=== PATIENT | male | born 1940 | race Caucasian/White ===

== ENCOUNTER 2018-07-03 17:22 | Emergency (ER) | payer MEDICARE, SELFPAY ==
[2018-07-03 17:23] VITALS: BP 106/90; PULSE 69; RESP 16; TEMP 36.4; O2SAT 96; BMI 36.1
--- NOTE | 2018-07-03 18:04 | CT_ITS ---
STUDY: CT THORACIC SPINE WITHOUT CONTRAST REASON FOR EXAM: Male, 78 years old. Fall. RADIATION DOSAGE (If Supplied By Facility): CTDIvol = ( 53.14 ) mGy, DLP = ( 1889.24 ) mGycm TECHNIQUE: The patient was scanned in a multi detector CT scanner. High resolution imaging was performed. Sagittal and coronal images were reconstructed. Individualized dose optimization techniques were used for this CT. COMPARISON: None. FINDINGS: There is exaggerated kyphosis. Normal alignment. There is diffuse demineralization. There has been kyphoplasty of T7. No other compression fractures are seen. There are moderate diffuse degenerative changes and diffuse ankylosis along the anterior spine. No gross compromise of the spinal canal at any level. No fractures are seen of the visualized ribs. No gross acute abnormality seen of the visualized lungs. CT/Spine Thoracic without Contras IMPRESSION: No acute abnormality. Degenerative changes.. Electronically Signed: Juanito Turcios MD at 19:58 EST , Service support ,
--- NOTE | 2018-07-03 18:04 | CT_ITS ---
STUDY: CT CERVICAL SPINE WITHOUT CONTRAST REASON FOR EXAM: Male, 78 years old. Fall. Previous surgery. RADIATION DOSAGE (If Supplied By Facility): CTDIvol = ( 32.69 ) mGy, DLP = ( 765.54 ) mGycm TECHNIQUE: High resolution transaxial imaging was performed without contrast material. Sagittal and coronal images were reconstructed. Individualized dose optimization techniques were used for this CT. COMPARISON: 02/20/2016 FINDINGS: No definite change and no acute abnormality. Stable extensive postsurgical changes of anterior cervical fusion and bony fusion at C5, C6, and C7. The fixation hardware is intact. Normal craniocervical junction. Degenerative changes between C1 and C2 but intact C1-C2 articulation. The odontoid is intact. Normal alignment. Multilevel degenerative disc disease, stable. Fusion of the visualized upper thoracic spine. Facet joints intact at all levels with prominent degenerative changes. Axial images do not show definite spinal stenosis at any level. CT/Spine Cervical without Contras IMPRESSION: No change and no acute abnormality. Degenerative and postsurgical changes. Electronically Signed: Juanito Turcios MD at 19:56 EST , Service support ,
--- NOTE | 2018-07-03 18:04 | CT_ITS ---
STUDY: CT LUMBAR SPINE WITHOUT CONTRAST REASON FOR EXAM: Male, 78 years old. Fall. Previous surgery. RADIATION DOSAGE (If Supplied By Facility): CTDIvol = ( 54.63 ) mGy, DLP = ( 2242.35 ) mGycm TECHNIQUE: The patient was scanned in a multi detector CT scanner. High resolution transaxial imaging was performed. Sagittal and coronal images were reconstructed. Individualized dose optimization techniques were used for this CT. COMPARISON: 02/20/2016 FINDINGS: No gross change or acute abnormality. No compression fractures. There is severe demineralization. Stable postsurgical changes of L4, L5, and S1 with intrapedicular screws and posterior rods, discectomies, and fusion between L4-L5 and L5-S1. Normal curvature. Normal alignment. Prominent anterior osteophytes especially at L1-L2, stable. Axial images show: L1-L2 has bilateral moderate spinal stenosis. L2-L3 has moderate to severe bilateral neural foraminal narrowing. L3-L4 has mild to moderate central canal stenosis and moderate to severe bilateral neural foraminal narrowing. L4-L5 is very difficult to interpret because of metal artifact. Probable moderate to severe bilateral neural foraminal narrowing. L5-S1 has bilateral moderate to severe neural foraminal narrowing. The visualized paraspinal soft tissues and structures show no gross acute abnormalities. Heavily calcified aorta. Sacroiliac joints are intact bilaterally. CT/Spine Lumbar without Contrast IMPRESSION: No change. No acute abnormality. No compression fractures. Multilevel degenerative and postoperative changes as detailed above. Electronically Signed: Juanito Turcios MD at 19:52 EST , Service support ,
[2018-07-03] MEDS: Morphine 4 MG/ML Syringe IV (18:50)
[2018-07-03] MEDS: Ondansetron 4 MG/2 ML Vial IV (18:51)
[2018-07-03 19:42] VITALS: BP 118/90; PULSE 68; RESP 16; O2SAT 97
[2018-07-03 19:46] VITALS: BP 132/77; PULSE 67; RESP 16; O2SAT 96
--- NOTE | 2018-07-03 20:54 | ED.VISSUMM ---
- ER Visit Summary Date of Service: 07/03/18 Chief Complaint: Fall History of Present Illness: The patient is a 78 M who lost his balance and fell backwards. He is complaining of pain throughout his entire back. He does have a history of prior back surgery and kyphoplasty. He just got an injection in his neck last week. Patient does complain of tingling in his feet. He said previously he has had tingling in his toes chronically. He did not strike his head or lose consciousness. Physical Examination: Vital signs unremarkable. Patient sitting upright in bed no acute distress. Head neck examination was no sign of trauma. He does have mild C-spine tenderness. Heart is regular rate and rhythm. Lung sounds are clear. Abdomen is soft and nontender. Active bowel sounds are noted throughout. Extremity examination was a 1/2 cm skin tear to the left elbow without bony tenderness. Full range of motion is noted. Neuro exam reveals 2+ bilateral patellar reflexes with good strength and sensation distally. He has strong pulses. Test Results: CT scan of the C-spine, T-spine, L-spine revealed no evidence of acute abnormality and no fracture. Emergency Department Course and Treatment: Patient was given a single dose of morphine and Zofran here. On repeat evaluation he feels much improved. He does have pain medication at home from his pain management doctor that he will continue. Treatment Plan: [] Disposition: Discharge Impression: 1. Mechanical fall 2. Back contusion This note was generated with [employer] dictation software. It may contain incorrect words, spelling, and punctuation that were not noted in review of the chart prior to signing ED Disposition - Plan for ED Patient: Disposition: Home or Assisted Living Chief Complaint: Fall Instructions: ED Contusion Back, ED Mechanical Fall Referrals: Reji Ross MD [STAFF PHYSICIAN] - Josi Moreira DO [Primary Care Provider] -
--- NOTE | 2018-07-03 20:54 | ED.DEP ---
ED Disposition - Plan for ED Patient: Disposition: Home or Assisted Living Chief Complaint: Fall Instructions: ED Mechanical Fall, ED Contusion Back Referrals: Josi Moreira DO [Primary Care Provider] - Reji Ross MD [STAFF PHYSICIAN] -
[2018-07-03 21:04] VITALS: BP 144/74; PULSE 71; RESP 16; O2SAT 94
== END 2018-07-03 21:06 | disposition home or self-care (01) ==
PROVIDERS: Emergency Provider Emergency Medicine; Family Provider Internal Medicine; PCP Internal Medicine
DX: S20.229A Contusion of unspecified back wall of thorax, initial encounter (principal); S30.0XXA Contusion of lower back and pelvis, initial encounter; I25.10 Atherosclerotic heart disease of native coronary artery without angina pectoris; I10 Essential (primary) hypertension; E78.00 Pure hypercholesterolemia, unspecified; G47.33 Obstructive sleep apnea (adult) (pediatric); F32.9 Major depressive disorder, single episode, unspecified; Z87.891 Personal history of nicotine dependence; Z79.82 Long term (current) use of aspirin; Z79.891 Long term (current) use of opiate analgesic; Z79.899 Other long term (current) drug therapy; W18.30XA Fall on same level, unspecified, initial encounter; Y93.89 Activity, other specified; Y92.89 Other specified places as the place of occurrence of the external cause; Y99.8 Other external cause status
CPT/HCPCS: 72125; 72128; 72131; 96374; 96375; 99285; A4216; J2405

== ENCOUNTER → 2018-10-17 17:43 | Outpatient (CLI) | payer MEDICARE, SELFPAY ==
[2018-08-01 09:35] VITALS: BMI 35.5
[2018-10-17 18:33] LABS: Amphetamine Urine VISTA NEGATIVE (<1000 ng/mL); Barbiturate Urine VISTA NEGATIVE (< 200 ng/mL); Benzodiazepine Urine VISTA POSITIVE (< 200 ng/mL); Cocaine Urine VISTA NEGATIVE (< 300 ng/mL); Ecstacy Urine VISTA NEGATIVE (< 500 ng/mL); Methadone Urine VISTA NEGATIVE (< 300 ng/mL); PCP Urine VISTA NEGATIVE (< 25 ng/mL); THC Urine VISTA NEGATIVE (< 50 ng/mL); Vista UDS pH Range 5
== END ==
PROVIDERS: Family Provider Internal Medicine; PCP Internal Medicine; Referring Provider Anesthesiology Pain Medicine; Visit Provider Anesthesiology Pain Medicine
DX: F11.20 Opioid dependence, uncomplicated (principal)
CPT/HCPCS: 80307

== ENCOUNTER 2018-12-22 11:10 | Emergency (ER) | payer MEDICARE, SELFPAY ==
[2018-08-01 09:35] VITALS: BMI 35.5
[2018-12-22 11:11] VITALS: BP 186/97; PULSE 59; RESP 16; TEMP 36.6; O2SAT 98; BMI 34.7
[2018-12-22 11:16] VITALS: O2SAT 98
--- NOTE | 2018-12-22 11:17 | CT_ITS ---
STUDY: CT BRAIN WITHOUT CONTRAST REASON FOR EXAM: Male, 78 years old. Trauma. Fall. Headache. RADIATION DOSAGE (If Supplied By Facility): CTDIvol = ( 44.99 ) mGy, DLP = ( 880.47 ) mGycm TECHNIQUE: Transaxial CT imaging of the brain was performed without administration of intravenous contrast material. Individualized dose optimization techniques were used for this CT. COMPARISON: February 20, 2016 FINDINGS: Normal soft tissue structures. Normal calvarium. There is arthritic change of the temporomandibular joints. There is moderate cerebral atrophy with widening of the extra-axial spaces and ventricular dilatation. There are areas of decreased attenuation within the white matter tracts of the supratentorial brain, consistent with microvascular disease changes. Normal basal ganglia and thalami. Normal brainstem. Normal cerebellum. There is no intracranial hemorrhage. There are no findings of an acute ischemic infarction. Normal visualized paranasal sinuses. CT/Brain/Head without Contrast IMPRESSION: Chronic involutional changes of the brain. No hemorrhage. Electronically Signed: Neymar Dong MD at 12:36 EDT , Service support ,
--- NOTE | 2018-12-22 11:18 | CT_ITS ---
STUDY: CT CERVICAL SPINE WITHOUT CONTRAST REASON FOR EXAM: Male, 78 years old. Trauma, fall, headache, neck pain RADIATION DOSAGE (If Supplied By Facility): CTDIvol = ( 35.37 ) mGy, DLP = ( 758.37 ) mGycm TECHNIQUE: Thin slice helical CT acquisition of the cervical spine without contrast. Coronal and sagittal 2-D multiplanar reformatted images were saved to the PACS archive. Individualized dose optimization techniques were used for this CT. COMPARISON: None FINDINGS: Supra clavicular and cervical soft tissues unremarkable. Apical lungs clear. Apical thoracic cage within the [id number]-hfyv intact. Odontoid, lateral masses, ring of C1 intact. Facet joints aligned and intact with moderate to moderately severe multilevel facet arthropathy/hypertrophy most prominent C2-C3 and C3-C4. Posterior elements acutely intact. Cervical vertebral body height and alignment are normal. Straightening of the expected cervical lordosis. ACDF plate and screw fixation with interbody spacers at C5-C7, surgical construct intact. Mild disc degenerative features at C4-C5. Bridging anterior osteophytes of the thoracic spine. No significant spinal canal or foraminal stenosis. CT/Spine Cervical without Contras IMPRESSION: No acute cervical spine fracture or traumatic subluxation. Electronically Signed: David Deluca MD at 12:38 EDT Tel , Service support ,
[2018-12-22 12:32] VITALS: BP 176/75; PULSE 57; RESP 14; O2SAT 94
[2018-12-22 12:38] LABS: International Normalized Ratio 1.1; Prothrombin Time (Protime)PT. 13.8 SECONDS (11.7-14.9)
--- NOTE | 2018-12-22 12:49 | ED.VIS.GEN ---
History of Present Illness Chief Complaint: Fall Detail of Chief Complaint: Headache after blunt head trauma Informant: Patient Onset: Today Context: Sudden Onset Timing: Continuous Quality: Head pain Location: Occiput Current Severity: Mild Maximum Severity: Mild Worsened by: Nothing Relieved by: Nothing Associated Symptoms: Nausea and neck pain Narrative: Patient is an elderly male with multiple medical problems who presents after fall. He states he lost his balance. He fell backwards striking his head on the floor. He complains of mild headache. He is on Coumadin. He also complains of significant neck pain. Denies paresthesia, anesthesia motor works. He denies chest pain. He denies shortness of breath. He denies vomiting or diarrhea. He denies any other symptoms. - Past Medical History (1) Physical debility Status: Acute (2) Atherosclerotic heart disease of [place] coronary artery with other forms of angina pectoris Status: Chronic Comment: [id number] and Prox RCA 01/2014 50-60% Cx disease (3) Essential (primary) hypertension Status: Chronic (4) Hyperlipidemia Status: Chronic (5) History of coronary artery stent placement Status: Resolved Comment: PCI-DANIELLE prox ramus, DANIELLE prox-mid RCA Past Medical History - Allergies and Home Meds Allergies/Adverse Reactions: Allergies codeine Allergy (Verified 08/01/18 09:36) Unknown Primary Care Physician: Josi Moreira DO [Primary Care Provider] - Prior records reviewed: Yes Surgical History: appendectomy, cholecystectomy, - - Back surgery kyphoplasty, cervical and lumbar spine surgery, arm surgery Lives: Alone Smoking Status: Former smoker Alcohol: None Drugs: None Review of Systems General: Denies: Chills, Fever, Malaise, Sweats Eyes: Denies: Visual changes - bilaterally, Blurred Vision - bilaterally, Diplopia ENT: Denies: Bilateral ear pain, Rhinorrhea, Sore throat Cardiovascular: Denies: Chest pain, Palpitations Respiratory: Denies: Dyspnea, Cough, Dyspnea on exertion Gastrointestinal: Reports: Nausea Musculoskeletal: Reports: Neck pain. Denies: Myalgias, Arthralgias, Back pain, Swelling, Extremity Pain, -, - Neurological: Reports: Headache. Denies: Weakness, Parasthesia, Numbness, -, - Endocrine: Denies: Polyuria, Polydipsia Hematologic: Reports: Easy bruising. Denies: Easy bleeding Physical Exam Vital Signs/Narrative: Vital Signs Temp Pulse Resp BP Pulse Ox 12/22/18 12:32 57 L 14 176/75 H 94 12/22/18 11:16 98 12/22/18 11:11 97.8 F 59 L 16 186/97 H 98 Inital Vital Signs reviewed: Yes General: Well nourished, Well developed, No Acute Distress Head: Normocephalic, Trauma, Tenderness - Tenderness over the occiput. There is no palpable depression. There is no clinical findings of basal skull fracture. Eyes: Perrl, EOMI. Negative for: Pale conjunctiva, Scleral icterus ENT: Moist mucous membranes, No rhinorrhea, TM's clear Neck: No lymphadenopathy, No JVD, - - Pain to palpation over C5-6 spinous process midline Cardiovascular: Regular rate, Regular rhythm, No murmurs, Normal S1, Normal S2 Respiratory: No distress, CTA bilaterally, Chest nontender Abdomen: Soft, Nontender, Nondistended, Normal bowel sounds, No masses Back: Negative for: Nontender, CVA tenderness, Spinal tenderness Extremities: Nontender, Edema Skin: Normal color, No rash. Negative for: Cyanosis, Jaundice Neurological: Alert, Oriented x3, Cranial nerves II-XII grossly intact, Normal Strength, Normal Sensation, Normal DTR - There is no clonus or Babinski sign. Psychological: Normal affect, Normal Mood Diagnostic/Tx/Re-eval Impressions Brain CT 12/22/18 11:17 IMPRESSION: Chronic involutional changes of the brain. No hemorrhage. Electronically Signed: Neymar Dong MD at 12:36 EDT , Service support , Cervical Spine CT 12/22/18 11:18 IMPRESSION: No acute cervical spine fracture or traumatic subluxation. Electronically Signed: David Deluca MD at 12:38 EDT Tel , Service support , 12/22/18 11:17 Brain/Head without Contrast [CT] Stat 12/22/18 11:18 Spine Cervical without Contras [CT] Stat - Medical Decision Making Since patient is on Coumadin with history of head trauma and headache CT of the head was obtained as well as PT/INR. Since patient has significant pain with palpation and is reluctant to move his head CT of the cervical spine was obtained. CT of the head and neck were reviewed by me and interpreted the radiologist as no acute process. INR is 1.1. Since her subtherapeutic and images are normal plan is to discharge to home with appropriate home-going instructions. ED Disposition - Plan for ED Patient: Disposition: Home or Assisted Living Diagnosis: Concussion without loss of consciousness, initial encounter, Anticoagulated on Coumadin, Sprain of ligaments of cervical spine, initial encounter Instructions: ED Mechanical Fall, ED Concussion, ED Sprain Strain Neck Prescriptions: Hydrocodone Bitart/Apap 5-325 [[place] 5MG-325MG] 1 tab PO Q6H PRN PRN 3 Days #10 tab PRN Reason: Pain Referrals: Josi Moreira DO [Primary Care Provider] - As Needed
--- NOTE | 2018-12-22 12:53 | ED.DCSUM_ITS ---
History of Present Illness Chief Complaint: Fall Detail of Chief Complaint: Headache after blunt head trauma Informant: Patient Onset: Today Context: Sudden Onset Timing: Continuous Quality: Head pain Location: Occiput Current Severity: Mild Maximum Severity: Mild Worsened by: Nothing Relieved by: Nothing Associated Symptoms: Nausea and neck pain Narrative: Patient is an elderly male with multiple medical problems who presents after fall. He states he lost his balance. He fell backwards striking his head on the floor. He complains of mild headache. He is on Coumadin. He also complains of significant neck pain. Denies paresthesia, anesthesia motor works. He denies chest pain. He denies shortness of breath. He denies vomiting or diarrhea. He denies any other symptoms. - Past Medical History (1) Physical debility Status: Acute (2) Atherosclerotic heart disease of [place] coronary artery with other forms of angina pectoris Status: Chronic Comment: [id number] and Prox RCA 01/2014 50-60% Cx disease (3) Essential (primary) hypertension Status: Chronic (4) Hyperlipidemia Status: Chronic (5) History of coronary artery stent placement Status: Resolved Comment: PCI-DANIELLE prox ramus, DANIELLE prox-mid RCA Past Medical History - Allergies and Home Meds Allergies/Adverse Reactions: Allergies codeine Allergy (Verified 08/01/18 09:36) Unknown Primary Care Physician: Josi Moreira DO [Primary Care Provider] - Prior records reviewed: Yes Surgical History: appendectomy, cholecystectomy, - - Back surgery kyphoplasty, cervical and lumbar spine surgery, arm surgery Lives: Alone Smoking Status: Former smoker Alcohol: None Drugs: None Review of Systems General: Denies: Chills, Fever, Malaise, Sweats Eyes: Denies: Visual changes - bilaterally, Blurred Vision - bilaterally, Diplopia ENT: Denies: Bilateral ear pain, Rhinorrhea, Sore throat Cardiovascular: Denies: Chest pain, Palpitations Respiratory: Denies: Dyspnea, Cough, Dyspnea on exertion Gastrointestinal: Reports: Nausea Musculoskeletal: Reports: Neck pain. Denies: Myalgias, Arthralgias, Back pain, Swelling, Extremity Pain, -, - Neurological: Reports: Headache. Denies: Weakness, Parasthesia, Numbness, -, - Endocrine: Denies: Polyuria, Polydipsia Hematologic: Reports: Easy bruising. Denies: Easy bleeding Physical Exam Vital Signs/Narrative: Vital Signs Temp Pulse Resp BP Pulse Ox 12/22/18 12:32 57 L 14 176/75 H 94 12/22/18 11:16 98 12/22/18 11:11 97.8 F 59 L 16 186/97 H 98 Inital Vital Signs reviewed: Yes General: Well nourished, Well developed, No Acute Distress Head: Normocephalic, Trauma, Tenderness - Tenderness over the occiput. There is no palpable depression. There is no clinical findings of basal skull fracture. Eyes: Perrl, EOMI. Negative for: Pale conjunctiva, Scleral icterus ENT: Moist mucous membranes, No rhinorrhea, TM's clear Neck: No lymphadenopathy, No JVD, - - Pain to palpation over C5-6 spinous process midline Cardiovascular: Regular rate, Regular rhythm, No murmurs, Normal S1, Normal S2 Respiratory: No distress, CTA bilaterally, Chest nontender Abdomen: Soft, Nontender, Nondistended, Normal bowel sounds, No masses Back: Negative for: Nontender, CVA tenderness, Spinal tenderness Extremities: Nontender, Edema Skin: Normal color, No rash. Negative for: Cyanosis, Jaundice Neurological: Alert, Oriented x3, Cranial nerves II-XII grossly intact, Normal Strength, Normal Sensation, Normal DTR - There is no clonus or Babinski sign. Psychological: Normal affect, Normal Mood Diagnostic/Tx/Re-eval Impressions Brain CT 12/22/18 11:17 IMPRESSION: Chronic involutional changes of the brain. No hemorrhage. Electronically Signed: Neymar Dong MD at 12:36 EDT , Service support , Cervical Spine CT 12/22/18 11:18 IMPRESSION: No acute cervical spine fracture or traumatic subluxation. Electronically Signed: David Deluca MD at 12:38 EDT Tel , Service support , 12/22/18 11:17 Brain/Head without Contrast [CT] Stat 12/22/18 11:18 Spine Cervical without Contras [CT] Stat - Medical Decision Making Since patient is on Coumadin with history of head trauma and headache CT of the head was obtained as well as PT/INR. Since patient has significant pain with palpation and is reluctant to move his head CT of the cervical spine was obtained. CT of the head and neck were reviewed by me and interpreted the radiologist as no acute process. INR is 1.1. Since her subtherapeutic and images are normal plan is to discharge to home with appropriate home-going instructions. ED Disposition - Plan for ED Patient: Disposition: Home or Assisted Living Diagnosis: Concussion without loss of consciousness, initial encounter, Anticoagulated on Coumadin, Sprain of ligaments of cervical spine, initial encounter Instructions: ED Mechanical Fall, ED Concussion, ED Sprain Strain Neck Prescriptions: Hydrocodone Bitart/Apap 5-325 [[place] 5MG-325MG] 1 tab PO Q6H PRN PRN 3 Days #10 tab PRN Reason: Pain Referrals: Josi Moreira DO [Primary Care Provider] - As Needed
[2018-12-22] MEDS: Ondansetron 4 MG/2 ML Vial IV (13:26)
[2018-12-22] MEDS: Morphine 4 MG/ML Syringe IV (13:26)
[2018-12-22 15:59] VITALS: BP 176/83; PULSE 73; RESP 14; O2SAT 98
== END 2018-12-22 16:01 | disposition home or self-care (01) ==
PROVIDERS: Emergency Provider Emergency Medicine; Family Provider Internal Medicine; PCP Internal Medicine
DX: S06.0X0A Concussion without loss of consciousness, initial encounter (principal); S13.9XXA Sprain of joints and ligaments of unspecified parts of neck, initial encounter; I10 Essential (primary) hypertension; I25.10 Atherosclerotic heart disease of native coronary artery without angina pectoris; E78.5 Hyperlipidemia, unspecified; Z95.5 Presence of coronary angioplasty implant and graft; Z79.01 Long term (current) use of anticoagulants; Z87.891 Personal history of nicotine dependence; Z79.82 Long term (current) use of aspirin; Z79.899 Other long term (current) drug therapy; W18.30XA Fall on same level, unspecified, initial encounter; Y93.89 Activity, other specified; Y92.89 Other specified places as the place of occurrence of the external cause; Y99.8 Other external cause status
CPT/HCPCS: 70450; 72125; 85610; 96374; 96375; 99285; J7030; A4216; J2405

== ENCOUNTER → 2019-01-10 | Outpatient (CLI) | payer MEDICARE, SELFPAY ==
[2018-12-22 11:11] VITALS: BMI 34.7
--- NOTE | 2019-01-10 18:04 | RAD_ITS ---
STUDY: X-RAY - LUMBAR SPINE REASON FOR EXAM: Male, 78 years old. Fall TECHNIQUE: 4 view(s) of the lumbar spine were obtained. COMPARISON: None FINDINGS: Normal lumbar lordosis. There is no substantial scoliosis. There is a normal alignment of the vertebrae. Degenerative changes of the vertebral bodies with spurring at the endplates. Surgical fusion of L4-S1. Normal disc space heights. The soft tissue structures are unremarkable. Mildly calcified aorta. RAD/Lumbar Spine 2 or 3 Views IMPRESSION: Moderate degenerative changes of the lumbar spine. Correlate with CT or MRI if clinical symptoms persist. Electronically Signed: Adam Martinez DO at 18:52 EDT Tel [phone], Service support ,
== END | disposition home or self-care (01) ==
LOC: RAD 18:00
PROVIDERS: Family Provider Internal Medicine; PCP Internal Medicine; Referring Provider Anesthesiology Pain Medicine; Visit Provider Anesthesiology Pain Medicine
DX: M51.36 Other intervertebral disc degeneration, lumbar region (principal)
CPT/HCPCS: 72100

== ENCOUNTER → 2019-02-03 | Outpatient (CLI) | payer MEDICARE, SELFPAY ==
[2019-01-30 09:51] VITALS: BMI 33.7
--- NOTE | 2019-02-03 07:23 | MRI_ITS ---
STUDY: MRI LUMBAR SPINE WITHOUT CONTRAST REASON FOR EXAM: Male, 78 years old. Back pain with fall 4 weeks ago TECHNIQUE: Standardized fat and water weighted pulse sequences were obtained in the sagittal and axial planes. COMPARISON: 02/20/2016 FINDINGS: T12-L1: Normal endplates. Normal disc height, hydration and morphology. Normal bilateral facet joints. Normal central canal and bilateral lateral recesses. Normal bilateral intervertebral neural foramina. Normal lumbar lordosis. There is no substantial scoliosis. Normal conus medullaris that terminates at the L1 level. Bilateral posterior pedicle fusions at L4 and L5. Right posterior S1 pedicle fusion. Surgical fusions of the L4-5 and L5-S1 disc spaces. L1-2: Bulging annulus and bilateral facet hypertrophy with mild bilateral foraminal stenoses. L2-3: Bulging annulus and bilateral facet hypertrophy with mild bilateral foraminal stenoses. L3-4: Bulging annulus and bilateral facet hypertrophy with moderate bilateral foraminal stenoses. L4-5: Right laminectomy. Residual osteophytes with moderate bilateral foraminal stenoses. L5-S1: Right laminectomy. Residual osteophytes and bilateral facet hypertrophy with moderate bilateral foraminal stenoses. Normal visualized sacral ala. Normal visualized paraspinous soft tissue structures. Bone harvesting from the right ilium. MRI/Spine Lumbar (Routine) IMPRESSION: Multilevel degenerative disease and postoperative change as described. Moderate bilateral foraminal stenoses at L3-4, L4-5, and L5-S1. No significant change from prior study. Electronically Signed: Armando Leija MD at 10:23 EDT Tel , Service support ,
== END | disposition home or self-care (01) ==
LOC: MRI 07:07
PROVIDERS: Family Provider Internal Medicine; PCP Internal Medicine; Referring Provider Anesthesiology Pain Medicine; Visit Provider Anesthesiology Pain Medicine
DX: M54.9 Dorsalgia, unspecified (principal); M79.606 Pain in leg, unspecified
CPT/HCPCS: 72148

== ENCOUNTER → 2019-02-17 | Outpatient (CLI) | payer MEDICARE, SELFPAY ==
[2019-01-30 09:51] VITALS: BMI 33.7
--- NOTE | 2019-02-17 08:30 | CT_ITS ---
STUDY: CT ABDOMEN AND PELVIS WITHOUT CONTRAST REASON FOR EXAM: Male, 78 years old. RADIATION DOSAGE (If Supplied By Facility): CTDIvol = ( 30.32 ) mGy, DLP = ( 1677.81 ) mGycm TECHNIQUE: Transaxial images were obtained from the dome of the diaphragm to the symphysis pubis without oral contrast, and without intravenous contrast. Sagittal and coronal images were reconstructed. Individualized dose optimization techniques were used for this CT. COMPARISON: None. FINDINGS: The visualized lung bases are unremarkable. The visualized portions of the heart are within normal limits except for calcified coronary arteries. Normal liver. Absent gallbladder, no dilatation of the intra or extrahepatic biliary system. Normal spleen. Normal pancreas. Normal bilateral adrenal glands. Normal right kidney. Normal left kidney. Normal visualized stomach. Normal small intestine. Normal colon except for few diverticula. The appendix is absent. Atherosclerotic abdominal aorta. Normal inferior vena cava. Normal retroperitoneum. Normal urinary bladder. There is a penile prosthesis reservoir on the left side. Normal abdominal wall is unremarkable except for small umbilical hernia. Spinal fixation seen in the lower lumbar spine with hardware identified. Moderate hypertrophic osteophyte seen in the upper lumbar region. CT/Abdomen/Pelvis without Cont IMPRESSION: Negative unenhanced CT of the abdomen and pelvis. Electronically Signed: Benny Kim, at 10:07 EDT Tel , Service support ,
== END | disposition home or self-care (01) ==
LOC: CT 08:28
PROVIDERS: Family Provider Internal Medicine; PCP Internal Medicine; Referring Provider Internal Medicine; Visit Provider Internal Medicine
DX: R10.9 Unspecified abdominal pain (principal)
CPT/HCPCS: 74176

== ENCOUNTER → 2019-03-02 | Outpatient (CLI) | payer MEDICARE, SELFPAY ==
[2019-01-30 09:51] VITALS: BMI 33.7
--- NOTE | 2019-03-02 14:15 | US_ITS ---
STUDY: RENAL ULTRASOUND - COMPLETE REASON FOR EXAM: Male, 78 years old. Flank pain. TECHNIQUE: Ultrasound evaluation of the kidneys was performed with real-time and static sifuentes-scale imaging. COMPARISON: None. FINDINGS: RIGHT KIDNEY: The right kidney measures 12.5 x 5.8 x 5.8 cm. There is renal cortical thinning, 0.9 cm. Mildly echogenic cortex. There is no mass, cyst, calculus or hydronephrosis. LEFT KIDNEY: The left kidney measures 11.2 x 4.9 x 5.8 cm. Mild cortical thinning, but portions of the cortex measure up to 1.4 cm. Mildly echogenic cortex.. There is no mass, cyst, calculus or hydronephrosis. BLADDER: Distended volume 22 mL, underdistended. Grossly normal features. US/Kidney and Bladder IMPRESSION: Mildly echogenic renal cortices bilaterally with renal cortical thinning bilaterally greater on the right. There is no evidence of renal mass, cyst, calculus or hydronephrosis. Electronically Signed: David Deluca MD at 14:54 EDT Tel , Service support ,
== END | disposition home or self-care (01) ==
PROVIDERS: Family Provider Internal Medicine; PCP Internal Medicine; Referring Provider Internal Medicine; Visit Provider Internal Medicine
DX: R10.9 Unspecified abdominal pain (principal)
CPT/HCPCS: 76770

== ENCOUNTER → 2019-03-05 | Outpatient (CLI) | payer MEDICARE, SELFPAY ==
[2019-01-30 09:51] VITALS: BMI 33.7
--- NOTE | 2019-03-05 11:37 | RAD_ITS ---
STUDY: X-RAY - UNILATERAL RIBS ( LEFT ) REASON FOR EXAM: Male, 78 years old. Trauma TECHNIQUE: 4 view(s) of the ribs. COMPARISON: None. FINDINGS: There is a healed fracture of the left posterior 10th rib. There also appears to be healed fracture of the left sixth and seventh rib The visualized lung is clear and expanded. RAD/Ribs Unil 2V No CXR IMPRESSION: Healed fractures left sixth seventh and 10th ribs No evidence for acute fracture Electronically Signed: Kevyn Gu MD at 17:42 EDT , Service support ,
== END | disposition home or self-care (01) ==
LOC: HPRAD 11:33
PROVIDERS: Family Provider Internal Medicine; PCP Internal Medicine; Referring Provider Internal Medicine; Visit Provider Internal Medicine
DX: R07.81 Pleurodynia (principal)
CPT/HCPCS: 71100

== ENCOUNTER → 2019-03-13 | Outpatient (CLI) | payer MEDICARE, SELFPAY ==
[2019-01-30 09:51] VITALS: BMI 33.7
--- NOTE | 2019-03-13 18:44 | MRI_ITS ---
STUDY: MRI THORACIC SPINE WITHOUT CONTRAST REASON FOR EXAM: Male, 78 years old. Sharp left-sided back pain for 4 months. TECHNIQUE: Standardized fat and water weighted pulse sequences were obtained in the sagittal and axial planes. COMPARISON: None. FINDINGS: Normal kyphosis of the thoracic spine. There is no substantial scoliosis. T1-2, T2-3, T3-4, T4-5, T5-6, T6-7, T7-8, T8-9, T9-10, T10-11, T11-12: There is heterogeneous increased signal along the inferior endplate of T9 and superior endplate of T10 with noted mild increased signal within the disc space on STIR imaging. There is dark heterogeneous signal within the T7 vertebra consistent with methyl methacrylate treatment. Multilevel disc desiccation is noted with no evidence of disc bulge or spinal canal narrowing. Normal visualized thoracic cord. Normal conus medullaris that terminates at the . The soft tissue structures are unremarkable. MRI/Spine Thoracic (Routine) IMPRESSION: Findings consistent with acute microfracture along the superior and inferior endplate of T9 and T10. There is mild increased signal within the disc space on STIR imaging with component of early discitis not completely excluded. Recommend conservative treatment and follow-up imaging to document stability versus resolution. Electronically Signed: Jordy Trimble DO at 0:05 EDT , Service support ,
== END | disposition home or self-care (01) ==
LOC: MRI 17:39
PROVIDERS: Family Provider Internal Medicine; PCP Internal Medicine; Referring Provider Internal Medicine; Visit Provider Internal Medicine
DX: M54.6 Pain in thoracic spine (principal)
CPT/HCPCS: 72146

== ENCOUNTER 2019-05-31 12:56 | Day surgery (SDC) | payer MEDICARE, SELFPAY ==
[2019-01-30 09:51] VITALS: BMI 33.7
[2019-05-31 13:36] VITALS: BP 112/67; PULSE 64; RESP 16; TEMP 36.9; O2SAT 92; BMI 34.3
[2019-05-31] MEDS: Lactated Ringers 1,000 ML 100 ML IV (13:47)
[2019-05-31] MEDS: Bupivacaine Mpf 0.5% 30 ML VIAL (16:00)
--- NOTE | 2019-05-31 16:59 | RAD_ITS ---
STUDY: X-RAY - THORACIC SPINE REASON FOR EXAM: Male, 78 years old. Kyphoplasty TECHNIQUE: Multiple view(s) of the thoracic spine were obtained. COMPARISON: None. FINDINGS: Multiple procedural fluoroscopic views for localization during kyphoplasty procedure. Evaluation not for diagnostic purposes. RAD/Thoracic Spine 2 Views IMPRESSION: Multiple fluoroscopic views for localization during kyphoplasty. Electronically Signed: Kevyn Leyva, at 17:29 EDT Tel , Service support ,
[2019-05-31 17:08] VITALS: BP 112/67; BP 166/89; PULSE 77; RESP 18; TEMP 36.7; O2SAT 91
[2019-05-31 17:15] VITALS: BP 112/67; BP 140/80; PULSE 72; RESP 18; O2SAT 95
[2019-05-31 17:30] VITALS: BP 112/67; BP 132/83; PULSE 68; RESP 18; O2SAT 96
[2019-05-31 17:35] VITALS: BP 112/67; BP 143/86; PULSE 70; RESP 18; TEMP 36.3; O2SAT 95
[2019-05-31 18:00] VITALS: BP 112/67
== END 2019-05-31 18:36 | disposition home or self-care (01) ==
LOC: SDC 12:57 → AC 12:58
PROVIDERS: Family Provider Internal Medicine; PCP Internal Medicine; Referring Provider Anesthesiology Pain Medicine; Visit Provider Anesthesiology Pain Medicine
PROC: (CPT 22513; principal; 2019-05-31 14:10)
DX: M80.08XA Age-related osteoporosis with current pathological fracture, vertebra(e), initial encounter for fracture (principal); M51.14 Intervertebral disc disorders with radiculopathy, thoracic region; I10 Essential (primary) hypertension; G47.30 Sleep apnea, unspecified; Z86.73 Personal history of transient ischemic attack (TIA), and cerebral infarction without residual deficits; K21.9 Gastro-esophageal reflux disease without esophagitis; E78.00 Pure hypercholesterolemia, unspecified; F41.9 Anxiety disorder, unspecified; F32.9 Major depressive disorder, single episode, unspecified; Z95.5 Presence of coronary angioplasty implant and graft; Z87.891 Personal history of nicotine dependence; Z79.82 Long term (current) use of aspirin; Z79.891 Long term (current) use of opiate analgesic; Z79.899 Other long term (current) drug therapy; Z79.02 Long term (current) use of antithrombotics/antiplatelets
CPT/HCPCS: 22513; 22515; 72070; 76000; J7120

== ENCOUNTER 2019-06-08 11:22 | Day surgery (SDC) | payer MEDICARE, SELFPAY ==
[2019-06-08 11:58] VITALS: BP 114/62; PULSE 56; RESP 16; TEMP 37; O2SAT 98; BMI 34.2
[2019-06-08] MEDS: Lactated Ringers 1,000 ML 100 ML IV (12:07)
[2019-06-08] MEDS: Cefazolin 2 GM in 0.9% Normal Saline 100 ML IV (13:39)
--- NOTE | 2019-06-08 13:50 | RAD_ITS ---
CLINICAL HISTORY: Male, 78 years old. Back pain. PROCEDURE: KYPHOPLASTY - T9 kyphoplasty. TECHNIQUE: (All elements of maximal sterile barrier technique followed, including US elements as applicable) Intraoperative fluoroscopic services are provided for T9 kyphoplasty. RAD/Spine 1 View Any Level IMPRESSION: Intraoperative fluoroscopic services provided for kyphoplasty of the T9 vertebrae. Electronically Signed: Rai Scott, at 8:32 EDT , Service support ,
[2019-06-08] MEDS: Bupivacaine Mpf 0.5% 30 ML VIAL (14:20)
[2019-06-08 14:43] VITALS: BP 114/62; BP 143/74; PULSE 55; RESP 16; TEMP 36.3; O2SAT 92
[2019-06-08 15:00] VITALS: BP 114/62; BP 142/109; PULSE 58; RESP 16; O2SAT 92
[2019-06-08 15:15] VITALS: BP 114/62; BP 132/67; PULSE 62; RESP 16; O2SAT 94
[2019-06-08 15:20] VITALS: BP 114/62; BP 133/68; PULSE 62; RESP 16; TEMP 36.6; O2SAT 92
[2019-06-08 15:56] VITALS: BP 114/62
== END 2019-06-08 16:14 | disposition home or self-care (01) ==
LOC: SDC 11:22 → AC 11:23
PROVIDERS: Family Provider Internal Medicine; PCP Internal Medicine; Referring Provider Anesthesiology Pain Medicine; Visit Provider Anesthesiology Pain Medicine
PROC: (CPT 22513; principal; 2019-06-08 12:45)
DX: M80.08XA Age-related osteoporosis with current pathological fracture, vertebra(e), initial encounter for fracture (principal); M51.14 Intervertebral disc disorders with radiculopathy, thoracic region; K21.9 Gastro-esophageal reflux disease without esophagitis; E78.00 Pure hypercholesterolemia, unspecified; F32.9 Major depressive disorder, single episode, unspecified; I10 Essential (primary) hypertension; Z95.5 Presence of coronary angioplasty implant and graft; Z87.891 Personal history of nicotine dependence; Z79.82 Long term (current) use of aspirin; Z79.899 Other long term (current) drug therapy
CPT/HCPCS: 22513; 72020; 76000; J7120

== ENCOUNTER → 2019-06-14 | Outpatient (CLI) | payer MEDICARE, SELFPAY ==
[2019-06-08 11:58] VITALS: BMI 34.2
[2019-06-14 13:58] LABS: PSA,Total- Diagnostic 0.41 ng/mL (0.0-4.0)
== END | disposition home or self-care (01) ==
LOC: MTLAB 11:40
PROVIDERS: Family Provider Internal Medicine; PCP Internal Medicine; Referring Provider Urology; Visit Provider Urology
DX: R97.20 Elevated prostate specific antigen [PSA] (principal)
CPT/HCPCS: 36415; 84153

== ENCOUNTER 2019-10-17 09:45 | Emergency (ER) | payer MEDICARE, SELFPAY ==
[2019-09-06 12:40] VITALS: BMI 32.6
[2019-10-17 09:46] VITALS: BP 166/56; PULSE 68; RESP 15; TEMP 36.4; O2SAT 96; BMI 32.2
--- NOTE | 2019-10-17 10:01 | CT_ITS ---
STUDY: CT BRAIN WITHOUT CONTRAST REASON FOR EXAM: Male, 79 years old. FALL RADIATION DOSAGE (If Supplied By Facility): CTDIvol = ( 44.99 ) mGy, DLP = ( 849.54 ) mGycm TECHNIQUE: Transaxial CT imaging of the brain was performed without administration of intravenous contrast material. Individualized dose optimization techniques were used for this CT. COMPARISON: Comparison is made with prior study dated December 22, 2018. FINDINGS: Normal soft tissue structures. Normal calvarium. There is moderate cerebral atrophy with widening of the extra-axial spaces and ventricular dilatation. There are areas of decreased attenuation within the white matter tracts of the supratentorial brain, consistent with microvascular disease changes. There are small punctate calcifications of the basal ganglia which are seen in the aging brain as a normal variant. Normal brainstem. Normal cerebellum. There is no intracranial hemorrhage. There are no findings of an acute ischemic infarction. Atherosclerotic calcification of the cavernous portions of the internal carotid arteries bilaterally. Minimal mucosal thickening of the ethmoid sinuses. CT/Brain/Head without Contrast IMPRESSION: Chronic involutional changes of the brain. Electronically Signed: Rai Scott, at 11:22 EST , Service support ,
--- NOTE | 2019-10-17 10:01 | CT_ITS ---
STUDY: CT CERVICAL SPINE WITHOUT CONTRAST REASON FOR EXAM: Male, 79 years old. FALL RADIATION DOSAGE (If Supplied By Facility): CTDIvol = ( 29.65 ) mGy, DLP = ( 683.04 ) mGycm TECHNIQUE: High resolution transaxial imaging was performed without contrast material. Sagittal and coronal images were reconstructed. Individualized dose optimization techniques were used for this CT. COMPARISON: Comparison is made with prior examination dated December 22, 2018. FINDINGS: Normal craniovertebral junction. There are degenerative changes of the anterior atlantoaxial articulation. Normal odontoid process. Normal cervical lordosis. The patient is status post anterior screw and plate fixation at the C5-C6 and C6-C7 levels. C2-3: Normal endplates. Normal disc height and morphology. Normal central canal and intervertebral neuroforamina. C3-4: Facet joint osteoarthritis and hypertrophy with moderate degree of bilateral neural foraminal stenosis. C4-5: Facet joint osteoarthritis and hypertrophy with bilateral moderate degree of neural foraminal stenosis. C5-6: Status post anterior fusion. C6-7: Status post anterior fusion. C7-T1: Normal endplates. Normal disc height and morphology. Normal central canal and intervertebral neuroforamina. Normal visualized soft tissue structures. CT/Spine Cervical without Contras IMPRESSION: Multilevel degenerative changes, as described above. Status post anterior fusion at the C5-C6 and C6-C7 levels. Electronically Signed: Rai Scott, at 11:25 EST , Service support ,
--- NOTE | 2019-10-17 10:02 | RAD_ITS ---
STUDY: X-RAY - LUMBAR SPINE REASON FOR EXAM: Male, 79 years old. PATIENT FELL TODAY. PAIN IN ENTIRE SPINE AND LEFT HIP/PELVIS AREA. PATIENT STATES HAS HAD SEVERAL BACK SURGERYS. FUSIONS AND KYPHOPLASTYS WELL. TECHNIQUE: 3 view(s) of the lumbar spine were obtained. COMPARISON: 01/10/2019 FINDINGS: Normal lumbar lordosis. There is no substantial scoliosis. Status post discectomy and transpedicular fixation from L4 through S1 with anatomic alignment. There is multilevel endplate spondylosis of the lumbar vertebrae. There is multi-level degenerative disc disease with multi-level disc space narrowing. The soft tissue structures are unremarkable. RAD/Lumbar Spine 2 or 3 Views IMPRESSION: No acute fracture or subluxation Electronically Signed: David Roberts MD at 11:41 EST Tel , Service support ,
[2019-10-17] MEDS: Morphine 4 MG/ML Syringe IM (10:56)
[2019-10-17] MEDS: Ondansetron 4 MG/2 ML Vial IV (10:56)
[2019-10-17 11:10] LABS: International Normalized Ratio 1.2; Prothrombin Time (Protime)PT. 15.3 SECONDS (11.7-14.9)
--- NOTE | 2019-10-17 11:20 | RAD_ITS ---
STUDY: X-RAY - PELVIS AND LEFT HIP REASON FOR EXAM: Male, 79 years old. PATIENT FELL TODAY. PAIN IN ENTIRE SPINE AND LEFT HIP/PELVIS AREA. PATIENT STATES HAS HAD SEVERAL BACK SURGERYS. FUSIONS AND KYPHOPLASTYS WELL. TECHNIQUE: 3 views of the pelvis and hip. COMPARISON: None. FINDINGS: There is a non-specific bowel gas pattern. Normal visualized soft tissue structures. Penile implant. Normal bilateral iliac wings, sacroiliac joints and visualized sacrum. Normal bilateral superior and inferior pubic rami. Normal pubic symphysis. Normal bilateral ischial tuberosities. Normal visualized femoral head. Normal acetabulum. Normal hip joint. RAD/HIP, UNI W/ Pelvis 2-3 Views IMPRESSION: Normal x-ray examination of the pelvis and hip. Electronically Signed: David Roberts MD at 12:02 EST Tel , Service support ,
--- NOTE | 2019-10-17 11:31 | CT_ITS ---
STUDY: CT LUMBAR SPINE WITHOUT CONTRAST REASON FOR EXAM: Male, 79 years old. FALL, PAIN RADIATION DOSAGE (If Supplied By Facility): CTDIvol = ( 31.56 ) mGy, DLP = ( 1161.88 ) mGycm TECHNIQUE: The patient was scanned in a multi detector CT scanner. High resolution transaxial imaging was performed. Images were obtained from T12 to S1. Sagittal and coronal images were reconstructed. Individualized dose optimization techniques were used for this CT. COMPARISON: None FINDINGS: Normal lumbar lordosis. There is no substantial scoliosis. Normal vertebrae of the lumbar spine. L1-2: Moderate bilateral facet hypertrophy. No spinal stenosis or neural foraminal stenosis. L2-3: Moderate bilateral facet hypertrophy. Mild bilobed disc osteophyte complex produces mild spinal stenosis and mild bilateral neural foraminal stenosis. L3-4: Moderate bilateral facet hypertrophy. Mild broad disc osteophyte complex produces mild spinal stenosis and mild bilateral neural foraminal stenosis. L4-5: Status post discectomy, right laminectomy, transpedicular fixation with anatomic alignment and no spinal stenosis or neural foraminal stenosis. L5-S1: Status post discectomy, posterior decompression, and transpedicular fixation with anatomic alignment with no spinal stenosis or neural foraminal stenosis. Normal visualized paraspinous soft tissue structures. CT/Spine Lumbar without Contrast IMPRESSION: No acute fracture or subluxation Electronically Signed: David Roberts MD at 12:08 EST Tel , Service support ,
[2019-10-17 12:09] VITALS: BP 143/66; PULSE 75; RESP 16; O2SAT 97
--- NOTE | 2019-10-17 12:34 | ED.DCSUM_ITS ---
- ER Visit Summary Date of Service: 10/17/19 Chief Complaint: Fall History of Present Illness: The patient is a [address] Moreira and Dr. Mendez. He reports that 8:00 this morning he is lost his balance and fell landing on his buttocks. Reports he did hit his head. No loss of consciousness. However, he is on Coumadin. Reports he has neck pain is 9-10 in severity, low back pain is 10 on 10 severity, right hip pain is 9 at 10 in severity, and left hip pain that is 10 out of 10 in severity. Physical Examination: Vitals: Stable. Afebrile. Neck: Mild diffuse tenderness outpatient over the entire cervical spine. No point tenderness.. Full ROM without difficulty. Back: Moderate diffuse tenderness palpation of the entire lumbar spine and paraspinous musculature in the lumbar region bilaterally. Negative straight leg raise bilaterally. 5-5 dorsiflexion, plantarflexion, extensor hallucis longus bilaterally. Normal sensation to light touch throughout.. General: A&O x 3. NAD. Cardiovascular exam: Regular rate and rhythm, no murmur, rub or gallop. Respiratory exam: Chest nontender. No crepitus. Clear to auscultation bilaterally. No wheezes or stridor. Abdominal exam: Soft, nontender, nondistended, normal bowel sounds. No pain in RUQ or LUQ specifically. No peritoneal signs. Extremity: Moderate tenderness palpation over the left greater trochanter. No pain with internal or external rotation of his hip. No pain with range of motion. Test Results: INR is 1.2. Clinical Impression(s) from Imaging Studies Brain CT 10/17/19 10:01 IMPRESSION: Chronic involutional changes of the brain. Electronically Signed: Rai Scott, at 11:22 EST , Service support , Cervical Spine CT 10/17/19 10:01 IMPRESSION: Multilevel degenerative changes, as described above. Status post anterior fusion at the C5-C6 and C6-C7 levels. Electronically Signed: Rai Scott, at 11:25 EST , Service support , Lumbar Spine X-Ray 10/17/19 10:02 IMPRESSION: No acute fracture or subluxation Electronically Signed: David Roberts MD at 11:41 EST Tel , Service support , Hip/Pelvis X-Ray 10/17/19 11:20 IMPRESSION: Normal x-ray examination of the pelvis and hip. Electronically Signed: David Roberts MD at 12:02 EST Tel , Service support , Lumbar Spine CT 10/17/19 11:31 IMPRESSION: No acute fracture or subluxation Electronically Signed: David Roberts MD at 12:08 EST Tel , Service support , Emergency Department Course and Treatment: Patient was given a dose of morphine IV with minimal relief. Is then given a dose of Dilaudid IV and is resting more comfortably. Treatment Plan: The patient was discussed with Dr. Mendez. He would like me to increase his Murdock from 10 mg 3 times daily to 10 mg 4 times daily. He will see him in the office tomorrow for repeat exam. The patient is happy with this plan. Return to the emergency department for any worsening symptoms. Disposition: To home in improved and stable condition. Impression: 1. Fall. 2. Cervical strain. 3. Acute on chronic low back pain. This note was generated with [employer] software. It may contain incorrect words, spelling, and punctuation that were not noted in review of the chart prior to signing ED Disposition - Plan for ED Patient: Instructions: BACK PAIN (Acute or Chronic) Referrals: Reji Ross MD [STAFF PHYSICIAN] - 1 Day for another exam Additional Instructions: Increase your Murdock to 4 times a day.
[2019-10-17] MEDS: HYDROmorphone 1 MG/ML Syringe IV (12:43)
[2019-10-17 13:44] VITALS: BP 139/72; PULSE 79; RESP 18; O2SAT 93
== END 2019-10-17 14:07 | disposition home or self-care (01) ==
PROVIDERS: Emergency Provider Emergency Medicine; PCP Internal Medicine
DX: S16.1XXA Strain of muscle, fascia and tendon at neck level, initial encounter (principal); M54.5 Low back pain; G89.29 Other chronic pain; I10 Essential (primary) hypertension; Z86.73 Personal history of transient ischemic attack (TIA), and cerebral infarction without residual deficits; Z79.01 Long term (current) use of anticoagulants; W18.30XA Fall on same level, unspecified, initial encounter; Y93.89 Activity, other specified; Y92.89 Other specified places as the place of occurrence of the external cause; Y99.8 Other external cause status
CPT/HCPCS: 70450; 72100; 72125; 72131; 73502; 85610; 96372; 96374; 96375; 99285; A4216; J2405

== ENCOUNTER → 2020-01-24 | Outpatient (CLI) | payer MEDICARE, SELFPAY ==
[2020-01-24 17:28] LABS: Amphetamine Urine VISTA NEGATIVE (<1000 ng/mL); Barbiturate Urine VISTA NEGATIVE (< 200 ng/mL); Benzodiazepine Urine VISTA POSITIVE (< 200 ng/mL); Cocaine Urine VISTA NEGATIVE (< 300 ng/mL); Ecstacy Urine VISTA POSITIVE (< 500 ng/mL); Methadone Urine VISTA NEGATIVE (< 300 ng/mL); PCP Urine VISTA NEGATIVE (< 25 ng/mL); THC Urine VISTA NEGATIVE (< 50 ng/mL); Vista UDS pH Range 5
== END | disposition home or self-care (01) ==
LOC: LAB 15:34
PROVIDERS: PCP Internal Medicine; Referring Provider Anesthesiology Pain Medicine; Visit Provider Anesthesiology Pain Medicine
DX: F11.20 Opioid dependence, uncomplicated (principal)
CPT/HCPCS: 80307

== ENCOUNTER → 2020-02-28 | Outpatient (CLI) | payer MEDICARE, SELFPAY ==
--- NOTE | 2020-02-28 09:36 | ECHOD_ITS ---
Reason For Study: EVAL ALDO/CSA Procedure This was a 2D Doppler, Color Flow transthoracic echocardiogram. The study was technically difficult. Due to deep respirations. Exam performed in department. Left Ventricle Normal LV size. Left ventricular systolic function is normal. The estimated ejection fraction is 55 %. Normal diastology for age. No regional wall motion abnormalities noted. Right Ventricle Normal RV size. Normal systolic function. Atria Normal left atrium. Normal right atrium. Mitral Valve Normal mitral valve. Mild (1+) eccentric mitral valve insufficiency. Tricuspid Valve Normal tricuspid valve. Mild (1+) tricuspid valve insufficiency. Pulmonary artery systolic pressure is 34 mmHg. Aortic Valve Trisinus/trileaflet aortic valve. Mild focal aortic valve calcification. Mild (1+) eccentric aortic valve insufficiency. Pericardium/Pleural No pericardial effusion. MMode/2D Measurements & Calculations LVIDd: 4.7 cm IVSd: 0.93 cm Ao root diam: 3.5 cm LVIDs: 3.2 cm LVPWd: 1.1 cm RVDd: 3.4 cm FS: 32.8 % LAV(MOD-bp): 47.1 ml LA dimension(2D): 4.6 cm LA A4 area: 17.9 cm2 LAV(MOD-bp) Indexed: 20.9 ml/m2 LAV(MOD-sp2): 43.7 ml LAV(MOD-sp4): 47.3 ml RA A4 area: 17.0 cm2 Time Measurements MV dec time: 0.30 sec Doppler Measurements & Calculations MV E max ernie: 87.7 cm/sec Lat Peak E' Ernie: 10.6 cm/sec Med Peak E' Ernie: 6.3 cm/sec MV A max ernie: 97.2 cm/sec E/E' lat: 8.3 E/E' med: 14.0 MV E/A: 0.90 Ao V2 max: 222.1 cm/sec LV V1 max: 103.7 cm/sec PA V2 max: 112.3 cm/sec Ao max P.8 mmHg LV V1 max P.3 mmHg Ao V2 mean: 162.4 cm/sec LV V1 mean P.4 mmHg Ao mean P.5 mmHg LV V1 mean: 73.0 cm/sec Ao V2 VTI: 49.4 cm LV V1 VTI: 23.7 cm TR max ernie: 270.3 cm/sec TR max P.2 mmHg Interpretation Summary Normal LV size. Left ventricular systolic function is normal. The estimated ejection fraction is 55 %. Mild (1+) tricuspid valve insufficiency. Mild (1+) eccentric aortic valve insufficiency. Mild (1+) eccentric mitral valve insufficiency. Ordering Physician: Maxime Benitez Referring Physician: Josi Moreira Performed By: Oneil, Amanda, RDCS, RVT
== END | disposition home or self-care (01) ==
LOC: CVS 09:28
PROVIDERS: PCP Internal Medicine; Referring Provider Internal Medicine Pulmonary Disease; Visit Provider Internal Medicine Pulmonary Disease
DX: I25.10 Atherosclerotic heart disease of native coronary artery without angina pectoris (principal)
CPT/HCPCS: 93306

== ENCOUNTER → 2020-04-14 | Outpatient (CLI) | payer MEDICARE, SELFPAY ==
--- NOTE | 2020-04-14 13:44 | CT_ITS ---
STUDY: CT CHEST WITH CONTRAST REASON FOR EXAM: Male, 79 years old. Right vocal cord paralysis. RADIATION DOSAGE (If Supplied By Facility): CTDIvol = ( 16.26 ) mGy, DLP = ( 750.54 ) mGycm TECHNIQUE: Transaxial imaging was performed following intravenous administration of IV 100mL Isovue-300. Multiplanar coronal and sagittal images were reformatted. Individualized dose optimization techniques were used for this CT. COMPARISON: 2016 FINDINGS: Lung windows show the lungs to be normally expanded. There is no organized infiltrate or groundglass opacifications, dependent atelectasis noted in the lung bases. Soft tissue windows show a normal-appearing thyroid gland. No suspicious axillary, mediastinal, or perihilar mass or adenopathy. No pleural or pericardial effusions. Calcified coronary vessels noted Normal enhanced pulmonary arteries. Normal aorta arch and descending thoracic aorta. There are multi-level degenerative changes of the thoracic spine. There is no demonstrated abnormality of the visualized upper abdomen. CT/Chest WITH Contrast IMPRESSION: Chronic interstitial changes with dependent atelectasis. No organized infiltrate, groundglass opacifications or noncalcified mass or nodule Calcified coronary vessels No suspicious adenopathy Electronically Signed: Tab Villegas MD at 16:19 EDT , Service support ,
[2020-04-14 14:20] LABS: CREATININE FINGERSTICK 0.9 mg/dL (0.70-1.30); EGFR FINGERSTICK > 60.0000 mL/min (>60)
== END | disposition home or self-care (01) ==
LOC: CT 13:42
PROVIDERS: PCP Internal Medicine; Referring Provider Otolaryngology Otolaryngology/Facial Plastic Surgery; Visit Provider Otolaryngology Otolaryngology/Facial Plastic Surgery
DX: J38.01 Paralysis of vocal cords and larynx, unilateral (principal); R49.0 Dysphonia
CPT/HCPCS: 71260; Q9967

== ENCOUNTER → 2020-07-21 | Outpatient (CLI) | payer MEDICARE, SELFPAY | END | disposition home or self-care (01) | LOC: LABSPEC 12:49 | PROVIDERS: PCP Internal Medicine; Visit Provider Nurse Practitioner Adult Health | DX: N30.00 Acute cystitis without hematuria (principal) | CPT/HCPCS: 87086; 87088; 87186 ==

== ENCOUNTER → 2020-08-07 13:54 | Outpatient (CLI) | payer MEDICARE, SELFPAY ==
--- NOTE | 2020-08-07 14:00 | RAD_ITS ---
STUDY: X-RAY - CERVICAL SPINE REASON FOR EXAM: Male, 80 years old. NECK PAIN AND LEFT SHOULDER PAIN. FELL 2 MONTHS AGO. TECHNIQUE: 2 view(s) of the cervical spine were obtained. COMPARISON: CT cervical spine 12/22/2018 FINDINGS: Normal anterior atlantoaxial articulation. Normal odontoid process. Patient head is tilted forward. Fusion hardware of the lower cervical spine (beginning at C5) is incompletely imaged due to shoulder attenuation. Anterior spondylosis at C4-C5 is overall similar since prior CT. No subluxation. The soft tissue structures are unremarkable. RAD/Cerv Spine 2 or 3 Views IMPRESSION: Similar degenerative and operative hardware, limiting visualization of the lower cervical spine. Electronically Signed: Stanislaw Archer MD ([place]) at 9:38 EST , Service support ,
== END ==
PROVIDERS: PCP Internal Medicine; Visit Provider Anesthesiology Pain Medicine
DX: M54.2 Cervicalgia (principal)
CPT/HCPCS: 72040

== ENCOUNTER → 2020-08-21 11:22 | Outpatient (CLI) | payer MEDICARE, SELFPAY ==
[2020-08-21 12:22] LABS: PSA,Total- Diagnostic 0.65 ng/mL (0.0-4.0)
== END ==
PROVIDERS: PCP Internal Medicine; Referring Provider Nurse Practitioner Adult Health; Visit Provider Nurse Practitioner Adult Health
DX: R97.20 Elevated prostate specific antigen [PSA] (principal)
CPT/HCPCS: 36415; 84153

== ENCOUNTER 2020-09-18 21:02 | Inpatient (IN) | payer MEDICARE, SELFPAY ==
[2020-09-18 21:03] VITALS: BP 102/54; PULSE 78; RESP 20; TEMP 37; O2SAT 91; BMI 29.8
[2020-09-18 21:09] VITALS: BP 102/54; PULSE 75; RESP 20; TEMP 37; O2SAT 92
--- NOTE | 2020-09-18 21:22 | EKG12_ITS ---
Test Reason : WEAKNESS Blood Pressure : / mmHG Vent. Rate : 071 BPM Atrial Rate : 071 BPM P-R Int : 192 ms QRS Dur : 092 ms QT Int : 398 ms P-R-T Axes : 027 -28 068 degrees QTc Int : 432 ms Normal sinus rhythm Moderate voltage criteria for LVH, may be normal variant Borderline ECG Confirmed by TESHA THOMAS, JAYRO ([id number]), editor newspaper PEGGY BARRY ([id number]) on 09/23/2020 10:46:55 AM Referred By: ASHA NOE Confirmed By:JAYRO PARKINSON MD
--- NOTE | 2020-09-18 21:23 | CT_ITS ---
STUDY: CT BRAIN WITHOUT CONTRAST REASON FOR EXAM: Male, 80 years old. INCREASING WEAKNESS/SEVERAL FALLS OVER LAST WEEK, ON COUMADIN RADIATION DOSAGE (If Supplied By Facility): CTDIvol = ( 29.71 ) mGy, DLP = ( 560.09 ) mGycm TECHNIQUE: Transaxial CT imaging of the brain was performed without administration of intravenous contrast material. Individualized dose optimization techniques were used for this CT. COMPARISON: 10/17/2019 FINDINGS: Normal soft tissue structures. Normal calvarium. Prominent ventricles and extra-axial spaces with atrophy. Normal white matter tracts of the cerebral hemispheres. Normal basal ganglia and thalami. Normal brainstem. Normal cerebellum. There is no intracranial hemorrhage. There are no findings of an acute ischemic infarction. Normal visualized paranasal sinuses. CT/Brain/Head without Contrast IMPRESSION: Age-related changes of the brain. Electronically Signed: Adam Martinez DO at 22:38 EST Tel [phone], Service support ,
--- NOTE | 2020-09-18 21:24 | CT_ITS ---
STUDY: CT CERVICAL SPINE WITHOUT CONTRAST REASON FOR EXAM: Male, 80 years old. INCREASING WEAKNESS/SEVERAL FALLS OVER LAST WEEK RADIATION DOSAGE (If Supplied By Facility): CTDIvol = ( 27.11 ) mGy, DLP = ( 512.53 ) mGycm TECHNIQUE: High resolution transaxial imaging was performed without contrast material. Sagittal and coronal images were reconstructed. Individualized dose optimization techniques were used for this CT. COMPARISON: None FINDINGS: Normal craniovertebral junction. Normal anterior atlantoaxial articulation. Normal odontoid process. Normal cervical lordosis. C2-3: Normal endplates. Normal disc height and morphology. Normal central canal and intervertebral neuroforamina. C3-4: Normal endplates. Normal disc height and morphology. Normal central canal. Degenerative facet hypertrophy narrowing the intervertebral neuroforamina, left more than right. C4-5: Normal endplates. Normal disc height and morphology. Normal central canal. Degenerative facet hypertrophy narrowing the intervertebral neuroforamina. C5-6: Status post surgical fusion. Normal central canal and intervertebral neuroforamina. C6-7: Status post surgical fusion. Normal central canal and intervertebral neuroforamina. C7-T1: Normal endplates. Normal disc height and morphology. Normal central canal and intervertebral neuroforamina. Normal visualized soft tissue structures. CT/Spine Cervical without Contras IMPRESSION: Degenerative and postsurgical changes as noted of the cervical spine. Electronically Signed: Adam Martinez DO at 23:40 EST Tel [phone], Service support ,
[2020-09-18 21:41] LABS: Absolute Lymphocyte Count 0.74 X10^3/uL (0.83-4.51); Absolute Neutrophil Count 10.8 X10^3/uL (2.0-7.7); Basophil# 0.02 X10^3/uL; Basophil% 0.2 % (0-1); Eosinophil# 0.02 X10^3/uL; Eosinophils% 0.2 % (0-5); Hematocrit 35.8 % (40-54); Hemoglobin 12.1 g/dL (13.0-16.5); Lymphocyte # 0.74 X10^3/ul (4.0); Lymphocyte % 5.9 % (19-41); Mean Corp Hgb Conc 33.8 g/dL (32-36); Mean Corpuscular Hgb 34.2 pg (27.0-32.0); Mean Corpuscular Volume 101.1 fL (80-94); Mean Platelet Vol. 10.7 fl (6.2-12.0); Monocyte# 0.97 X10^3/uL; Monocyte% 7.7 % (0-10); NRBC Flagged by Analyzer 0 % (0-5); Neutrophil # 10.79 X10^3/uL (2.7-7.7); Neutrophil % 85.2 % (47-70); Platelet Count 150 K/mm3 (150-450); RBC Distribution Width SD 48.4 fl (35.1-43.9); Red Blood Count 3.54 M/mm3 (4.6-6.2); White Blood Count 12.6 K/mm3 (4.4-11.0)
--- NOTE | 2020-09-18 22:20 | ED.DCSUM_ITS ---
- ER Visit Summary Date of Service: 09/18/20 Chief Complaint: Weakness History of Present Illness: The patient is a [address] Moreira and Dr. Mane. He reports he has generalized weakness has been gradually getting worse over the past 2 months. States that today at 515 he fell while trying to get o ut of bed. He denies any blow to the head or loss of consciousness. He is on Plavix but no other anticoagulants. He reports she has neck and diffuse back pain 7-10 severity. He denies any shoulder, wrist, or hip pain. Review of systems patient does complain of dysuria. He denies any fever, chills, sore throat, cough, chest pain, shortness of breath or any other complaints. Physical Examination: Vitals: Stable. Afebrile. General: Well-nourished and well-developed. Head: Normocephalic atraumatic. Neck: Supple, no lymphadenopathy. No JVD. Mild diffuse social patient with entire C-spine and paraspinous muscular. He has no point tenderness. Cardiovascular: Regular rate and rhythm. No murmurs. Respiratory: No respiratory distress. Clear to auscultation bilaterally. Abdominal: Soft, nontender, nondistended, normal bowel sounds. No guarding, rebound, or peritoneal signs. Back: Mild diffuse tenderness palpation over his entire thoracic and lumbar spine. Again no point tenderness. Extremities: Nontender, no edema. Skin: Normal color, no rash. Neurologic: Alert and oriented ?3. Cranial nerves II through XII are intact. Normal strength and sensation. Psych: Normal affect. Test Results: EKG is sinus at [address] changes. Is unchanged from November 2017. CBC shows a white count of 12.6 with 85 segmented neutrophils and 6 lymphocytes. H&H is 12.1 and 35.8. UA shows leukocytes, nitrites, blood, and 5-10 white blood cells. Troponin is negative. Chem-7 shows a sodium 134 and potassium of 5.2 (moderate hemolysis). Clinical Impression(s) from Imaging Studies Brain CT 09/18/20 21:23 IMPRESSION: Age-related changes of the brain. Electronically Signed: Adam Martinez DO at 22:38 EST Tel [phone], Service support , Cervical Spine CT 09/18/20 21:24 IMPRESSION: Degenerative and postsurgical changes as noted of the cervical spine. Electronically Signed: Adam Martinez DO at 23:40 EST Tel [phone], Service support , On my read the chest x-ray shows no acute disease. LS spine x-ray shows chronic changes. Thoracic spine x-rays show hardware to be intact and kyphoplasty as well as chronic changes. No acute disease. Emergency Department Course and Treatment: Patient had an IV placed. Is given a 500 cc bolus of normal saline. He refused pain and nausea medications. He is resting comfortably. Patient was given a dose of Rocephin IV. Treatment Plan: Patient will be discussed with Dr. Blount and admitted for further evaluation and treatment. Disposition: Admitted in stable condition. Impression: 1. Generalized weakness. 2. UTI. 3. Fall. This note was generated with [employer]ation software. It may contain incorrect words, spelling, and punctuation that were not noted in review of the chart prior to signing ED Disposition - Plan for ED Patient: Referrals: Josi Moreira DO [Primary Care Provider] -
[2020-09-18 22:25] LABS: ALB/GLOB Ratio 0.8 RATIO (0.9-2.4); AST(SGOT) 39 U/L (15-37); Alanine Aminotransfer ALT/SGPT 22 U/L (16-61); Albumin, Serum 3.4 g/dL (3.2-5.0); Alkaline Phosphatase 91 U/L (45-117); Anion Gap 4 (5-15); BUN 16 mg/dL (7-18); BUN/Creat Ratio 14.4 RATIO (10-20); Calcium,Total 8.6 mg/dL (8.5-10.1); Chloride 106 mmol/L (98-107); Creatinine, Serum 1.11 mg/dL (0.70-1.30); EST Glomerular Filtration Rate 68 mL/min (>60); Est Glom Filt Rate - Afr Amer 82 mL/min (>60); Estimated Creatinine Clearance 58.42 ml/min; Globulin 4.3 g/dL (2.2-4.2); Glucose 104 mg/dL (74-106); Potassium 5.2 mmol/L (3.5-5.1); Protein, Total 7.7 g/dL (6.4-8.2); Sodium Level 134 mmol/L (136-145)
--- NOTE | 2020-09-18 22:25 | RAD_ITS ---
STUDY: X-RAY - LUMBAR SPINE REASON FOR EXAM: Male, 80 years old. Multiple falls, back pain. TECHNIQUE: 3 view(s) of the lumbar spine were obtained. COMPARISON: 10/17/2019 FINDINGS: Normal lumbar lordosis. There is no substantial scoliosis. There is a normal alignment of the vertebrae. Status post pedicular screw at L4-5 S1 right, L4-5 left, disc spacer placement at L4-5, 5 S1. Multiple bridging anterior osteophytes. Disc space narrowing L5-S1. Grade 1 anterolisthesis L5 on S1 not excluded due to limited visualization. There is facet arthropathy. Neural foraminal narrowing lower lumbar spine is not excluded. There is demineralization of osseous structures. There is atherosclerotic calcification of the abdominal aorta without a demonstrated aneurysm. RAD/Lumbar Spine 2 or 3 Views IMPRESSION: No compression injury or traumatic malalignment. There is similar appearance compared to previous exam. Postsurgical changes, degenerative changes, osteopenia and atherosclerosis as above. Electronically Signed: Jazmin Walls MD at 0:47 EST , Service support ,
--- NOTE | 2020-09-18 22:25 | RAD_ITS ---
STUDY: X-RAY CHEST REASON FOR EXAM: Male, 80 years old. Weakness, recent multiple falls. TECHNIQUE: Single AP portable view of the chest. COMPARISON: 02/21/2017 FINDINGS: There are superimposed monitor leads. There is no demonstrated pneumothorax. There are areas of hyperinflation. Stable blunting right costophrenic angle. Normal size heart. Normal mediastinum and angie. Normal visualized pulmonary arteries. There is atherosclerotic calcification of the aortic arch with tortuosity. There is demineralization of the osseous structures. There are at least 3 areas of prior vertebroplasty. There is degenerative osteoarthritis of the bilateral shoulders. There is no demonstrated abnormality of the visualized soft tissue structures of the upper abdomen. RAD/Chest 1 View (Portable) IMPRESSION: Component of COPD suspected. There is no demonstrated pneumothorax. No pulmonary edema, congestive heart failure or confluent pneumonia. Other nonacute findings as outlined above. Electronically Signed: Jazmin Walls MD at 0:49 EST , Service support ,
--- NOTE | 2020-09-18 22:25 | RAD_ITS ---
STUDY: X-RAY - THORACIC SPINE REASON FOR EXAM: Male, 80 years old. Multiple falls, back pain. TECHNIQUE: 4 view(s) of the thoracic spine were obtained. COMPARISON: CT chest 06/2020 FINDINGS: There is an increase in the normal thoracic kyphosis. Prior vertebroplasty T10, T9 and T7. Minimal calcification anterior longitudinal ligament. There is no substantial scoliosis. There is demineralization of the thoracic spine with endplate spondylosis. There is multilevel disc space narrowing of the thoracic spine. The soft tissue structures are unremarkable. Prior lower cervical fusion. RAD/Thoracic Spine 3 Views IMPRESSION: Osteoporosis, degenerative changes, postsurgical changes appear stable. New compression injury or traumatic malalignment detected. Electronically Signed: Jazmin Walls MD at 0:52 EST , Service support ,
[2020-09-18 23:44] LABS: Mucous, Urine 0 SEEN /hpf (<or=2+); Squamous Epithelial Cells - UA 0 SEEN /hpf (0-5)
[2020-09-18 23:46] VITALS: PULSE 69; RESP 18; O2SAT 95
[2020-09-18 23:48] LABS: Color, Urine Yellow (Yellow); Glucose, Dipstick Normal (Normal); Ketone-Dipstick Negative (Negative); Leukocyte Esterase-Dipstick 500 /ul (Negative); Nitrite-Dipstick Positive (Negative); Occult Blood-Urine 25 /ul (Negative); Protein-Dipstick 15 mg/dl (Negative); Urine Bilirubin Dipstick Negative (Negative); Urine Clarity Clear (Clear); Urine Urobilinogen Normal (Normal)
[2020-09-18 23:53] LABS: Bacteria 1+ /hpf (None Seen); Red Blood Cells-Urine 0-5 SEEN /hpf (0-5); White Blood Cells 5-10 SEEN /hpf (0-5)
[2020-09-19] VITALS (11 sets, daily range): BP systolic 120–148; BP diastolic 59–83; PULSE 62–72; RESP 13–18; TEMP 36.3–37.1; O2SAT 92–97; BMI 29.0; BMI 29.5
[2020-09-19] MEDS: Ceftriaxone 1 GM/50 ML BAG IV ×2 (01:16→21:30)
--- NOTE | 2020-09-19 02:24 | PCM.HP.STD ---
Problem List (1) Atherosclerotic heart disease of [place] coronary artery with other forms of angina pectoris Status: Chronic Comment: UCJ-APT-Wdkjr w/ 3.0 x 12 mm Xience Xpedition Stent and YZZ-Xjyo-Sni RCA w/ 2.75 x 38 mm Xience Xpedition Stent 01/2014 (2) History of coronary artery stent placement Status: Chronic Comment: BJS-FJZ-Jfoxc w/ 3.0 x 12 mm Xience Xpedition Stent and XEM-Hhzn-Keu RCA w/ 2.75 x 38 mm Xience Xpedition Stent 01/2014 (3) Essential (primary) hypertension Status: Chronic (4) Hyperlipidemia Status: Chronic Qualifiers: (5) Physical debility Status: Acute (6) Cystitis Status: Acute History of Present Illness Date of Admission: 09/18/20 Chief Complaint: weakness The patient is a 80 year old M with a significant history of physical debility; CAD status post stent; chronic pain; depression; hyperlipidemia; sleep apnea on home CPAP; and hypertension who presents to the emergency department with a fall. Reportedly patient fell while trying to get up from his bed. His fall occurred on the same day of presentation. He fell because he was too weak. He reported that he has had weakness for several months. Associated with symptoms is chills and dysuria. Also he has poor appetite. Past Medical History Past Medical History (Chronic Problems): Chronic Problems (Last Reviewed 09/19/20 @ 02:[address] Elmo Blount MD) Atherosclerotic heart disease of [place] coronary artery with other forms of angina pectoris (Chronic) ROI-DJG-Gxsju w/ 3.0 x 12 mm Xience Xpedition Stent and FMK-Tksx-Igb RCA w/ 2.75 x 38 mm Xience Xpedition Stent 01/2014 History of coronary artery stent placement (Chronic 02/12/14) JJD-IJF-Flcya w/ 3.0 x 12 mm Xience Xpedition Stent and RTE-Ngql-Wnw RCA w/ 2.75 x 38 mm Xience Xpedition Stent 01/2014 Essential (primary) hypertension (Chronic) Hyperlipidemia (Chronic) Medical History: Medical History (Last Reviewed 09/19/20 @ 06:[address] Elmo Blount MD) Atherosclerotic heart disease of [place] coronary artery with other forms of angina pectoris (Chronic) I25.118 IYV-XOW-Gllsm w/ 3.0 x 12 mm Xience Xpedition Stent and RBO-Kwpl-Iuw RCA w/ 2.75 x 38 mm Xience Xpedition Stent 01/2014 Essential (primary) hypertension (Chronic) I10 Hyperlipidemia (Chronic) E78.5 Physical debility (Acute) R53.81 Ataxia R27.0 Chronic pain G89.29 DDD (degenerative disc disease), cervical M50.30 DDD (degenerative disc disease), lumbar M51.36 Depression F32.9 Obstructive sleep apnea G47.33 Orthostatic hypotension (Resolved) I95.1 Pain (Inactive) R52 Allergies codeine Allergy (Verified 09/18/20 21:03) Unknown Home Medications: Ambulatory Orders Medication Instructions Recorded Pravastatin [Pravachol] 40 mg PO QHS 02/05/14 Aspirin E.C. [Ecotrin] 81 mg PO DAILY@0800 02/06/14 Multivitamins,Therapeutic 1 tab PO DAILYCM #20 tab 02/07/14 [Multivitamin] Clopidogrel Bisulfate [Plavix] 75 mg PO DAILY #30 tab 02/27/14 Omeprazole [Prilosec] 40 mg PO DAILY 05/13/14 docusate sodium 100 mg capsule 100 mg PO BID cap 01/30/19 gabapentin 300 mg capsule 300 mg PO DAILY 01/30/19 hydrocodone 7.5 mg-acetaminophen 1 tab PO BID PRN tab 01/30/19 300 mg tablet sertraline 100 mg tablet 2 tab PO QHS tab 01/30/19 trazodone 100 mg tablet 100 mg PO QHS tab 09/06/19 isosorbide mononitrate 30 mg 30 mg PO QAM #30 tab 03/04/20 tablet,extended release 24 hr nitroglycerin 0.4 mg sublingual 0.4 mg SUBLINGUAL Q5M PRN #25 tab 03/04/20 tablet Surgical History: Surgical History (Last Reviewed 09/19/20 @ 06:[address] Elmo Blount MD) History of coronary artery stent placement (Chronic) Onset Date: 02/12/14 Z95.5 YDT-SGL-Fxzmh w/ 3.0 x 12 mm Xience Xpedition Stent and TYH-Tyhy-Tbw RCA w/ 2.75 x 38 mm Xience Xpedition Stent 01/2014 History of appendectomy Z90.49 History of back surgery Z98.890 History of kyphoplasty Z98.890 History of left heart catheterization Onset Date: 05/13/14 Z98.890 Hx of cholecystectomy Z90.49 S/P tendon repair Z98.890 RUE tendon repair Surgical History: appendectomy, cholecystectomy, - - Back surgery kyphoplasty, cervical and lumbar spine surgery, arm surgery Psychiatric History: Anxiety, Depression Smoking Status: Former smoker Review of Systems Constitutional: Reports: Anorexia, Chills, Weakness. Denies: Fever, Weight Change HEENT: Denies: Head Aches, Sinus Congestion, Sinus Drainage Cardiovascular: Denies: Chest Pain, Palpitations Respiratory: Denies: Cough, Shortness of breath at rest, Sputum production Gastrointestinal: Denies: Abdominal Pain, Nausea, Vomiting Genitourinary: Reports: Dysuria Musculoskeletal: Denies: Joint Pain, Joint Tenderness Skin: Denies: Rash, Wounds Neurological: Denies: Numbness, Tingling, Focal weakness Psychiatric: Denies: Anxiety, Depression, Homicidal Ideations, Suicidal Ideations Hematologic/ Lymphatic: Denies: Easy Bruising, Easy Bleeding VTE Information - Inpt Only VTE Present on Admission: No VTE Mechan Device Prophylaxis: None VTE Pharm Prophylaxis ordered?: Yes Patient Problems: Active and Suspected Problems (Last Reviewed 09/19/20 @ 02:[address] Elmo Blount MD) Cystitis (Acute) Physical debility (Acute) - Physical Exam Vitals/I&O's: Vital Signs Temp Pulse Resp BP Pulse Ox 97.3 F L 69 16 128/72 H 95 09/19/20 02:21 09/19/20 02:21 09/19/20 02:21 09/19/20 02:21 09/19/20 02:21 Oxygen Delivery Method Room Air Weight: 97.1 kg Body Mass Index (BMI) 29.8 Intake and Output for Last 24 Hours 09/17/20 09/18/20 09/19/20 23:59 23:59 23:59 Intake Total 550 / 550 Balance 550 / 550 General: Alert, Oriented x3, Cooperative HEENT: Atraumatic, PERRLA, EOMI, Normocephalic Neck: Supple, No JVD, Negative Carotid Bruits Lungs: Clear to auscultation, Normal air movement Cardiovascular: Regular rate, Regular Rhythm, Normal S1, Normal S2, No murmurs Abdomen: Bowel Sounds Present, Soft, Non Tender Extremities: No edema, Capillary Refill Less than 3 Seconds Skin: No rashes, No breakdown Musculoskeletal: Tenderness - Multiple spinous processes. Neurological: Cranial nerves II-XII grossly intact Psych/Mental Status: Normal Affect, Appropriate Microbiology Past 72 Hours 09/18/20 21:46 Mucosa - Nose SARS-CoV-2 Antigen (Rapid) - Final Laboratory Results 09/18/20 21:10: WBC 12.6 H, RBC 3.54 L, Hgb 12.1 L, Hct 35.8 L, MCV 101.1 H, MCH 34.2 H, MCHC 33.8, RDW Std Deviation 48.4 H, RDW Coeff of [place] 13.0, Plt Count 150, MPV 10.7, Immature Gran % (Auto) 0.800, Neut % (Auto) 85.2 H, Lymph % (Auto) 5.9 L, [place] % (Auto) 7.7, Eos % (Auto) 0.2, Baso % (Auto) 0.2, Absolute Neuts (auto) 10.8 H, Absolute Lymphs (auto) 0.74 L, Nucleated RBC % 0 09/18/20 21:10: Sodium 134 L, Potassium 5.2 H, Chloride 106, Carbon Dioxide 24.0, Anion Gap 4 L, BUN 16, Creatinine 1.11, Estim Creat Clear Calc 58.42, Est GFR (MDRD) Af Amer 82, Est GFR (MDRD) Non-Af 68, BUN/Creatinine Ratio 14.4, Glucose 104, Calcium 8.6, Total Bilirubin 1.10 H, AST 39 H, ALT 22, Alkaline Phosphatase 91, Troponin I < 0.015, Total Protein 7.7, Albumin 3.4, Globulin 4.3 H, Albumin/Globulin Ratio 0.8 L 09/18/20 23:35: Urine Color Yellow, Urine Clarity Clear, Urine pH 5.0, Ur Specific [place] 1.020, Urine Protein 15 H, Urine Glucose (UA) Normal, Urine Ketones Negative, Urine Occult Blood 25 H, Urine Nitrite Positive H, Urine Bilirubin Negative, Urine Urobilinogen Normal, Ur Leukocyte Esterase 500 H, Urine RBC 0-5 SEEN, Urine WBC 5-10 SEEN, Ur Squamous Epith Cells 0 SEEN, Urine Bacteria 1+, Urine Mucus 0 SEEN Assessment/Plan All Active Problems (Last Reviewed 09/19/20 @ 02:[address] Elmo Blount MD) Cystitis (Acute) Physical debility (Acute) Chest pain (Resolved) Left-sided chest wall pain (Resolved) Orthostatic hypotension (Resolved) The patient is a 80 year old M with a significant history of physical debility; CAD status post stent; chronic pain; depression; hyperlipidemia; obstructive sleep apnea on home CPAP; and hypertension who presents to the emergency department with weakness; fall; and dysuria and found to have abnormal urinalysis. Acute complicated cystitis Review of emergency department labs showed positive nitrite; urine occult blood; elevated urine leukocyte esterase; 1+ urine bacteria and with no urine squamous epithelial cells. Review of old records show that urine culture on 07/21/2020 was positive for presumptive E. coli. The bacteria was pansensitive to many antibiotics except ampicillin and Unasyn. Started on ceftriaxone at the emergency department. Ceftriaxone continued. Urine culture was obtained at the emergency department; follow. Acute on chronic debility with fall PT and OT to work with patient. Case management consult for disposition. Check vitamin D level Thoracic spine x-ray cervical lumbar spine x-ray cervical cervical spine CT; brain CT did not show any acute pathology. Continue home pain medication. Of note patient has a history of labile blood pressure. With his age weakness and fall cannot rule out Parkinson disease at this time. CAD status post stents Stable with no chest pain. Aspirin and Plavix continued Imdur continued Pravastatin continued Elevated liver biochemistry Patient with elevated bilirubin and elevated AST. Different diagnosis include Gilbert syndrome; hemolysis; drugs effects or other. Trend CMP. Obstructive sleep apnea On home CPAP. CPAP ordered. Chronic pain On [place]. Gabapentin continued. DVT prophylaxis Subcutaneous Lovenox ordered. Inpatient E&M: 00411 Init Hosp L3
[2020-09-19] MEDS: HYDROcodone Bitartrate/Apap 5/325 Tablet PO (03:13)
--- NOTE | 2020-09-19 03:13 | CPS ---
PT refusing PAP at this time. RN aware.
--- NOTE | 2020-09-19 03:29 | PCS.PANDOC ---
PANDEMIC DOCUMENTATION INITIATED: Date: 09/19/20 Time: 2924
[2020-09-19 06:41] LABS: Absolute Lymphocyte Count 1.19 X10^3/uL (0.83-4.51); Basophil# 0.03 X10^3/uL; Basophil% 0.3 % (0-1); Hemoglobin 11.2 g/dL (13.0-16.5); Lymphocyte # 1.19 X10^3/ul (4.0); Lymphocyte % 11.7 % (19-41); Mean Corp Hgb Conc 32.9 g/dL (32-36); Mean Corpuscular Hgb 33.3 pg (27.0-32.0); Mean Corpuscular Volume 101.2 fL (80-94); Mean Platelet Vol. 10.7 fl (6.2-12.0); Monocyte# 0.76 X10^3/uL; Monocyte% 7.5 % (0-10); NRBC Flagged by Analyzer 0 % (0-5); Neutrophil # 8.01 X10^3/uL (2.7-7.7); Neutrophil % 78.8 % (47-70); Platelet Count 115 K/mm3 (150-450); RBC Distribution Width CV 13.2 % (11.6-14.6); RBC Distribution Width SD 48.7 fl (35.1-43.9); Red Blood Count 3.36 M/mm3 (4.6-6.2); White Blood Count 10.2 K/mm3 (4.4-11.0)
[2020-09-19 07:09] LABS: ALB/GLOB Ratio 0.9 RATIO (0.9-2.4); AST(SGOT) 14 U/L (15-37); Alanine Aminotransfer ALT/SGPT 18 U/L (16-61); Albumin, Serum 3.1 g/dL (3.2-5.0); Alkaline Phosphatase 86 U/L (45-117); Anion Gap 5 (5-15); BUN 14 mg/dL (7-18); BUN/Creat Ratio 15.2 RATIO (10-20); Calcium,Total 8.4 mg/dL (8.5-10.1); Chloride 109 mmol/L (98-107); Creatinine, Serum 0.92 mg/dL (0.70-1.30); EST Glomerular Filtration Rate 84 mL/min (>60); Est Glom Filt Rate - Afr Amer 102 mL/min (>60); Estimated Creatinine Clearance 70.48 ml/min; Globulin 3.6 g/dL (2.2-4.2); Glucose 97 mg/dL (74-106); Potassium 3.7 mmol/L (3.5-5.1); Protein, Total 6.7 g/dL (6.4-8.2); Sodium Level 140 mmol/L (136-145)
[2020-09-19 08:11] LABS: Vitamin D,25 Hydroxy 40.6 ng/mL
[2020-09-19] MEDS: Isosorbide Mononitrate 30 MG Tablet PO (09:33)
[2020-09-19] MEDS: Aspirin E.C. 81 MG Tablet PO (09:33)
[2020-09-19] MEDS: Docusate Sodium 100 MG Capsule PO ×2 (09:33→21:34)
[2020-09-19] MEDS: Pantoprazole Sodium 40 MG Tablet PO (09:33)
[2020-09-19] MEDS: Enoxaparin 40 MG/0.4 ML Syringe SC (09:33)
[2020-09-19] MEDS: Gabapentin 300 MG Capsule PO (09:34)
[2020-09-19] MEDS: Multivitamins,Therapeutic Tablet 1 TABLET PO (09:34)
[2020-09-19] MEDS: Clopidogrel Bisulfate 75 MG Tablet PO (09:34)
--- NOTE | 2020-09-19 15:37 | CASEMGMT ---
SW spoke w/CM, pt and pt's in agreement that pt would benefit from going somewhere for rehab after this hospitalization. Pt and informed CM that they would prefer TCU. SW spoke w/pt and , provided a list of [facility] facilities [facility] with the star ratings. Pt and confirm they would like TCU at discharge. SW called TCU, they will have a bed for pt on the weekend. Pt's insurance is waiving precerts so pt will not need to stay here waiting for precert. SW let pt and know that TCU will have a bed for pt on the weekend. Both in agreement with plan. SW also let physician know. Green sheet is on the chart in anticipation of weekend discharge. MARIA D Keita
[2020-09-19] MEDS: 0.9% Saline Lock 10 ML Syringe IV (21:29)
[2020-09-19] MEDS: traZODone 100 MG Tablet PO (21:34)
[2020-09-19] MEDS: Pravastatin 40 MG Tablet PO (21:59)
[2020-09-19] MEDS: Sertraline 100 MG Tablet 200 MG PO (21:59)
[2020-09-20 02:12] VITALS: BP 135/84; PULSE 68; RESP 16; TEMP 36.3; O2SAT 95
--- NOTE | 2020-09-20 08:08 | PCM.TXEXTCAR ---
- Diet 09/19/20 02:39 Diet: Regular - General Food consistency:: Regular Liquid Consistency:: Regular/Thin - Routine Orders/Code Status Code Status: Full Code - Suggestions for Active Care Change Position every (hours): 3 Hours to sit in a chair: 2 Times a day to sit in chair: 3 - Therapies Weight Bearing: Weight bearing as tolerated Physical Therapy: Eval and Treat Occupational Therapy: Eval and Treat - Allergies/Procedures Done in Hospital Allergies/Adverse Reactions: Allergies codeine Allergy (Verified 09/18/20 21:03) Unknown - Type of Care/Length of Stay Estimated LOS: Convalescent Care Less Than 30 days Type of Care Needed: Skilled Rehab Potential: Fair Prognosis: Fair - Additional Orders/Day of Discharge H&P will serve as current which was dated: 09/20/20 Day of Discharge: 09/20/20 - Dietary and Speech Recommendations Dietitian Recommendations/Changes: Will continue current diet as ordered - pt does not want a therapeutic diet while in the hospital - Follow Up Care Primary Care Physician: Josi Moreira DO [Primary Care Provider] - Please follow up with your Primary Care Physician in: 1-2 weeks.
[2020-09-20] MEDS: Gabapentin 300 MG Capsule PO (08:21)
[2020-09-20] MEDS: Aspirin E.C. 81 MG Tablet PO (08:21)
[2020-09-20] MEDS: Multivitamins,Therapeutic Tablet 1 TABLET PO (08:21)
[2020-09-20 08:22] VITALS: BP 127/85; PULSE 72; RESP 18; TEMP 36.7; O2SAT 98
[2020-09-20] MEDS: HYDROcodone Bitartrate/Apap 5/325 Tablet PO (08:33)
--- NOTE | 2020-09-20 09:28 | DS.PCM_ITS ---
Discharge Date and Diagnosis - Problem List Patient Problems: Active and Suspected Problems (Last Reviewed 09/19/20 @ 06:[address] Elmo Blount MD) Cystitis (Acute) Physical debility (Acute) Date of Admission: 09/18/20 Date of Discharge: 09/20/20 - Primary Discharge Diagnosis Acute Problems: Active Problems (Last Reviewed 09/19/20 @ 06:[address] Elmo Blount MD) #1 acute cystitis, urine culture is pending at the time of discharge. #2 physical debility/functional decline, requiring placement to SNF. - Secondary Discharge Diagnosis Chronic Problems: Chronic Problems (Last Reviewed 09/19/20 @ 06:[address] Elmo Blount MD) Atherosclerotic heart disease of [place] coronary artery with other forms of angina pectoris (Chronic) YOX-CNG-Lhfce w/ 3.0 x 12 mm Xience Xpedition Stent and VPZ-Bvyl-Uul RCA w/ 2.75 x 38 mm Xience Xpedition Stent 01/2014 History of coronary artery stent placement (Chronic 02/12/14) NRO-GPN-Vwkft w/ 3.0 x 12 mm Xience Xpedition Stent and QTK-Fezj-Dhj RCA w/ 2.75 x 38 mm Xience Xpedition Stent 01/2014 Essential (primary) hypertension (Chronic) Hyperlipidemia (Chronic) Hospital Course and Treatment Imaging Results: Clinical Impression(s) from Imaging Studies Brain CT 09/18/20 21:23 IMPRESSION: Age-related changes of the brain. Electronically Signed: Adam Martinez DO at 22:38 EST Tel [phone], Service support , Cervical Spine CT 09/18/20 21:24 IMPRESSION: Degenerative and postsurgical changes as noted of the cervical spine. Electronically Signed: Adam Martinez DO at 23:40 EST Tel [phone], Service support , Chest X-Ray 09/18/20 22:25 IMPRESSION: Component of COPD suspected. There is no demonstrated pneumothorax. No pulmonary edema, congestive heart failure or confluent pneumonia. Other nonacute findings as outlined above. Electronically Signed: Jazmin Walls MD at 0:49 EST , Service support , Lumbar Spine X-Ray 09/18/20 22:25 IMPRESSION: No compression injury or traumatic malalignment. There is similar appearance compared to previous exam. Postsurgical changes, degenerative changes, osteopenia and atherosclerosis as above. Electronically Signed: Jazmin Walls MD at 0:47 EST , Service support , Thoracic Spine X-Ray 09/18/20 22:25 IMPRESSION: Osteoporosis, degenerative changes, postsurgical changes appear stable. New compression injury or traumatic malalignment detected. Electronically Signed: Jazmin Walls MD at 0:52 EST , Service support , ADDENDUM: 09/19/20 0323 IMPRESSION: Osteoporosis, degenerative changes, postsurgical changes appear stable. NO compression injury or traumatic malalignment detected. Electronically Signed: Jazmin Walls MD at 3:16 EST , Service support , Operations: None Procedures: None Summary of Care Provided: Patient seen and examined on the day of discharge and appeared to be stable to discharge to SNF. He denied any complaints. His vital signs are stable, afebrile. The patient is a 80 year old M presented to the emergency room because of weakness and fall. He was found to have acute cystitis. He had extensive imaging to rule out traumatic fractures. CT scan brain showed no acute findings. CT scan cervical spine showed no acute fractures or dislocations. X- ray of the thoracic and lumbar spine showed no acute fractures or dislocations as well. Routine blood work was remarkable for mild hyperkalemia and mild leukocytosis. Urinalysis revealed cloudy urine, positive for nitrite and leukocyte esterase, there was 5-10 WBCs and 1+ bacteria. Chest x-ray showed no acute findings. COVID-19 antigen came back negative. Patient was treated with IV Rocephin for acute cystitis as well as gentle IV fluids for hydration. He remained afebrile throughout admission, WBC is back to normal. Vital signs remained stable. Urine culture sent and it was pending at the time of discharge. Patient was evaluated by PT OT and he was appropriate for placement to group home facility. Patient discharged to TCU in a stable condition, discharged on ciprofloxacin 500 mg p.o. twice daily for 5 days of treatment, continued on his previous home medications without any changes, recommended follow-up with PCP in 1-2 week. Patient Problems: Active and Suspected Problems (Last Reviewed 09/19/20 @ 06:[address] Elmo Blount MD) Cystitis (Acute) Physical debility (Acute) - Physical Exam Vitals/I&O's: Vital Signs Temp Pulse Resp BP Pulse Ox 98.0 F 72 18 127/85 H 98 09/20/20 08:22 09/20/20 08:22 09/20/20 08:22 09/20/20 08:22 09/20/20 08:22 Oxygen Delivery Method Room Air Weight: 212 lb Body Mass Index (BMI) 29.5 Intake and Output for Last 24 Hours 09/18/20 09/19/20 09/20/20 23:59 23:59 23:59 Intake Total 1400.25 / 1400.25 64 / 64 Output Total 1125 / 1125 400 / 400 Balance 275.25 / 275.25 -336 / -336 General: Alert, Oriented x3, Cooperative, No apparent distress HEENT: Atraumatic, PERRLA, EOMI, Normocephalic Oral: Moist Mucosa, No Gingival or Mucosal Lesions/ Ulcerations Neck: Supple, No JVD, Negative Carotid Bruits, Trachea Midline, Thyroid Normal Size and Texture Lungs: Clear to auscultation, Normal air movement, No rhonchi, No wheeze, No rales Cardiovascular: Regular rate, Regular Rhythm, Normal S1, Normal S2, PMI Normal Abdomen: Bowel Sounds Present, Soft, Non Tender, Non-Distended, No Hepato- splenomegaly Extremities: No clubbing, No cyanosis, Edema Skin: No rashes, No breakdown Lymphatic: No Cervical, Supraclavicular, or Inguinal Adenopathy Neurological: Cranial nerves II-XII grossly intact, Neuro grossly intact Psych/Mental Status: Normal Affect, Appropriate Microbiology Past 72 Hours 09/18/20 21:46 Mucosa - Nose SARS-CoV-2 Antigen (Rapid) - Final Current Medications Acetaminophen (Acetaminophen 325 Mg Tablet) 650 mg PO Q6H PRN PRN PRN Reason: Pain Score 1-10/Temp > 100.7 F Hydrocodone Bitart/Acetaminophen (Hydrocodone Bitartrate/Apap 5/325 Tablet) 1.5 tablet PO BID PRN PRN PRN Reason: PAIN 1-10/10 Last Admin: 09/20/20 08:33 Dose: 1.5 tablet Documented by: Aspirin (Aspirin E.C. 81 Mg Tablet) 81 mg PO DAILY@0800 [facility] Last Admin: 09/20/20 08:21 Dose: 81 mg Documented by: Clopidogrel Bisulfate (Clopidogrel Bisulfate 75 Mg Tablet) 75 mg PO DAILY [facility] Last Admin: 09/19/20 09:34 Dose: 75 mg Documented by: Docusate Sodium (Docusate Sodium 100 Mg Capsule) 100 mg PO BID [facility] Last Admin: 09/19/20 21:34 Dose: 100 mg Documented by: Enoxaparin Sodium (Enoxaparin 40 Mg/0.4 Ml Syringe) 40 mg SC DAILY [facility] Last Admin: 09/19/20 09:33 Dose: 40 mg Documented by: Gabapentin (Gabapentin 300 Mg Capsule) [facility] Last Admin: 09/20/20 08:21 Dose: 300 mg Documented by: Ceftriaxone Sodium (Rocephin) 1 gm in 50 mls @ 100 mls/hr IV Q24@2200 [facility] Last Infusion: 09/19/20 22:00 Dose: Infused Documented by: Sodium Chloride () 250 mls @ 15 mls/hr IV .[id number] PRN PRN Reason: Saline Flush Last Infusion: 09/20/20 02:16 Dose: 0 mls/hr Documented by: Sodium Chloride () 250 mls @ 15 mls/hr IV .[id number] PRN PRN Reason: Additional IVPB Infusion Isosorbide Mononitrate (Isosorbide Mononitrate 30 Mg Tablet) 30 mg PO QAM [facility] Last Admin: 09/19/20 09:33 Dose: 30 mg Documented by: Multivitamins (Multivitamins,Therapeutic Tablet) 1 tablet [facility] Last Admin: 09/20/20 08:21 Dose: 1 tablet Documented by: Nutritional Formula (Lactose Free) (Ensure Enlive 120 Ml Liquid) 120 ml PO 4X/DAY [facility] Last Admin: 09/19/20 21:33 Dose: 120 ml Documented by: Ondansetron HCl (Ondansetron 4 Mg/2 Ml Vial) 4 mg IV Q8H PRN PRN PRN Reason: NAUSEA/VOMITING Pantoprazole Sodium (Pantoprazole Sodium 40 Mg Tablet) 40 mg PO DAILY [facility] Last Admin: 09/19/20 09:33 Dose: 40 mg Documented by: Pravastatin Sodium (Pravastatin 40 Mg Tablet) 40 mg PO QHS [facility] Last Admin: 09/19/20 21:59 Dose: 40 mg Documented by: Senna/Docusate Sodium (Senna/Docusate Sodium 1 Tablet) 2 tablet PO BID PRN PRN PRN Reason: Constipation Sertraline HCl ([facility]ine 100 Mg Tablet) [facility] Admin: 09/19/20 21:59 Dose: 200 mg Documented by: Sodium Chloride (0.9% Saline Lock 10 Ml Syringe) 10 - 40 ml IV UD PRN PRN Reason: SALINE FLUSH Last Admin: 09/19/20 21:29 Dose: 10 ml Documented by: Trazodone HCl (Trazodone 100 Mg Tablet) [facility] Last Admin: 09/19/20 21:34 Dose: 100 mg Documented by: Home Medications: Medications to take at Discharge Pravastatin [Pravachol] 40 mg PO QHS 02/05/14 Aspirin E.C. [Ecotrin] 81 mg PO DAILY@0800 02/06/14 Multivitamins,Therapeutic [Multivitamin] 1 tab PO DAILYCM #20 tab 02/07/14 Clopidogrel Bisulfate [Plavix] 75 mg PO DAILY #30 tab 02/27/14 Omeprazole [Prilosec] 40 mg PO DAILY 05/13/14 docusate sodium 100 mg capsule 100 mg PO BID cap 01/30/19 gabapentin 300 mg capsule 300 mg PO DAILY 01/30/19 hydrocodone 7.5 mg-acetaminophen 300 mg tablet 1 tab PO BID PRN tab 01/30/19 sertraline 100 mg tablet 2 tab PO QHS tab 01/30/19 trazodone 100 mg tablet 100 mg PO QHS tab 09/06/19 isosorbide mononitrate 30 mg tablet,extended release 24 hr 30 mg PO QAM #30 tab 03/04/20 nitroglycerin 0.4 mg sublingual tablet 0.4 mg SUBLINGUAL Q5M PRN #25 tab 03/04/20 Ciprofloxacin [Cipro] 500 mg PO BID #10 tab 09/20/20 Following Prescriptions Were Given to Patient: Ciprofloxacin [Cipro] 500 mg PO BID #10 tab Prescription Printed Primary Care Physician: Josi Moreira DO [Primary Care Provider] - Please follow up with your Primary Care Physician in: 1-2 weeks. Disposition: Correction facility Minutes spent on discharge:: 27 Patient Condition:: Stable Medical Necessity - Tobacco Use Smoking Status: Former smoker Meaningful Use Info Meaningful Use Diagnoses (Choose all that apply): None applicable Inpatient E&M: 97619 Disch Hosp
[2020-09-20] MEDS: Docusate Sodium 100 MG Capsule PO (09:39)
[2020-09-20] MEDS: Pantoprazole Sodium 40 MG Tablet PO (09:39)
[2020-09-20] MEDS: Clopidogrel Bisulfate 75 MG Tablet PO (09:39)
[2020-09-20] MEDS: Isosorbide Mononitrate 30 MG Tablet PO (09:39)
[2020-09-20] MEDS: Enoxaparin 40 MG/0.4 ML Syringe SC (09:39)
[2020-09-20 09:45] VITALS: PULSE 68
[2020-09-20 13:12] VITALS: BP 103/60; PULSE 69; RESP 16; TEMP 36.4; O2SAT 96
== END 2020-09-20 14:37 | disposition skilled nursing facility (03) | DRG 690 ==
LOC: ED 23:09 → MS3 09-19 01:56
PROVIDERS: Admitting Provider Hospitalist; Emergency Provider Emergency Medicine; PCP Internal Medicine; Visit Provider Hospitalist
DX: N30.00 Acute cystitis without hematuria (principal); R53.81 Other malaise; I25.118 Atherosclerotic heart disease of native coronary artery with other forms of angina pectoris; I10 Essential (primary) hypertension; E78.5 Hyperlipidemia, unspecified; Z95.5 Presence of coronary angioplasty implant and graft; Z79.02 Long term (current) use of antithrombotics/antiplatelets; Z79.899 Other long term (current) drug therapy; Z87.891 Personal history of nicotine dependence; Z87.440 Personal history of urinary (tract) infections; W06.XXXA Fall from bed, initial encounter; Y93.89 Activity, other specified; Y92.003 Bedroom of unspecified non-institutional (private) residence as the place of occurrence of the external cause; Y99.8 Other external cause status; R74.01 Elevation of levels of liver transaminase levels; G47.33 Obstructive sleep apnea (adult) (pediatric); G89.29 Other chronic pain; Z79.891 Long term (current) use of opiate analgesic; E87.5 Hyperkalemia
CPT/HCPCS: 36415; 70450; 71045; 72072; 72100; 72125; 80053; 81001; 82306; 84484; 85025; 87086; 87088; 87186; 87426; 93005; 97110; 97162; 97166; 97530; 97535; 97802; 99285; J7040; J7050; A4216

== ENCOUNTER 2020-09-20 15:00 | Inpatient (IN) | payer MEDICARE, SELFPAY ==
[2020-09-19 02:38] VITALS: BMI 29.5
[2020-09-20 15:21] VITALS: BP 131/55; PULSE 69; RESP 18; TEMP 36.3; O2SAT 96
[2020-09-20 15:59] VITALS: BMI 29.4
[2020-09-20 16:01] VITALS: BP 131/55; PULSE 69; RESP 18; TEMP 36.3; O2SAT 96
[2020-09-20 16:02] VITALS: BMI 29.4
[2020-09-20] MEDS: Ciprofloxacin 500 MG Tablet PO (17:26)
[2020-09-20] MEDS: Docusate Sodium 100 MG Capsule PO (17:26)
--- NOTE | 2020-09-20 19:25 | HP.PCM_ITS ---
Problem List (1) Debility Status: Acute (2) Urinary tract infection Status: Acute (3) Low back pain Status: Acute (4) Elevated liver enzymes Status: Acute (5) Coronary artery disease Status: Chronic (6) Hypertension Status: Chronic (7) Depression Status: Chronic (8) Sleep apnea Status: Chronic (9) GERD (gastroesophageal reflux disease) Status: Chronic (10) Neuropathic pain Status: Chronic (11) Chronic pain Status: Chronic (12) Insomnia Status: Chronic (13) Hyperlipidemia Status: Chronic Qualifiers: History of Present Illness Date of Admission: 09/20/20 Chief Complaint: Here for rehabilitation, strengthening, prior to discharge home with . 09/18/2020 The patient is a 80 year old Male with below past medical history presented to [facility] Emergency Department with weakness, fall. 09/18/2020 CT brain involutional changes of brain. 09/18/2020 CT cervical spine C5-6 status post fusion, C6-7 status post fusion. 09/18/2020 Chest X-ray chronic obstructive pulmonary disease, otherwise negative. 09/18/2020 X-ray lumbar spine, negative acute findings. 09/18/2020 X-ray thoracic spine, osteoporosis, negative acute findings. Weakness worse over 2 months, fell out of bed. Neck pain, diffuse back pain. Negative head injury. EKG okay, WBC 12.6, Troponin normal, K 5.2. UA consistent with urinary tract infection, urine culture sent. Rocephin, IV fluids given. 09/19/2020 Admit to Hospital. Rocephin IV for urinary tract infection, previous urine culture E. Coli. PT/OT for halfway facility. Trend CMP for elevated liver enzymes. Continue Cipro 500MG twice daily x 5 days to finish course for urinary tract infection. 09/20/2020 Admit to TCU with debility, here for rehabilitation, strengthening, prior to discharge home with . Past Medical History Past Medical History (Chronic Problems): Chronic Problems (Last Reviewed 09/19/20 @ 06:[address] Elmo Blount MD) Coronary artery disease (Chronic) Hypertension (Chronic) Depression (Chronic) Sleep apnea (Chronic) GERD (gastroesophageal reflux disease) (Chronic) Neuropathic pain (Chronic) Chronic pain (Chronic) Insomnia (Chronic) Atherosclerotic heart disease of [place] coronary artery with other forms of angina pectoris (Chronic) JAS-MNC-Utwsj w/ 3.0 x 12 mm Xience Xpedition Stent and ZDF-Qpcq-Exx RCA w/ 2.75 x 38 mm Xience Xpedition Stent 01/2014 History of coronary artery stent placement (Chronic 02/12/14) FXT-UTQ-Erffm w/ 3.0 x 12 mm Xience Xpedition Stent and IME-Xvda-Ppu RCA w/ 2.75 x 38 mm Xience Xpedition Stent 01/2014 Essential (primary) hypertension (Chronic) Hyperlipidemia (Chronic) Medical History: Medical History (Last Reviewed 09/19/20 @ 06:[address] Elmo Blount MD) Atherosclerotic heart disease of [place] coronary artery with other forms of angina pectoris (Chronic) I25.118 PUL-QFU-Igpsn w/ 3.0 x 12 mm Xience Xpedition Stent and QCZ-Sayg-Pmk RCA w/ 2.75 x 38 mm Xience Xpedition Stent 01/2014 Essential (primary) hypertension (Chronic) I10 Hyperlipidemia (Chronic) E78.5 Physical debility (Acute) R53.81 Ataxia R27.0 Chronic pain G89.29 DDD (degenerative disc disease), cervical M50.30 DDD (degenerative disc disease), lumbar M51.36 Depression F32.9 Obstructive sleep apnea G47.33 Orthostatic hypotension (Resolved) I95.1 Pain (Inactive) R52 Allergies codeine Allergy (Verified 09/18/20 21:03) Unknown Home Medications: Ambulatory Orders Medication Instructions Recorded Pravastatin [Pravachol] 40 mg PO QHS 02/05/14 Aspirin E.C. [Ecotrin] 81 mg PO DAILY@0800 02/06/14 Omeprazole [Prilosec] 40 mg PO DAILY 05/13/14 docusate sodium 100 mg capsule 100 mg PO BID cap 01/30/19 gabapentin 300 mg capsule 300 mg PO DAILY 01/30/19 hydrocodone 7.5 mg-acetaminophen 1 tab PO BID PRN tab 01/30/19 300 mg tablet sertraline 100 mg tablet 2 tab PO QHS tab 01/30/19 trazodone 100 mg tablet 100 mg PO QHS tab 09/06/19 nitroglycerin 0.4 mg sublingual 0.4 mg SUBLINGUAL Q5M PRN #25 tab 03/04/20 tablet Ciprofloxacin [Cipro] 500 mg PO BID 09/20/20 Clopidogrel Bisulfate [Plavix] 75 mg PO DAILY 09/20/20 Isosorbide Mononitrate [Isosorbide 30 mg PO QAM 09/20/20 Mononitrate ER] Multivitamins,Therapeutic 1 tab PO DAILYCM 09/20/20 [Multivitamin] Surgical History: Surgical History (Last Reviewed 09/19/20 @ 06:[address] Elmo Blount MD) History of coronary artery stent placement (Chronic) Onset Date: 02/12/14 Z95.5 EQP-SWP-Iuscn w/ 3.0 x 12 mm Xience Xpedition Stent and DWU-Vgnm-Qzf RCA w/ 2.75 x 38 mm Xience Xpedition Stent 01/2014 History of appendectomy Z90.49 History of back surgery Z98.890 History of kyphoplasty Z98.890 History of left heart catheterization Onset Date: 05/13/14 Z98.890 Hx of cholecystectomy Z90.49 S/P tendon repair Z98.890 RUE tendon repair Surgical History: angioplasty - Cardiac stent., appendectomy, cholecystectomy, - - Back surgery kyphoplasty, cervical and lumbar spine surgery, arm surgery, tendon repair. Psychiatric History: Anxiety, Depression Lives: Spouse/ Significant Other Smoking Status: Former smoker Tobacco Use: Non-smoker Alcohol: None Drugs: None - *Family History Maternal Family History: Family History (Last Reviewed 03/04/20 @ 13:08 by Carolee ESPINOZA, PA) Father CVA (cerebral vascular accident) Brother Hypertension Mother Cancer History Items: No pertinent history Paternal Family History: Family History (Last Reviewed 03/04/20 @ 13:08 by Carolee ESPINOZA, PA) Father CVA (cerebral vascular accident) Brother Hypertension Mother Cancer History Items: No pertinent history Sibling Family History: Family History (Last Reviewed 03/04/20 @ 13:08 by Carolee ESPINOZA, PA) Father CVA (cerebral vascular accident) Brother Hypertension Mother Cancer History Items: No pertinent history Review of Systems Constitutional: Denies: Chills, Fever, Weight Change HEENT: Denies: Head Aches, Sinus Congestion, Sinus Drainage Cardiovascular: Denies: Chest Pain, Palpitations Respiratory: Denies: Cough, Shortness of breath at rest, Sputum production Gastrointestinal: Denies: Abdominal Pain, Nausea, Vomiting Genitourinary: Denies: Dysuria Musculoskeletal: Denies: Joint Pain, Joint Tenderness Skin: Denies: Rash, Wounds Neurological: Denies: Numbness, Tingling, Focal weakness Psychiatric: Denies: Anxiety, Depression, Homicidal Ideations, Suicidal Ideations Hematologic/ Lymphatic: Denies: Easy Bruising, Easy Bleeding VTE Information - Inpt Only VTE Present on Admission: No VTE Mechan Device Prophylaxis: Knee High KANIKA Hose VTE Pharm Prophylaxis ordered?: No Reason prophylaxis not ordered:: Treatment Not Indicated Patient Problems: Active and Suspected Problems (Last Reviewed 09/19/20 @ 06:[address] Elmo Blount MD) Debility (Acute) Urinary tract infection (Acute) Low back pain (Acute) Elevated liver enzymes (Acute) - Physical Exam Vitals/I&O's: Vital Signs Temp Pulse Resp BP Pulse Ox 97.3 F L 69 18 131/55 H 96 09/20/20 16:01 09/20/20 16:01 09/20/20 16:01 09/20/20 16:01 09/20/20 16:01 Oxygen Delivery Method Room Air Weight: 95.708 kg Body Mass Index (BMI) 29.4 General: Alert, Oriented x3, Cooperative HEENT: Atraumatic, PERRLA, EOMI, Normocephalic Neck: Supple, No JVD, Negative Carotid Bruits Lungs: Clear to auscultation, Normal air movement Cardiovascular: Regular rate, No murmurs Abdomen: Bowel Sounds Present, Soft, Non Tender Extremities: No edema, Capillary Refill Less than 3 Seconds Skin: No rashes, No breakdown Musculoskeletal: No Tenderness to Palpation of Joints or Extremities Neurological: Cranial nerves II-XII grossly intact Psych/Mental Status: Normal Affect, Appropriate Current Medications Hydrocodone Bitart/Acetaminophen (Hydrocodone Bitartrate/Apap 5/325 Tablet) 1.5 tablet PO BID PRN PRN PRN Reason: Pain Score 1-10 Aspirin (Aspirin E.C. 81 Mg Tablet) 81 mg PO DAILY@0800 [facility] Ciprofloxacin HCl (Ciprofloxacin 500 Mg Tablet) 500 mg PO BID [facility] Stop: 09/25/20 06:01 Last Admin: 09/20/20 17:26 Dose: 500 mg Documented by: Clopidogrel Bisulfate (Clopidogrel Bisulfate 75 Mg Tablet) 75 mg PO DAILY [facility] Docusate Sodium (Docusate Sodium 100 Mg Capsule) 100 mg PO BID [facility] Last Admin: 09/20/20 17:26 Dose: 100 mg Documented by: Gabapentin (Gabapentin 300 Mg Capsule) 300 mg PO DAILY [facility] Influenza Virus Vaccine Quadrival (Influenza Vaccine (6mos+)/Pf 0.5 Ml Syringe) 0.5 ml IM .ONCE ONE Stop: 09/21/20 10:01 Isosorbide Mononitrate (Isosorbide Mononitrate 30 Mg Tablet) 30 mg PO DAILY [facility] Multivitamins (Multivitamins,Therapeutic Tablet) 1 tablet PO DAILYCM [facility] Nitroglycerin (Nitroglycerin (Inpatient Use) 0.4 Mg Tab.Subl) 0.4 mg SUBLINGUAL Q5M PRN PRN Reason: Angina Pantoprazole Sodium (Pantoprazole Sodium 40 Mg Tablet) 40 mg PO DAILY [facility] Pravastatin Sodium (Pravastatin 40 Mg Tablet) 40 mg PO QHS [facility] Sertraline HCl (Sertraline 100 Mg Tablet) 200 mg PO QHS [facility] Trazodone HCl (Trazodone 100 Mg Tablet) 100 mg PO QHS [facility] Tuberculin PPD (Tuberculin,Purif.Prot.Deriv. 50 Tu/Ml Vial) 5 tu ID X1 ONE Stop: 09/21/20 10:01 Tuberculin PPD (Tuberculin,Purif.Prot.Deriv. 50 Tu/Ml Vial) 5 tu ID X1 ONE Stop: 09/28/20 10:01 Assessment/Plan All Active Problems (Last Reviewed 09/19/20 @ 06:[address] Elmo Blount MD) Cystitis (Acute) Debility (Acute) Urinary tract infection (Acute) Low back pain (Acute) Elevated liver enzymes (Acute) Physical debility (Acute) Chest pain (Resolved) Left-sided chest wall pain (Resolved) Orthostatic hypotension (Resolved) 80 year old male with below past medical history hospitalized for urinary tract infection, fall, complicated by elevated liver enzymes, admitted to TCU with debility, here for rehabilitation, strengthening, prior to discharge home with . * Debility - PT/OT. * Pain - [place] 5/325MG 1.5 tablet BID PRN pain (1-10). * Bowel - Miralax 17GM daily, Senna/colace 2 tablets BID, MOM 30ML daily PRN, Dulcolax 10MG [place] daily PRN. * Adult immunization - Administer Prevnar 13, Pneumovax 23, Fluzone, COVID19 vaccine as appropriate. * DVT prophylaxis - Hold, already on dual antiplatelet therapy. * Coronary Artery Disease - Isosorbide [place] 30Mg daily, Plavix 75MG daily, Aspirin 81MG daily, NTG 0.4MG SL Q5M PRN. * Urinary tract infection - Cipro 500MG BID thru 09/25/2020. * Neuropathic pain - Gabapentin 300MG daily. * Nutrition - MVI daily. * GERD - Pantoprazole 40MG daily. * Hyperlipidemia - Pravastatin 40MG QHS. 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 * Insomnia - Trazodone 100MG QHS, stable chronic termite treater helper use, GDR not recommended.
[2020-09-20] MEDS: Sertraline 100 MG Tablet 200 MG PO (20:32)
[2020-09-20] MEDS: traZODone 100 MG Tablet PO (20:33)
[2020-09-20] MEDS: Pravastatin 40 MG Tablet PO (20:34)
[2020-09-20] MEDS: HYDROcodone Bitartrate/Apap 5/325 Tablet PO (22:42)
[2020-09-21 06:05] VITALS: BP 127/77; PULSE 72; RESP 16; TEMP 37.1; O2SAT 98
[2020-09-21] MEDS: Polyethylene Glycol 3350 17 GM PACKET PO (06:07)
[2020-09-21] MEDS: Clopidogrel Bisulfate 75 MG Tablet PO (06:08)
[2020-09-21] MEDS: Senna/Docusate Sodium 1 Tablet 2 TABLET PO ×2 (06:08→17:44)
[2020-09-21] MEDS: Gabapentin 300 MG Capsule PO (06:08)
[2020-09-21] MEDS: Ciprofloxacin 500 MG Tablet PO ×2 (06:08→17:44)
[2020-09-21] MEDS: Isosorbide Mononitrate 30 MG Tablet PO (06:09)
[2020-09-21] MEDS: Pantoprazole Sodium 40 MG Tablet PO (06:09)
[2020-09-21 06:16] LABS: Absolute Neutrophil Count 3.5 X10^3/uL (2.0-7.7); Basophil# 0.01 X10^3/uL; Basophil% 0.2 % (0-1); Eosinophil# 0.17 X10^3/uL; Eosinophils% 3.5 % (0-5); Hematocrit 35.8 % (40-54); Hemoglobin 11.9 g/dL (13.0-16.5); Lymphocyte % 14.4 % (19-41); Mean Corp Hgb Conc 33.2 g/dL (32-36); Mean Corpuscular Hgb 33.7 pg (27.0-32.0); Mean Corpuscular Volume 101.4 fL (80-94); Mean Platelet Vol. 10.7 fl (6.2-12.0); Monocyte# 0.47 X10^3/uL; Monocyte% 9.7 % (0-10); NRBC Flagged by Analyzer 0 % (0-5); Neutrophil # 3.48 X10^3/uL (2.7-7.7); Neutrophil % 71.8 % (47-70); Platelet Count 130 K/mm3 (150-450); RBC Distribution Width CV 13.1 % (11.6-14.6); RBC Distribution Width SD 48.4 fl (35.1-43.9); Red Blood Count 3.53 M/mm3 (4.6-6.2); White Blood Count 4.9 K/mm3 (4.4-11.0)
[2020-09-21 06:41] LABS: Anion Gap 6 (5-15); BUN 15 mg/dL (7-18); BUN/Creat Ratio 16.8 RATIO (10-20); Calcium,Total 8.5 mg/dL (8.5-10.1); Chloride 104 mmol/L (98-107); Creatinine, Serum 0.89 mg/dL (0.70-1.30); EST Glomerular Filtration Rate 87 mL/min (>60); Est Glom Filt Rate - Afr Amer 106 mL/min (>60); Estimated Creatinine Clearance 72.86 ml/min; Glucose 85 mg/dL (74-106); Sodium Level 136 mmol/L (136-145)
[2020-09-21] MEDS: Ondansetron ODT 4 MG Tablet PO (08:45)
--- NOTE | 2020-09-21 10:15 | NURSING ---
pt nauseated this AM, dry heaves. dr rosas updated, new order zofran PRN. given and effective. will administer 0800 meds at lunch per pt request.
[2020-09-21] MEDS: Multivitamins,Therapeutic Tablet 1 TABLET PO (12:19)
[2020-09-21] MEDS: Aspirin E.C. 81 MG Tablet PO (12:19)
[2020-09-21] MEDS: Tuberculin,Purif.prot.deriv. 50 TU/ML Vial 5 ML ID (12:21)
[2020-09-21 14:25] VITALS: BP 130/67; PULSE 68; RESP 18; TEMP 37.1; O2SAT 97
[2020-09-21] MEDS: Pravastatin 40 MG Tablet PO (21:12)
[2020-09-21] MEDS: traZODone 100 MG Tablet PO (21:12)
[2020-09-21] MEDS: Sertraline 100 MG Tablet 200 MG PO (21:13)
[2020-09-22 05:43] VITALS: BP 104/60; PULSE 63; RESP 16; TEMP 36.6; O2SAT 97
[2020-09-22] MEDS: Polyethylene Glycol 3350 17 GM PACKET PO (05:45)
[2020-09-22] MEDS: Pantoprazole Sodium 40 MG Tablet PO (05:46)
[2020-09-22] MEDS: Senna/Docusate Sodium 1 Tablet 2 TABLET PO ×2 (05:46→17:29)
[2020-09-22] MEDS: Gabapentin 300 MG Capsule PO (05:46)
[2020-09-22] MEDS: Clopidogrel Bisulfate 75 MG Tablet PO (05:46)
[2020-09-22] MEDS: Ciprofloxacin 500 MG Tablet PO ×2 (05:47→17:29)
[2020-09-22] MEDS: Isosorbide Mononitrate 30 MG Tablet PO (05:47)
[2020-09-22] MEDS: Aspirin E.C. 81 MG Tablet PO (08:08)
[2020-09-22] MEDS: Multivitamins,Therapeutic Tablet 1 TABLET PO (08:08)
[2020-09-22 10:00] VITALS: RESP 16
--- NOTE | 2020-09-22 11:42 | PCM.PN.RX ---
<Diane Vogel M - Last Filed: 09/22/20 11:42> Progress Note - Pharmacy Subjective: [] Objective: Allergies codeine Allergy (Verified 09/18/20 21:03) Unknown Current Medications Generic Name Dose Route Start Last Admin Trade Name Speedy PRN Reason Stop Dose Admin Hydrocodone Bitart/Acetaminophen 1.5 tablet 09/20/20 15:48 09/20/20 22:42 Hydrocodone Bitartrate/Apap 5/325 Tablet PO 1.5 tablet BID PRN PRN Administration Pain Score 1-10 Aspirin 81 mg 09/21/20 08:00 09/22/20 08:08 Aspirin E.C. 81 Mg Tablet PO 81 mg DAILY@0800 GILMA Administration Bisacodyl 10 mg 09/20/20 19:39 Bisacodyl 10 Mg Suppository RECTAL DAILY PRN Constipation Ciprofloxacin HCl 500 mg 09/20/20 18:00 09/22/20 05:47 Ciprofloxacin 500 Mg Tablet PO 09/25/20 06:01 500 mg BID GILMA Administration Clopidogrel Bisulfate 75 mg 09/21/20 06:00 09/22/20 05:46 Clopidogrel Bisulfate 75 Mg Tablet PO 75 mg DAILY GILMA Administration Gabapentin 300 mg 09/21/20 06:00 09/22/20 05:46 Gabapentin 300 Mg Capsule PO 300 mg DAILY GILMA Administration Isosorbide Mononitrate 30 mg 09/21/20 06:00 09/22/20 05:47 Isosorbide Mononitrate 30 Mg Tablet PO 30 mg DAILY GILMA Administration Magnesium Hydroxide 30 ml 09/20/20 19:38 Magnesium Hydroxide 30 Ml Udc PO DAILY PRN Constipation Multivitamins 1 tablet 09/21/20 08:00 09/22/20 08:08 Multivitamins,Therapeutic Tablet PO 1 tablet DAILYCM GILMA Administration Nitroglycerin 0.4 mg 09/20/20 15:47 Nitroglycerin (Inpatient Use) 0.4 Mg Tab.Subl SUBLINGUAL Q5M PRN Angina Ondansetron HCl 4 mg 09/21/20 08:39 09/21/20 08:45 Ondansetron Odt 4 Mg Tablet PO 4 mg Q8H PRN PRN Administration NAUSEA/VOMITING Pantoprazole Sodium 40 mg 09/21/20 06:00 09/22/20 05:46 Pantoprazole Sodium 40 Mg Tablet PO 40 mg DAILY GILMA Administration Polyethylene Glycol 17 gm 09/21/20 06:00 09/22/20 05:45 Polyethylene Glycol 3350 17 Gm Packet PO 17 gm DAILY GILMA Administration Pravastatin Sodium 40 mg 09/20/20 22:00 09/21/20 21:12 Pravastatin 40 Mg Tablet PO 40 mg QHS GILMA Administration Senna/Docusate Sodium 2 tablet 09/21/20 06:00 09/22/20 05:46 Senna/Docusate Sodium 1 Tablet PO 2 tablet BID GILMA Administration Sertraline HCl 200 mg 09/20/20 22:00 09/21/20 21:13 Sertraline 100 Mg Tablet PO 200 mg QHS GILMA Administration Trazodone HCl 100 mg 09/20/20 22:00 09/21/20 21:12 Trazodone 100 Mg Tablet PO 100 mg QHS GILMA Administration Tuberculin PPD 5 tu 09/28/20 10:00 Tuberculin,Purif.Prot.Deriv. 50 Tu/Ml Vial ID 09/28/20 10:01 X1 ONE Problem List (Last Reviewed 09/19/20 @ 06:[address] Elmo Blount MD) Debility (Acute) Urinary tract infection (Acute) Low back pain (Acute) Elevated liver enzymes (Acute) Coronary artery disease (Chronic) Hypertension (Chronic) Depression (Chronic) Sleep apnea (Chronic) GERD (gastroesophageal reflux disease) (Chronic) Neuropathic pain (Chronic) Chronic pain (Chronic) Insomnia (Chronic) Hyperlipidemia (Chronic) Vital Signs Temp Pulse Resp BP Pulse Ox 98 F 63 16 104/60 97 09/22/20 05:43 09/22/20 05:43 09/22/20 05:43 09/22/20 05:43 09/22/20 05:43 Oxygen Delivery Method Room Air Weight: 95.708 kg Body Mass Index (BMI) 29.4 Sodium 136 mmol/L (136-145) 09/21/20 06:00 Potassium 4.0 mmol/L (3.5-5.1) 09/21/20 06:00 Chloride 104 mmol/L (98-107) 09/21/20 06:00 Carbon Dioxide 26.0 mmol/L (21.0-32.0) 09/21/20 06:00 Anion Gap 6 (5-15) 09/21/20 06:00 BUN 15 mg/dL (7-18) 09/21/20 06:00 Creatinine 0.89 mg/dL (0.70-1.30) 09/21/20 06:00 Est GFR (MDRD) Af Amer 106 mL/min (>60) 09/21/20 06:00 Est GFR (MDRD) Non-Af 87 mL/min (>60) 09/21/20 06:00 BUN/Creatinine Ratio 16.8 RATIO (10-20) 09/21/20 06:00 Glucose 85 mg/dL (74-106) 09/21/20 06:00 Assessment/Plan: 1. Pain: [place] 5/325 1.5 tab PO BID PRN Pain 1-06/07. Please continue to monitor for increased/decreased S/S pain, PRN medication usage. 2. UTI: Cipro 500mg PO BID thru 09/25/20. Please continue to monitor for resolution of UTI symptoms. 3. CAD: Aspirin 81mg PO Daily, Plavix 75mg PO Daily, Imdur 30mg PO Daily, Pravastatin 40mg PO QHS, Nitrostat 0.4mg SL Q5m PRN. Please continue to monitor BP, S/S bleeding/bruising, lipid panel annually or sooner if clinically indicated. 4. Neuropathic Pain: Gabapentin 300mg PO Daily. Please continue to monitor renal function, medication effectiveness. 5. GERD: Protonix 40mg PO Daily. Please continue to monitor for GERD flare-up. Can also consider nonpharmacologic treatment to also help lessen the frequency of exacerbations. 6. Nausea: Zofran 4mg PO Q8h PRN. Please continue to monitor for medication effectiveness, PRN medication use. 7. General Wellness: Multivitamin 1 tab PO Daily. Please continue to monitor. Psychotropic Medications: Depression: Zoloft 200mg PO QHS. See note in H/P regarding GDR. Insomnia: Trazodone 100mg PO QHS. See note in H/P regarding GDR. Unnecessary Medications: Bowel Regimen: Miralax 17g PO Daily, Senna/Docusate 2 tab PO BID, Dulcolax 10mg [place] Daily PRN, MOM 30mL PO Daily PRN. Please continue to monitor for increased/decreased constipation and/or diarrhea, PRN medication use. Date of Note:: 09/22/20 - Provider Comments Provider responsibility: Provider responsible to enter orders to implement recommendations <Darnell Neumann Chi - Last Filed: 09/22/20 13:07> Progress Note - Pharmacy Subjective: [] Objective: Allergies codeine Allergy (Verified 09/18/20 21:03) Unknown Current Medications Generic Name Dose Route Start Last Admin Trade Name Freq PRN Reason Stop Dose Admin Hydrocodone Bitart/Acetaminophen 1.5 tablet 09/20/20 15:48 09/20/20 22:42 Hydrocodone Bitartrate/Apap 5/325 Tablet PO 1.5 tablet BID PRN PRN Administration Pain Score 1-10 Aspirin 81 mg 09/21/20 08:00 09/22/20 08:08 Aspirin E.C. 81 Mg Tablet PO 81 mg DAILY@0800 GILMA Administration Bisacodyl 10 mg 09/20/20 19:39 Bisacodyl 10 Mg Suppository RECTAL DAILY PRN Constipation Ciprofloxacin HCl 500 mg 09/20/20 18:00 09/22/20 05:47 Ciprofloxacin 500 Mg Tablet PO 09/25/20 06:01 500 mg BID GILMA Administration Clopidogrel Bisulfate 75 mg 09/21/20 06:00 09/22/20 05:46 Clopidogrel Bisulfate 75 Mg Tablet PO 75 mg DAILY GILMA Administration Gabapentin 300 mg 09/21/20 06:00 09/22/20 05:46 Gabapentin 300 Mg Capsule PO 300 mg DAILY GILMA Administration Isosorbide Mononitrate 30 mg 09/21/20 06:00 09/22/20 05:47 Isosorbide Mononitrate 30 Mg Tablet PO 30 mg DAILY GILMA Administration Magnesium Hydroxide 30 ml 09/20/20 19:38 Magnesium Hydroxide 30 Ml Udc PO DAILY PRN Constipation Multivitamins 1 tablet 09/21/20 08:00 09/22/20 08:08 Multivitamins,Therapeutic Tablet PO 1 tablet DAILYCM GILMA Administration Nitroglycerin 0.4 mg 09/20/20 15:47 Nitroglycerin (Inpatient Use) 0.4 Mg Tab.Subl SUBLINGUAL Q5M PRN Angina Ondansetron HCl 4 mg 09/21/20 08:39 09/21/20 08:45 Ondansetron Odt 4 Mg Tablet PO 4 mg Q8H PRN PRN Administration NAUSEA/VOMITING Pantoprazole Sodium 40 mg 09/21/20 06:00 09/22/20 05:46 Pantoprazole Sodium 40 Mg Tablet PO 40 mg DAILY GILMA Administration Polyethylene Glycol 17 gm 01/24/21 06:00 09/22/20 05:45 Polyethylene Glycol 3350 17 Gm Packet PO 17 gm DAILY GILMA Administration Pravastatin Sodium 40 mg 09/20/20 22:00 09/21/20 21:12 Pravastatin 40 Mg Tablet PO 40 mg QHS GILMA Administration Senna/Docusate Sodium 2 tablet 09/21/20 06:00 09/22/20 05:46 Senna/Docusate Sodium 1 Tablet PO 2 tablet BID GILMA Administration Sertraline HCl 200 mg 09/20/20 22:00 09/21/20 21:13 Sertraline 100 Mg Tablet PO 200 mg QHS GILMA Administration Trazodone HCl 100 mg 09/20/20 22:00 09/21/20 21:12 Trazodone 100 Mg Tablet PO 100 mg QHS GILMA Administration Tuberculin PPD 5 tu 09/28/20 10:00 Tuberculin,Purif.Prot.Deriv. 50 Tu/Ml Vial ID 09/28/20 10:01 X1 ONE Problem List (Last Reviewed 09/19/20 @ 06:[address] Elmo Blount MD) Debility (Acute) Urinary tract infection (Acute) Low back pain (Acute) Elevated liver enzymes (Acute) Coronary artery disease (Chronic) Hypertension (Chronic) Depression (Chronic) Sleep apnea (Chronic) GERD (gastroesophageal reflux disease) (Chronic) Neuropathic pain (Chronic) Chronic pain (Chronic) Insomnia (Chronic) Hyperlipidemia (Chronic) Vital Signs Temp Pulse Resp BP Pulse Ox 98 F 63 16 104/60 97 09/22/20 05:43 09/22/20 05:43 09/22/20 05:43 09/22/20 05:43 09/22/20 05:43 Oxygen Delivery Method Room Air Weight: 95.708 kg Body Mass Index (BMI) 29.4 Sodium 136 mmol/L (136-145) 09/21/20 06:00 Potassium 4.0 mmol/L (3.5-5.1) 09/21/20 06:00 Chloride 104 mmol/L (98-107) 09/21/20 06:00 Carbon Dioxide 26.0 mmol/L (21.0-32.0) 09/21/20 06:00 Anion Gap 6 (5-15) 09/21/20 06:00 BUN 15 mg/dL (7-18) 09/21/20 06:00 Creatinine 0.89 mg/dL (0.70-1.30) 09/21/20 06:00 Est GFR (MDRD) Af Amer 106 mL/min (>60) 09/21/20 06:00 Est GFR (MDRD) Non-Af 87 mL/min (>60) 09/21/20 06:00 BUN/Creatinine Ratio 16.8 RATIO (10-20) 09/21/20 06:00 Glucose 85 mg/dL (74-106) 09/21/20 06:00 Assessment/Plan: Psychotropic Medications: Unnecessary Medications: Bowel Regimen: - Provider Comments Provider responsibility: Provider responsible to enter orders to implement recommendations Provider Comments to Recommendations by Pharmacy: Agree
--- NOTE | 2020-09-22 13:24 | CASEMGMT ---
Social Work Discussed code status with pt. Pt confirmed full code. MOLST form reviewed, communication to , placed in chart. Lorena Ennis, ELECTRICAL MAINTENANCE SUPERVISOR POTATO CHIP FRIER
[2020-09-22 14:28] VITALS: BP 110/73; PULSE 70; RESP 18; TEMP 36.4; O2SAT 94
[2020-09-22] MEDS: traZODone 100 MG Tablet PO (21:25)
[2020-09-22] MEDS: Pravastatin 40 MG Tablet PO (21:25)
[2020-09-22] MEDS: Sertraline 100 MG Tablet 200 MG PO (21:25)
[2020-09-23 04:00] VITALS: BP 144/90; PULSE 59; RESP 16; TEMP 36.1; O2SAT 96
[2020-09-23] MEDS: Polyethylene Glycol 3350 17 GM PACKET PO (05:35)
[2020-09-23] MEDS: Isosorbide Mononitrate 30 MG Tablet PO (05:35)
[2020-09-23] MEDS: Ciprofloxacin 500 MG Tablet PO ×2 (05:35→16:23)
[2020-09-23] MEDS: Pantoprazole Sodium 40 MG Tablet PO (05:35)
[2020-09-23] MEDS: Clopidogrel Bisulfate 75 MG Tablet PO (05:35)
[2020-09-23] MEDS: Senna/Docusate Sodium 1 Tablet 2 TABLET PO (05:35)
[2020-09-23] MEDS: Gabapentin 300 MG Capsule PO (05:35)
[2020-09-23] MEDS: Multivitamins,Therapeutic Tablet 1 TABLET PO (08:41)
[2020-09-23] MEDS: Aspirin E.C. 81 MG Tablet PO (08:41)
--- NOTE | 2020-09-23 13:42 | NURSING ---
Rates back pain at #8/10 but states i live with pain that high. Refuses offer of pain medication at this time. Assisted to bathroom. 1 assist and resident states he is making a lot of progress.
[2020-09-23 13:44] VITALS: BP 112/65; PULSE 71; RESP 16; TEMP 36.8; O2SAT 93
[2020-09-23] MEDS: traZODone 100 MG Tablet PO (20:48)
[2020-09-23] MEDS: HYDROcodone Bitartrate/Apap 5/325 Tablet PO (20:48)
[2020-09-23] MEDS: Sertraline 100 MG Tablet 200 MG PO (20:48)
[2020-09-23] MEDS: Pravastatin 40 MG Tablet PO (20:48)
--- NOTE | 2020-09-23 23:57 | NURSING ---
Patient ambulates to the bathroom to void, min assist x1 using wheeled walker. Back to bed with set up assist per this nurse. Bandaid applied to bridge of nose per patient request prior to applying full face mask for CPAP/BiPAP applied. Bed in lowest position. Top two siderails up. Call light within reach.
[2020-09-24 04:00] VITALS: BP 159/86; PULSE 61; RESP 16; TEMP 36; O2SAT 93
[2020-09-24] MEDS: Pantoprazole Sodium 40 MG Tablet PO (05:21)
[2020-09-24] MEDS: Senna/Docusate Sodium 1 Tablet 2 TABLET PO (05:21)
[2020-09-24] MEDS: Ciprofloxacin 500 MG Tablet PO ×2 (05:21→16:29)
[2020-09-24] MEDS: Gabapentin 300 MG Capsule PO (05:21)
[2020-09-24] MEDS: Polyethylene Glycol 3350 17 GM PACKET PO (05:21)
[2020-09-24] MEDS: Isosorbide Mononitrate 30 MG Tablet PO (05:21)
[2020-09-24] MEDS: Clopidogrel Bisulfate 75 MG Tablet PO (05:21)
[2020-09-24] MEDS: Multivitamins,Therapeutic Tablet 1 TABLET PO (08:44)
[2020-09-24] MEDS: Aspirin E.C. 81 MG Tablet PO (08:44)
[2020-09-24 13:30] VITALS: BP 134/73; PULSE 64; RESP 16; TEMP 36.2; O2SAT 96
--- NOTE | 2020-09-24 15:42 | CASEMGMT ---
Social Work IDT met with patient and via conference call for care plan meeting. Discussed patient's progress in therapy and nursing. See notes for details. Pt is out of isolation 10/04. Explained [facility] 09[facility]23 and continued stay is not guaranteed. Discussed safety concerns at home with report of multiple falls a week prior. Family/pt want to ensure pt has improved balance and strength prior to DC home. SW to continue to follow to assist with DC planning. Lorena Ennis, FINGERPRINTER CREDIT RISK ANALYST
--- NOTE | 2020-09-24 16:37 | CHAPLAIN ---
Type of Pastoral Visit _x__ Initial Visit ___ Follow-up Visit ___ On-call Visit ___ General Patient Visit ___ Spiritual Assessment ___ Family Conference ___ Bereavement ___ Rapid Response ___ Code Blue ___ Other (describe below) Pastoral Care Referral From ___ Patient ___ Family ___ Nurse ___ Physician ___ [employer] ___ Anesthesiologist Assistant _x__ Other (describe below) Sacrament/Intervention _x__ Active listening ___ Anointing ___ Presybeterian ___ Bereavement ___ Communion _x__ Rupal exploration ___ _x__ Life review _x__ Prayer ___ Reconciliation ___ Sacrament of Sick _x__ Supportive presence ___ Wedding ___ Other (describe below) Pastoral Comments visit recommended by Activites Director and welcomed by patient; pt expresses his discouragement and frustration about loss of ability to work with his hands, get around safely on his legs, and to be generally productive in life; pt has some spiritual questions in relation to his discouragement; pt states he desires to be around people and would benefit from more social contact; prayer welcomed
[2020-09-24] MEDS: Sertraline 100 MG Tablet 200 MG PO (21:15)
[2020-09-24] MEDS: HYDROcodone Bitartrate/Apap 5/325 Tablet PO (21:15)
[2020-09-24] MEDS: traZODone 100 MG Tablet PO (21:15)
[2020-09-24] MEDS: Pravastatin 40 MG Tablet PO (21:15)
[2020-09-25 04:00] VITALS: BP 140/75; PULSE 59; RESP 16; TEMP 36.6; O2SAT 92
[2020-09-25] MEDS: Isosorbide Mononitrate 30 MG Tablet PO (06:07)
[2020-09-25] MEDS: Clopidogrel Bisulfate 75 MG Tablet PO (06:07)
[2020-09-25] MEDS: Pantoprazole Sodium 40 MG Tablet PO (06:07)
[2020-09-25] MEDS: Gabapentin 300 MG Capsule PO (06:07)
[2020-09-25] MEDS: Ciprofloxacin 500 MG Tablet PO (06:08)
[2020-09-25] MEDS: Multivitamins,Therapeutic Tablet 1 TABLET PO (08:12)
[2020-09-25] MEDS: Aspirin E.C. 81 MG Tablet PO (08:12)
[2020-09-25 10:00] VITALS: PULSE 86; RESP 16; O2SAT 96
[2020-09-25 12:55] VITALS: BP 95/40; PULSE 68; RESP 16; TEMP 36.3; O2SAT 93
--- NOTE | 2020-09-25 14:39 | CASEMGMT ---
Social Work Met with patient to inform him of insurance approval with NRD 09/30 and EDC 10/04. Explained and provided insurance care plan to pt. Pt agreeable. Will continue to follow to assist with DC planning. [place]IA OsunaW
[2020-09-25] MEDS: Senna/Docusate Sodium 1 Tablet 2 TABLET PO (17:16)
[2020-09-25] MEDS: Sertraline 100 MG Tablet 200 MG PO (20:18)
[2020-09-25] MEDS: traZODone 100 MG Tablet PO (20:18)
[2020-09-25] MEDS: Pravastatin 40 MG Tablet PO (20:19)
[2020-09-26 06:09] VITALS: BP 138/74; PULSE 62; RESP 16; TEMP 36.1; O2SAT 95
[2020-09-26] MEDS: Clopidogrel Bisulfate 75 MG Tablet PO (06:11)
[2020-09-26] MEDS: Isosorbide Mononitrate 30 MG Tablet PO (06:11)
[2020-09-26] MEDS: Gabapentin 300 MG Capsule PO (06:11)
[2020-09-26] MEDS: Pantoprazole Sodium 40 MG Tablet PO (06:11)
[2020-09-26] MEDS: Aspirin E.C. 81 MG Tablet PO (07:57)
[2020-09-26] MEDS: Multivitamins,Therapeutic Tablet 1 TABLET PO (07:57)
[2020-09-26 10:00] VITALS: RESP 16
[2020-09-26 13:16] VITALS: BP 108/59; PULSE 64; RESP 15; TEMP 36.1; O2SAT 97
--- NOTE | 2020-09-26 13:41 | MDS.RN ---
Completed pain interview for doe 09/27/20.
--- NOTE | 2020-09-26 14:10 | CASEMGMT ---
Social Work BIMS and PHQ-9 completed for MDS assessment. Lorena Ennis, MIDWIFE AND BIRTH CENTER OWNER ENVIRONMENTAL CONFLICT MANAGER
[2020-09-26] MEDS: Sertraline 100 MG Tablet 200 MG PO (21:48)
[2020-09-26] MEDS: traZODone 100 MG Tablet PO (21:49)
[2020-09-26] MEDS: Pravastatin 40 MG Tablet PO (21:49)
[2020-09-27 05:55] VITALS: BP 134/61; PULSE 66; RESP 16; TEMP 36.6; O2SAT 96
[2020-09-27] MEDS: Clopidogrel Bisulfate 75 MG Tablet PO (05:57)
[2020-09-27] MEDS: Polyethylene Glycol 3350 17 GM PACKET PO (05:57)
[2020-09-27] MEDS: Pantoprazole Sodium 40 MG Tablet PO (05:57)
[2020-09-27] MEDS: Senna/Docusate Sodium 1 Tablet 2 TABLET PO (05:57)
[2020-09-27] MEDS: Gabapentin 300 MG Capsule PO (05:57)
[2020-09-27] MEDS: Isosorbide Mononitrate 30 MG Tablet PO (05:57)
[2020-09-27] MEDS: Aspirin E.C. 81 MG Tablet PO (08:30)
[2020-09-27] MEDS: Multivitamins,Therapeutic Tablet 1 TABLET PO (08:30)
[2020-09-27 13:53] VITALS: BP 115/52; PULSE 59; RESP 16; TEMP 36.4; O2SAT 96
[2020-09-27] MEDS: traZODone 100 MG Tablet PO (20:24)
[2020-09-27] MEDS: Pravastatin 40 MG Tablet PO (20:24)
[2020-09-27] MEDS: Sertraline 100 MG Tablet 200 MG PO (20:24)
[2020-09-27] MEDS: HYDROcodone Bitartrate/Apap 5/325 Tablet PO (20:31)
[2020-09-28 06:00] VITALS: BP 127/77; PULSE 54; RESP 16; TEMP 36.1; O2SAT 94
[2020-09-28] MEDS: Isosorbide Mononitrate 30 MG Tablet PO (06:02)
[2020-09-28] MEDS: Pantoprazole Sodium 40 MG Tablet PO (06:02)
[2020-09-28] MEDS: Gabapentin 300 MG Capsule PO (06:02)
[2020-09-28] MEDS: Clopidogrel Bisulfate 75 MG Tablet PO (06:02)
[2020-09-28 06:35] LABS: Absolute Lymphocyte Count 1.46 X10^3/uL (0.83-4.51); Absolute Neutrophil Count 2.2 X10^3/uL (2.0-7.7); Basophil# 0.02 X10^3/uL; Basophil% 0.5 % (0-1); Eosinophil# 0.23 X10^3/uL; Eosinophils% 5.4 % (0-5); Hematocrit 34.4 % (40-54); Hemoglobin 11.3 g/dL (13.0-16.5); Lymphocyte # 1.46 X10^3/ul (4.0); Lymphocyte % 34.4 % (19-41); Mean Corp Hgb Conc 32.8 g/dL (32-36); Mean Corpuscular Hgb 33.6 pg (27.0-32.0); Mean Corpuscular Volume 102.4 fL (80-94); Mean Platelet Vol. 9.4 fl (6.2-12.0); Monocyte# 0.29 X10^3/uL; Monocyte% 6.8 % (0-10); NRBC Flagged by Analyzer 0 % (0-5); Neutrophil # 2.22 X10^3/uL (2.7-7.7); Neutrophil % 52.4 % (47-70); Platelet Count 159 K/mm3 (150-450); RBC Distribution Width CV 13.3 % (11.6-14.6); RBC Distribution Width SD 50.2 fl (35.1-43.9); Red Blood Count 3.36 M/mm3 (4.6-6.2); White Blood Count 4.2 K/mm3 (4.4-11.0)
[2020-09-28 06:57] LABS: Anion Gap 6 (5-15); BUN 14 mg/dL (7-18); Calcium,Total 8.8 mg/dL (8.5-10.1); Chloride 108 mmol/L (98-107); Creatinine, Serum 1.17 mg/dL (0.70-1.30); EST Glomerular Filtration Rate 64 mL/min (>60); Est Glom Filt Rate - Afr Amer 78 mL/min (>60); Estimated Creatinine Clearance 55.42 ml/min; Glucose 82 mg/dL (74-106); Sodium Level 140 mmol/L (136-145)
[2020-09-28] MEDS: Multivitamins,Therapeutic Tablet 1 TABLET PO (07:49)
[2020-09-28] MEDS: Aspirin E.C. 81 MG Tablet PO (07:49)
[2020-09-28] MEDS: Tuberculin,Purif.prot.deriv. 50 TU/ML Vial 5 ML ID (10:21)
[2020-09-28 14:00] VITALS: BP 134/72; PULSE 61; RESP 16; TEMP 36.3; O2SAT 96
[2020-09-28] MEDS: traZODone 100 MG Tablet PO (20:59)
[2020-09-28] MEDS: Sertraline 100 MG Tablet 200 MG PO (20:59)
[2020-09-28] MEDS: Pravastatin 40 MG Tablet PO (20:59)
[2020-09-29 05:31] VITALS: BP 159/90; PULSE 63; RESP 16; TEMP 36.7; O2SAT 94
[2020-09-29] MEDS: Senna/Docusate Sodium 1 Tablet 2 TABLET PO ×2 (05:32→17:03)
[2020-09-29] MEDS: Isosorbide Mononitrate 30 MG Tablet PO (05:33)
[2020-09-29] MEDS: Pantoprazole Sodium 40 MG Tablet PO (05:33)
[2020-09-29] MEDS: Gabapentin 300 MG Capsule PO (05:33)
[2020-09-29] MEDS: Clopidogrel Bisulfate 75 MG Tablet PO (05:33)
[2020-09-29] MEDS: Multivitamins,Therapeutic Tablet 1 TABLET PO (08:07)
[2020-09-29] MEDS: Aspirin E.C. 81 MG Tablet PO (08:07)
[2020-09-29] MEDS: HYDROcodone Bitartrate/Apap 5/325 Tablet PO (08:10)
[2020-09-29 15:03] VITALS: BP 121/73; PULSE 67; RESP 18; TEMP 36.9; O2SAT 95
[2020-09-29] MEDS: Pravastatin 40 MG Tablet PO (21:06)
[2020-09-29] MEDS: traZODone 100 MG Tablet PO (21:06)
[2020-09-29] MEDS: Sertraline 100 MG Tablet 200 MG PO (21:06)
[2020-09-30 05:08] VITALS: BP 130/77; PULSE 58; RESP 16; TEMP 36.3; O2SAT 96
[2020-09-30] MEDS: Senna/Docusate Sodium 1 Tablet 2 TABLET PO ×2 (05:09→17:24)
[2020-09-30] MEDS: Isosorbide Mononitrate 30 MG Tablet PO (05:09)
[2020-09-30] MEDS: Clopidogrel Bisulfate 75 MG Tablet PO (05:09)
[2020-09-30] MEDS: Pantoprazole Sodium 40 MG Tablet PO (05:09)
[2020-09-30] MEDS: Aspirin E.C. 81 MG Tablet PO (08:21)
[2020-09-30] MEDS: Multivitamins,Therapeutic Tablet 1 TABLET PO (08:21)
[2020-09-30] MEDS: Gabapentin 300 MG Capsule PO (08:21)
[2020-09-30 09:31] VITALS: PULSE 72; O2SAT 97
[2020-09-30 13:22] VITALS: BP 105/53; PULSE 65; RESP 18; TEMP 36.5; O2SAT 96
[2020-09-30] MEDS: Sertraline 100 MG Tablet 200 MG PO (21:44)
[2020-09-30] MEDS: traZODone 100 MG Tablet PO (21:44)
[2020-09-30] MEDS: Pravastatin 40 MG Tablet PO (21:45)
[2020-09-30] MEDS: HYDROcodone Bitartrate/Apap 5/325 Tablet PO (21:45)
[2020-10-01 05:05] VITALS: BP 113/77; PULSE 78; RESP 16; TEMP 36.3; O2SAT 98
[2020-10-01] MEDS: Isosorbide Mononitrate 30 MG Tablet PO (05:05)
[2020-10-01] MEDS: Clopidogrel Bisulfate 75 MG Tablet PO (05:05)
[2020-10-01] MEDS: Senna/Docusate Sodium 1 Tablet 2 TABLET PO (05:05)
[2020-10-01] MEDS: Pantoprazole Sodium 40 MG Tablet PO (05:06)
[2020-10-01] MEDS: Aspirin E.C. 81 MG Tablet PO (07:56)
[2020-10-01] MEDS: Gabapentin 300 MG Capsule PO (07:56)
[2020-10-01] MEDS: Multivitamins,Therapeutic Tablet 1 TABLET PO (07:56)
[2020-10-01 10:00] VITALS: PULSE 66; O2SAT 97
--- NOTE | 2020-10-01 12:00 | CASEMGMT ---
Social Work Insurance issued LCD 10/03, DC 10/04. Spoke with pt. Pt agreeable. Provided [facility] list of in network and in geographical area. Pt prefers [facility]. Referral made for PT/OT/ST. Pt requesting 3-in-1 commode, FWW and half bed rail. Referred to [facility] for BSC, FWW and [facility] for bed rail. Family can transport pt. No other issues. Plan: DC home with family 10/04 with [facility] PT/OT/ST, [facility] - FWW, BSC, [facility] - half bed rail Lorena Ennis, ICU SPECIALIST ACETALDEHYDE CONVERTER OPERATOR
[2020-10-01 14:15] VITALS: BP 135/56; PULSE 68; RESP 17; TEMP 36.4; O2SAT 95
--- NOTE | 2020-10-01 16:07 | DCINST_ITS ---
- Discharge Diagnoses Current Active Problems: Current Active and Chronic Problems (Last Reviewed 09/19/20 @ 06:[address] Elmo Blount MD) Debility (Acute) Urinary tract infection (Acute) Low back pain (Acute) Elevated liver enzymes (Acute) Coronary artery disease (Chronic) Hypertension (Chronic) Depression (Chronic) Sleep apnea (Chronic) GERD (gastroesophageal reflux disease) (Chronic) Neuropathic pain (Chronic) Chronic pain (Chronic) Insomnia (Chronic) Hyperlipidemia (Chronic) You will use the following diet at home:: No restrictions, Regular Your food should be the consistency of: Regular Your liquids should be the consistency of: Regular/Thin Discharge Activity: Return to Normal Activity, May Shower, Use Walker Weight Bearing Status: Weight bearing as tolerated Call your doctor if you observe: Fever of 101 or Higher, Inability to urinate, Inability to have a bowel movement, Chest pain, Uncontrolled pain Allergies/Adverse Reactions: Allergies codeine Allergy (Verified 09/18/20 21:03) Unknown Medications to take at Discharge Pravastatin [Pravachol] 40 mg PO QHS 02/05/14 Aspirin E.C. [Ecotrin] 81 mg PO DAILY@0800 02/06/14 Omeprazole [Prilosec] 40 mg PO DAILY 05/13/14 gabapentin 300 mg capsule 300 mg PO DAILY 01/30/19 hydrocodone 7.5 mg-acetaminophen 300 mg tablet 1 tab PO BID PRN tab 01/30/19 sertraline 100 mg tablet 2 tab PO QHS tab 01/30/19 trazodone 100 mg tablet 100 mg PO QHS tab 09/06/19 nitroglycerin 0.4 mg sublingual tablet 0.4 mg SUBLINGUAL Q5M PRN #25 tab 03/04/20 Clopidogrel Bisulfate [Plavix] 75 mg PO DAILY 09/20/20 Isosorbide Mononitrate [Isosorbide Mononitrate ER] 30 mg PO QAM 09/20/20 Multivitamins,Therapeutic [Multivitamin] 1 tab PO DAILYCM 09/20/20 Primary Care Physician: Josi Moreira DO [Primary Care Provider] - Please follow up with your Primary Care Physician in: 1 week. Test Results: Test results from this visit will be discussed in further detail at your follow- up appointment, if applicable. Proposed Discharge Date: 10/04/20
--- NOTE | 2020-10-01 16:09 | PCM.DC.SUM ---
Discharge Date and Diagnosis - Problem List Patient Problems: Active and Suspected Problems (Last Reviewed 09/19/20 @ 06:[address] Elmo Blount MD) Debility (Acute) Urinary tract infection (Acute) Low back pain (Acute) Elevated liver enzymes (Acute) Date of Admission: 09/20/20 Date of Discharge: 10/04/20 - Primary Discharge Diagnosis Acute Problems: Active Problems (Last Reviewed 09/19/20 @ 06:[address] Elmo Blount MD) Debility (Acute) Urinary tract infection (Acute) Low back pain (Acute) Elevated liver enzymes (Acute) - Secondary Discharge Diagnosis Chronic Problems: Chronic Problems (Last Reviewed 09/19/20 @ 06:[address] Elmo Blount MD) Coronary artery disease (Chronic) Hypertension (Chronic) Depression (Chronic) Sleep apnea (Chronic) GERD (gastroesophageal reflux disease) (Chronic) Neuropathic pain (Chronic) Chronic pain (Chronic) Insomnia (Chronic) Atherosclerotic heart disease of [place] coronary artery with other forms of angina pectoris (Chronic) [id number]-Sebzr w/ 3.0 x 12 mm Xience Xpedition Stent and HLM-Vwlz-Lbt RCA w/ 2.75 x 38 mm Xience Xpedition Stent 01/2014 History of coronary artery stent placement (Chronic 02/12/14) [id number]-LKJ-Glhfe w/ 3.0 x 12 mm Xience Xpedition Stent and MJM-Phns-Oyw RCA w/ 2.75 x 38 mm Xience Xpedition Stent 01/2014 Essential (primary) hypertension (Chronic) Hyperlipidemia (Chronic) Hospital Course and Treatment Imaging Results: 09/20/20 15:38 Diet: Regular - General Food consistency:: Regular Liquid Consistency:: Regular/Thin Is pt able to select menu?: Yes Microbiology 09/29/20 10:35 Nasal Secretion SARS-CoV-2 Antigen (Rapid) - Final Operations: None Procedures: None Summary of Care Provided: The patient is a 80 year old Male with below past medical history hospitalized for urinary tract infection, fall, complicated by elevated liver enzymes, admitted to TCU with debility, here for rehabilitation, strengthening, prior to discharge home with . Discharge to Home with family, [facility] PT/OT/ST. [place] Front wheeled walker, Bedside commode; [facility] [place] Half bed rail. Patient Problems: Active and Suspected Problems (Last Reviewed 09/19/20 @ 06:[address] Elmo Blount MD) Debility (Acute) Urinary tract infection (Acute) Low back pain (Acute) Elevated liver enzymes (Acute) - Physical Exam Vitals/I&O's: Vital Signs Temp Pulse Resp BP Pulse Ox 97.6 F L 68 17 135/56 H 95 10/01/20 14:15 10/01/20 14:15 10/01/20 14:15 10/01/20 14:15 10/01/20 14:15 Oxygen Flow Rate (L/min) 1 Oxygen Delivery Method Room Air Weight: 95.878 kg Body Mass Index (BMI) 29.4 Intake and Output for Last 24 Hours 09/29/20 09/30/20 10/01/20 23:59 23:59 23:59 Intake Total 600 / 600 680 / 680 480 / 480 Balance 600 / 600 680 / 680 480 / 480 Microbiology Past 72 Hours 09/29/20 10:35 Nasal Secretion SARS-CoV-2 Antigen (Rapid) - Final Current Medications Hydrocodone Bitart/Acetaminophen (Hydrocodone Bitartrate/Apap 5/325 Tablet) 1.5 tablet PO BID PRN PRN PRN Reason: Pain Score 1-10 Last Admin: 09/30/20 21:45 Dose: 1.5 tablet Documented by: Aspirin (Aspirin E.C. 81 Mg Tablet) 81 mg PO DAILY@0800 [facility] Last Admin: 10/01/20 07:56 Dose: 81 mg Documented by: Bisacodyl (Bisacodyl 10 Mg Suppository) 10 mg RECTAL DAILY PRN PRN Reason: Constipation Clopidogrel Bisulfate (Clopidogrel Bisulfate 75 Mg Tablet) 75 mg PO DAILY [facility] Last Admin: 10/01/20 05:05 Dose: 75 mg Documented by: Gabapentin ([facility] 300 Mg [facility]apsule) [facility] Admin: 10/01/20 07:56 Dose: 300 mg Documented by: Isosorbide Mononitrate (Isosorbide Mononitrate 30 Mg Tablet) 30 mg PO DAILY [facility] Last Admin: 10/01/20 05:05 Dose: 30 mg Documented by: Magnesium Hydroxide (Magnesium Hydroxide 30 Ml Udc) 30 ml PO DAILY PRN PRN Reason: Constipation Multivitamins ([facility]ivitamins,Therapeutic Tablet) [facility] Admin: 10/01/20 07:56 Dose: 1 tablet Documented by: Nitroglycerin (Nitroglycerin (Inpatient Use) 0.4 Mg Tab.Subl) 0.4 mg SUBLINGUAL Q5M PRN PRN Reason: Angina Ondansetron HCl (Ondansetron Odt 4 Mg Tablet) 4 mg PO Q8H PRN PRN PRN Reason: NAUSEA/VOMITING Last Admin: 09/21/20 08:45 Dose: 4 mg Documented by: Pantoprazole Sodium (Pantoprazole Sodium 40 Mg Tablet) 40 mg PO DAILY [facility] Last Admin: 10/01/20 05:06 Dose: 40 mg Documented by: Polyethylene Glycol (Polyethylene Glycol 3350 17 Gm Packet) 17 gm PO DAILY PRN PRN PRN Reason: Constipation Pravastatin Sodium (Pravastatin 40 Mg Tablet) 40 mg PO QHS [facility] Last Admin: 09/30/20 21:45 Dose: 40 mg Documented by: Senna/Docusate Sodium (Senna/Docusate Sodium 1 Tablet) 2 tablet PO BID [facility] Last Admin: 10/01/20 05:05 Dose: 2 tablet Documented by: Sertraline HCl (Sertraline 100 Mg Tablet) 200 mg PO QHS [facility] Last Admin: 09/30/20 21:44 Dose: 200 mg Documented by: Trazodone HCl (Trazodone 100 Mg Tablet) 100 mg PO QHS [facility] Last Admin: 09/30/20 21:44 Dose: 100 mg Documented by: Discharge Diet: No Restrictions Discharge Activity: Return to Normal Activity, May Shower, Use Walker Weight Bearing Status: Weight bearing as tolerated Call your doctor if you observe: Fever of 101 or Higher, Inability to urinate, Inability to have a bowel movement, Chest pain, Uncontrolled pain Home Medications: Medications to take at Discharge Pravastatin [Pravachol] 40 mg PO QHS 02/05/14 Aspirin E.C. [Ecotrin] 81 mg PO DAILY@0800 02/06/14 Omeprazole [Prilosec] 40 mg PO DAILY 05/13/14 gabapentin 300 mg capsule 300 mg PO DAILY 01/30/19 hydrocodone 7.5 mg-acetaminophen 300 mg tablet 1 tab PO BID PRN tab 01/30/19 sertraline 100 mg tablet 2 tab PO QHS tab 01/30/19 trazodone 100 mg tablet 100 mg PO QHS tab 09/06/19 nitroglycerin 0.4 mg sublingual tablet 0.4 mg SUBLINGUAL Q5M PRN #25 tab 03/04/20 Clopidogrel Bisulfate [Plavix] 75 mg PO DAILY 09/20/20 Isosorbide Mononitrate [Isosorbide Mononitrate ER] 30 mg PO QAM 09/20/20 Multivitamins,Therapeutic [Multivitamin] 1 tab PO DAILYCM 09/20/20 Primary Care Physician: Josi Moreira DO [Primary Care Provider] - Please follow up with your Primary Care Physician in: 1 week. Disposition: Home with Home Health Minutes spent on discharge:: 35 Patient Condition:: Stable Medical Necessity - Tobacco Use Smoking Status: Former smoker Tobacco Use: Non-smoker Meaningful Use Info Meaningful Use Diagnoses (Choose all that apply): None applicable
[2020-10-01] MEDS: Pravastatin 40 MG Tablet PO (22:13)
[2020-10-01] MEDS: Sertraline 100 MG Tablet 200 MG PO (22:13)
[2020-10-01] MEDS: traZODone 100 MG Tablet PO (22:14)
[2020-10-02 06:39] VITALS: BP 142/78; PULSE 62; RESP 18; TEMP 36.4; O2SAT 98
[2020-10-02] MEDS: Isosorbide Mononitrate 30 MG Tablet PO (06:44)
[2020-10-02] MEDS: Pantoprazole Sodium 40 MG Tablet PO (06:44)
[2020-10-02] MEDS: Clopidogrel Bisulfate 75 MG Tablet PO (06:44)
[2020-10-02] MEDS: Gabapentin 300 MG Capsule PO (08:04)
[2020-10-02] MEDS: Multivitamins,Therapeutic Tablet 1 TABLET PO (08:04)
[2020-10-02] MEDS: Aspirin E.C. 81 MG Tablet PO (08:04)
[2020-10-02 14:22] VITALS: BP 112/59; PULSE 63; RESP 16; TEMP 36.2; O2SAT 94
[2020-10-02] MEDS: Sertraline 100 MG Tablet 200 MG PO (21:25)
[2020-10-02] MEDS: traZODone 100 MG Tablet PO (21:25)
[2020-10-02] MEDS: Pravastatin 40 MG Tablet PO (21:25)
[2020-10-03 05:50] VITALS: BP 119/61; PULSE 64; RESP 16; TEMP 36.3; O2SAT 97
[2020-10-03] MEDS: Pantoprazole Sodium 40 MG Tablet PO (05:52)
[2020-10-03] MEDS: Isosorbide Mononitrate 30 MG Tablet PO (05:52)
[2020-10-03] MEDS: Clopidogrel Bisulfate 75 MG Tablet PO (05:52)
[2020-10-03] MEDS: Aspirin E.C. 81 MG Tablet PO (08:08)
[2020-10-03] MEDS: Gabapentin 300 MG Capsule PO (08:08)
[2020-10-03] MEDS: Multivitamins,Therapeutic Tablet 1 TABLET PO (08:08)
--- NOTE | 2020-10-03 08:29 | MDS.RN ---
Information for the mds was obtained from review of the clinical record, interview of resident, staff, and direct observation of resident's care.
--- NOTE | 2020-10-03 13:42 | MDS.RN ---
Completed pain interview for YUNIOR 10/04/20
[2020-10-03 14:05] VITALS: BP 105/61; PULSE 69; RESP 16; TEMP 36.4; O2SAT 96
--- NOTE | 2020-10-03 14:11 | CASEMGMT ---
Social Work BIMS and PHQ-9 completed for MDS assessment. Lorena Ennis, LIFE INSURANCE AGENT BUTTON FACING MACHINE OPERATOR
[2020-10-03] MEDS: Pravastatin 40 MG Tablet PO (21:04)
[2020-10-03] MEDS: Sertraline 100 MG Tablet 200 MG PO (21:04)
[2020-10-03] MEDS: traZODone 100 MG Tablet PO (21:04)
[2020-10-04 05:21] VITALS: BP 119/78; PULSE 69; RESP 16; TEMP 36.8; O2SAT 95
[2020-10-04] MEDS: Pantoprazole Sodium 40 MG Tablet PO (05:22)
[2020-10-04] MEDS: Senna/Docusate Sodium 1 Tablet 2 TABLET PO (05:22)
[2020-10-04] MEDS: Clopidogrel Bisulfate 75 MG Tablet PO (05:23)
[2020-10-04] MEDS: Isosorbide Mononitrate 30 MG Tablet PO (05:23)
[2020-10-04] MEDS: Multivitamins,Therapeutic Tablet 1 TABLET PO (07:51)
[2020-10-04] MEDS: Aspirin E.C. 81 MG Tablet PO (07:51)
[2020-10-04] MEDS: Gabapentin 300 MG Capsule PO (07:51)
[2020-10-04] MEDS: HYDROcodone Bitartrate/Apap 5/325 Tablet PO (07:55)
[2020-10-04 10:00] VITALS: PULSE 74; RESP 16; O2SAT 96
== END 2020-10-04 11:00 | disposition home health service (06) | DRG 690 ==
PROVIDERS: Admitting Provider Family Medicine Geriatric Medicine; PCP Internal Medicine; Visit Provider Family Medicine Geriatric Medicine
DX: N39.0 Urinary tract infection, site not specified (principal); K21.9 Gastro-esophageal reflux disease without esophagitis; E78.5 Hyperlipidemia, unspecified; Z23 Encounter for immunization; F32.9 Major depressive disorder, single episode, unspecified; I25.10 Atherosclerotic heart disease of native coronary artery without angina pectoris; I10 Essential (primary) hypertension; G89.29 Other chronic pain; G47.33 Obstructive sleep apnea (adult) (pediatric); F41.9 Anxiety disorder, unspecified; Z87.891 Personal history of nicotine dependence; Z91.81 History of falling
CPT/HCPCS: 36415; 80048; 85025; 87426; 87635; 92507; 92524; 97110; 97116; 97150; 97162; 97166; 97530; 97535; 97802; G0008; U0005; 90686; U0003

== ENCOUNTER → 2020-11-26 15:50 | Outpatient (CLI) | payer MEDICARE, SELFPAY ==
[2020-11-03 14:41] VITALS: BMI 29.7
[2020-11-26 17:17] LABS: Amphetamine Urine VISTA NEGATIVE (<1000 ng/mL); Barbiturate Urine VISTA NEGATIVE (< 200 ng/mL); Benzodiazepine Urine VISTA POSITIVE (< 200 ng/mL); Cocaine Urine VISTA NEGATIVE (< 300 ng/mL); Ecstacy Urine VISTA POSITIVE (< 500 ng/mL); Methadone Urine VISTA NEGATIVE (< 300 ng/mL); PCP Urine VISTA NEGATIVE (< 25 ng/mL); THC Urine VISTA NEGATIVE (< 50 ng/mL); Vista UDS pH Range 5
== END ==
PROVIDERS: PCP Internal Medicine; Referring Provider Anesthesiology Pain Medicine; Visit Provider Anesthesiology Pain Medicine
DX: F11.20 Opioid dependence, uncomplicated (principal)
CPT/HCPCS: 80307

== ENCOUNTER → 2020-12-18 07:16 | Outpatient (CLI) | payer MEDICARE, SELFPAY ==
[2020-11-03 14:41] VITALS: BMI 29.7
--- NOTE | 2020-12-18 07:27 | MRI_ITS ---
STUDY: MRI BRAIN WITHOUT CONTRAST REASON FOR EXAM: Male, 80 years old. ATAXIA TECHNIQUE: Standardized multiplanar fat and water weighted pulse sequences were obtained. COMPARISON: CT 09/18/2020, MRI 02/06/2014 FINDINGS: There is moderate cerebral atrophy with widening of the extra-axial spaces and ventricular dilatation. There are multiple white matter hyperintensities, distributed throughout the deep white matter tracts of the cerebral hemispheres, consistent with moderate chronic white matter ischemic changes. There is no evidence for recent intracranial ischemia or other cause of cytotoxic edema on diffusion weighted imaging (DWI). Normal T2* images of the brain without demonstrated susceptibility artifact. There is no demonstrated hemosiderin stain. Normal bilateral basal ganglia. Normal thalami. There is no change in a 2 cm arachnoid cyst in the inferior aspect of the left posterior fossa. Normal flow voids within the major intracranial circulation suggesting patency by spin echo criteria. Normal sella turcica, pituitary gland, infundibular stalk, optic chiasm and hypothalamus. Normal tectal plate and pineal gland. Normal midbrain, linda and medulla. Normal cerebellum. Normal basal cisterns. Normal bilateral temporal bones. Normal bilateral internal auditory canals. No demonstrated orbital abnormality, within the constraints of a routine brain study. Normal visualized paranasal sinuses. Normal calvarium and skull base. Normal visualized soft tissue structures. Normal visualized upper cervical spine. MRI/Brain without Contrast IMPRESSION: Involutional changes of the brain, as described above. No acute infarct. Electronically Signed: David Roberts MD at 9:12 EDT Tel , Service support ,
--- NOTE | 2020-12-18 08:35 | RAD_ITS ---
STUDY: X-RAY - ESOPHAGUS (BARIUM SWALLOW) WITH FLUOROSCOPY REASON FOR EXAM: Male, 80 years old. DYSPHAGIA TECHNIQUE: 19 view(s) of the esophagus were obtained following swallowing of barium. FLUOROSCOPY TIME (if supplied): (53 seconds) minutes/seconds COMPARISON: None. FINDINGS: There is no demonstrated esophageal foreign body. There is no demonstrated stricture or mucosal abnormality. Normal gastroesophageal junction, without a demonstrated hiatal hernia. The patient ingested a 12 mm tablet of barium. The tablet is trapped at the gastroesophageal junction. Diverticula are seen in the second and third portions of the duodenum. There is atherosclerotic calcification of the aortic arch with tortuosity of the descending aorta. Normal visualized pulmonary parenchyma. Prior multilevel vertebral kyphoplasty. RAD/Esophagus Dual Contrast IMPRESSION: The 12 mm tablet of barium is trapped at the gastroesophageal junction. Duodenal diverticula. Electronically Signed: Rai Scott MD at 12:25 EDT , Service support ,
== END ==
PROVIDERS: PCP Internal Medicine; Referring Provider Internal Medicine; Visit Provider Internal Medicine
DX: R27.0 Ataxia, unspecified (principal); R13.10 Dysphagia, unspecified
CPT/HCPCS: 70551; 74221

== ENCOUNTER → 2021-01-28 13:16 | Outpatient (CLI) | payer MEDICARE, SELFPAY ==
[2020-11-03 14:41] VITALS: BMI 29.7
--- NOTE | 2021-01-28 13:40 | RAD_ITS ---
INDICATION: BACK PAIN EXAMINATION/TECHNIQUE: X-RAY - XR Spine Thoracic 3 Views COMPARISON: 09/18/2020 FINDINGS: VERTEBRAE: Multilevel vertebral augmentation. No acute fracture. No spondylolisthesis. Exaggerated normal thoracic kyphosis. Anterior fusion hardware of the lower cervical spine. There are flowing anterior ossifications of several contiguous thoracic vertebral bodies. DISCS: Moderate multilevel degenerative disc disease and spondylosis. INCLUDED CHEST/ABDOMEN: No acute abnormalities. RAD/Thoracic Spine 3 Views IMPRESSION: No evidence of acute thoracic spinal fracture or spondylolisthesis. Multilevel vertebral augmentation. Moderate multilevel degenerative disc disease and spondylosis. Diffuse idiopathic skeletal hyperostosis (DISH). Electronically Signed: Linus Raymond MD at 21:46 EDT Tel , Service support ,
== END ==
PROVIDERS: PCP Internal Medicine; Referring Provider Anesthesiology Pain Medicine; Visit Provider Anesthesiology Pain Medicine
DX: M54.6 Pain in thoracic spine (principal)
CPT/HCPCS: 72072

== ENCOUNTER → 2021-05-20 06:10 | Outpatient (CLI) | payer MEDICARE, SELFPAY ==
--- NOTE | 2021-05-20 13:31 | STRESSREP_ITS ---
Stress Test Report Pharmacologic myocardial perfusion stress test. 80-year-old man with a history of chest pain. Stress protocol: Resting KG demonstrates sinus bradycardia with a rate of 54 bpm normal intervals are noted. 0.4 mg of regadenoson was infused per usual protocol followed by rapid intravenous saline flush injection continuous EKG monitoring was pe rformed. The maximum heart rate attained was noted to be 86 bpm which was 60% of max infected heart rate the maximum workload was 1 metabolic equivalent. At rest there were no ST or T wave changes noted to suggest abnormal flow reserve and at peak infusion nonspecific ST changes were noted with did not meet the criteria for ischemia. No clinical angina was noted. The final blood pressure was 118/72 mmHg. Myocardial perfusion protocol. 14.5 mCi of technetium 99m sestamibi was injected at rest. 0.4 mg of regadenoson was infused per usual protocol. At peak infusion 44.8 mCi of technetium 99m sestamibi was injected stress images were obtained stress and rest images were reconstructed and compared in the short axis vertical long and horizontal long axis. Perfusion SPECT analysis: Review of the stress images demonstrate normal uptake of tracer noted in all areas of the myocardium except for the inferior wall which appears to have a moderate size area of reduced perfusion. This is present on the stress and resting images to a similar extent suggesting a previous inferior infarct. No areas of improvement are noted to suggest reversibility or ischemia. Gated SPECT images. The gated images were not obtained. 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
== END ==
PROVIDERS: PCP Internal Medicine; Referring Provider Nurse Practitioner Gerontology; Visit Provider Nurse Practitioner Gerontology
DX: R07.9 Chest pain, unspecified (principal)
CPT/HCPCS: 78452; 93017; A9500; A4216; J2785

== ENCOUNTER 2021-07-18 15:05 | Observation (INO) | payer MEDICARE, SELFPAY ==
[2021-07-18 15:06] VITALS: BP 122/62; PULSE 64; RESP 18; TEMP 36; O2SAT 98; BMI 29.2
--- NOTE | 2021-07-18 15:18 | CT_ITS ---
STUDY: CT ABDOMEN AND PELVIS WITHOUT CONTRAST REASON FOR EXAM: Male, 81 years old. Left flank pain prior surgeries RADIATION DOSAGE (If Supplied By Facility): CTDIvol = ( 14.10 ) mGy, DLP = ( 852.80 ) mGycm TECHNIQUE: Transaxial images were obtained from the dome of the diaphragm to the symphysis pubis without oral contrast, and without intravenous contrast. Sagittal and coronal images were reconstructed. Individualized dose optimization techniques were used for this CT. COMPARISON: None. FINDINGS: There is bilateral basal scarring or atelectasis. Coronary arteries are severely diseased. Aortic valve is at least moderately stenotic. Normal liver. Gallbladder is removed. Normal spleen. Normal pancreas. Normal bilateral adrenal glands. Normal right kidney. Normal left kidney. There is no intestinal obstruction. Appendix is removed. There is no perienteric inflammation. Normal abdominal aorta. Normal inferior vena cava. Normal retroperitoneum. Normal urinary bladder. Penile prosthesis reservoir is located in the left prevesical space. Normal abdominal wall. There is diffuse spinal idiopathic skeletal hyperostosis related to age-related degeneration and T9 and T10 cement kyphoplasty''s. There are minor ill-defined prevertebral space inflammatory changes. There are no findings of discitis/osteomyelitis on CT. CT/Abdomen/Pelvis without Cont IMPRESSION: 1. Nonspecific ventral paraspinous space inflammation without definite source. Consider MR of the lumbar spine with and without contrast for detection of possible early spinal infection. 2. Otherwise no acute abdominal abnormality. 3. Extensive cardiac disease, severe coronary artery disease. 4. Aortic valve stenosis, cardiology referral advised. Electronically Signed: Vy Galvan MD at 16:40 EST Tel , Service support ,
--- NOTE | 2021-07-18 15:19 | EX.ED.DYSGE1 ---
HPI History of Present Illness Chief Complaint: Flank Pain Detail of Chief Complaint: Pain and back pain Informant: patient Onset/Context/Timing Current Severity: 05/08 Narrative Narrative: Patient presents to the emergency department complaint of pain in his back that initially started 3 weeks ago on the right side. Patient states yesterday the pain started moved to the left side and the pain seems to radiate to the left lower abdomen. He has had no fever. He denies nausea or vomiting. He denies blood in stool or black tarry stool. Pain worse with movement at times. He rates his pain a 9 out of 10. He denies pain rating down the legs or paresthesias. He denies weakness in extremities. He denies change in bowel or bladder function. Patient denies urinary symptoms. He he denies fever or recent illness. Patient denies any falls or trauma to his back. [facility] Medical History (Updated 07/18/21 @ 19:[address] 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 Chronic pain Chronic pain Cystitis DDD (degenerative disc disease), cervical DDD (degenerative disc disease), lumbar Debility Depression Elevated liver enzymes Essential (primary) hypertension GERD (gastroesophageal reflux disease) Hemorrhoids Hemorrhoids that prolapse with straining, but retract spontaneously Hyperlipidemia Insomnia Labile blood pressure Low back pain Neuropathic pain Obstructive sleep apnea Orthostatic hypotension Pain Physical debility Urinary tract infection Home Medications pravastatin 40 mg PO QHS 02/05/14 [History Last Taken 02/05/14 22:50 40 mg] aspirin 81 mg PO DAILY@0800 02/06/14 [History Last Taken 10/17/19] omeprazole 40 mg PO DAILY 05/13/14 [History Last Taken 06/08/19 08:15] gabapentin 300 mg capsule 300 mg PO DAILY 01/30/19 [History Last Taken Unknown] clopidogrel 75 mg PO DAILY 09/20/20 [History Last Taken Unknown] multivitamin 1 tab PO DAILYCM 09/20/20 [History Last Taken Unknown] docusate sodium 100 mg capsule 100 mg PO BID 10/23/20 [History Last Taken Unknown] ascorbate calcium (vitamin C) 500 mg tablet 500 mg PO DAILY 04/23/21 [History Last Taken Unknown] d-mannose 500 mg capsule 2,100 mg PO DAILY 04/23/21 [History Last Taken Unknown] hydrocodone 10 mg-acetaminophen 325 mg tablet 1 tab PO BID PRN 04/23/21 [History Last Taken Unknown] doxazosin 1 mg PO QHS 07/18/21 [History Last Taken Unknown] Allergy/AdvReac Type Severity Reaction Status Date / Time codeine Allergy Unknown Verified 07/18/21 15:06 Family History (Reviewed 04/23/21 @ 13:34 by Judith Rapp [employer], [employer] AND [employer]ALMER-C) Father CVA (cerebral vascular accident) Brother Hypertension CVA (cerebral vascular accident) Mother Cancer leukemia Surgical History History of appendectomy History of back surgery History of coronary artery stent placement (02/12/14) History of kyphoplasty History of left heart catheterization (05/13/14) Hx of cholecystectomy S/P tendon repair Social History Smoking Status: Former smoker how long ago did patient quit smokin years ago alcohol intake: former details: quit 50 years ago substance use type: does not use caffeine: Yes Type: carbonated beverages Number of servings: 2 what type of physical activity do you participate in: walking frequency: 3-4 times per week duration: < 15 minutes/day seatbelt use: always do you feel safe at home: Yes ROS ROS ED Constitutional Constitutional ED: Reports systems reviewed and no addt'l complaints, except as documented; Denies body ache(s), change in weight or chills Eyes Eyes: Denies acute decrease in peripheral vision, change in vision, double vision or loss of vision ENT ENT ED: Reports none; Denies ear pain, lip swelling, loss taste/smell, neck pain, otalgia or sore throat Cardiovascular Cardiovascular: Reports none; Denies abdominal pain, chest pain with activity, leg edema, lightheadedness, palpitations, rapid heart rate or syncope Respiratory/Chest Respiratory/Chest: Reports none; Denies change in mental status, dry cough, dyspnea, hemoptysis, shortness of breath at rest or shortness of breath with exertion Gastrointestinal Gastrointestinal: Reports none and abdominal pain; Denies change in stool character, diarrhea, hematemesis, hematochezia, melena, rectal bleeding or vomiting Genitourinary Genitourinary ED: Reports none; Denies abdominal discomfort, anuria, dysuria, genital pain or polyuria Musculoskeletal Musculoskeletal: Reports none and back pain; Denies arthralgias, difficulty walking, extremity pain, muscle weakness or myalgias Integumentary Reports none; Denies abscess or rash Neurologic Neurologic: Reports none; Denies abnormal gait, confusion, focal weakness, frequent falls, headache(s), loss of vision, numbness, paresthesias, radicular pain, vertigo or weakness Psychiatric Psychiatric: Reports systems reviewed and no addt'l complaints, except as documented and none; Denies behavioral changes, confusion, difficulty concentrating, hallucinations, suicidal ideation, tactile hallucinations or visual hallucinations Endocrine Endocrinology: Denies none, cold intolerance, excessive sweating, fatigue or heat intolerance Hematologic/Lymphatic Hematologic/Lymphatic: Reports none; Denies anemia, easy bleeding or easy bruising Allergic/Immunologic Allergic/Immunologic ED: Denies as per HPI, none, lip swelling, mouth swelling, throat swelling, tongue swelling or hives EXAM Physical Exam Const Vital Signs: 07/18/21 15:06 07/18/21 16:15 07/18/21 19:17 Temperature 96.8 F L Temperature Source Temporal Pulse Rate 64 57 L 67 Respiratory Rate 18 16 16 Blood Pressure 122/62 H 118/68 138/81 H Blood Pressure Mean 82 84 100 Pulse Ox 98 Oxygen Delivery Method Room Air Positive well nourished and well developed General Appearance ED: well developed and NAD HEENT Reports TM's clear and moist mucous membranes normocephalic and atraumatic; Negative for trauma or tenderness Tympanic Membrane ED: Yes TM's clear Eyes PERRL and EOMs intact bilaterally General Eye ED: Negative for pale conjunctiva or scleral icterus Neck no lymphadenopathy, supple and no JVD General: Negative for tenderness Chest Wall inspection of chest normal and palpation of chest normal Chest: Negative for tenderness Resp normal respiratory effort and clear to auscultation bilaterally Effort and Inspection: Negative for respiratory distress or pain with movement Auscultation: Negative for rhonchi, wheezes or diminished lung sounds Cardio regular rate, regular rhythm, S1 normal heart sound, S2 normal heart sound and no murmurs Peripheral Pulses: pulses 2+ throughout GI normal to inspection, nondistended, normoactive bowel sounds, soft to palpation, non-distended and no masses GI Narrative: Patient has tenderness palpation diffusely over the abdomen but more specifically over the left lower quadrant and left upper quadrant. There is guarding. There is no rebound or rigidity. Palpation: soft Back/Spine no thoracic nor lumbar tenderness Back/Spine Narrative: Is palpation over the lumbar spine as well as the left lumbar paraspinal musculature. He has CVA tenderness. He has negative straight leg raises. Deep tendon reflexes are plus out of 4 bilaterally at the patella and Achilles. Patient has normal L5 extension. Extremity normal to inspection General Extremety ED: Negative for edema General Extremity: Negative for edema Neuro oriented x3, CN's II-XII intact bilaterally, no sensory deficits noted and gait normal Sensorium / Orientation: awake, alert, oriented to person, oriented to place and oriented to time Motor Exam: strength 5/5 throughout and strength abnormal Psych mental status grossly normal Skin no rashes or lesions noted and no wounds MDM MDM MDM Narrative Medical decision making narrative: IV line established on arrival. Patient was medicated with morphine and Zofran initially. He continued to complain of pain and was given a second dose of morphine and Zofran. MRI of the back was obtained after CT scan showed changes in the lumbar spine area concerning for infection. MRI was read by radiology as no evidence of spinal infection and there was abnormal upper perivascular retroperitoneal soft tissue and the differential diagnosis would include retroperitoneal fibrosis, inflammatory periaortitis, lymphoma, less likely retroperitoneal amyloidosis. At this point Case will be discussed with hospitalist to evaluate patient for admission for intractable back pain. Lab Data Attestation: I reviewed the patient's lab results. Labs: Laboratory Results - last 24 hr 07/18/21 07/18/21 07/18/21 15:30 15:30 15:30 WBC 5.6 RBC 3.28 L Hgb 11.3 L Hct 33.9 L MCV 103.4 H MCH 34.5 H MCHC 33.3 RDW Std Deviation 51.7 H RDW Coeff of [place] 13.4 Plt Count 108 L MPV 11.3 Immature Gran % (Auto) 0.400 Neut % (Auto) 63.6 Lymph % (Auto) 21.5 [place] % (Auto) 10.5 H Eos % (Auto) 3.6 Baso % (Auto) 0.4 Absolute Neuts (auto) 3.6 Absolute Lymphs (auto) 1.21 Nucleated RBC % 0 Sodium 140 Potassium 3.8 Chloride 108 H Carbon Dioxide 29.0 Anion Gap 3 L BUN 16 Creatinine 1.00 Estim Creat Clear Calc 63.80 Est GFR (MDRD) Af Amer 93 Est GFR (MDRD) Non-Af 77 BUN/Creatinine Ratio 16.0 Glucose 111 H Lactic Acid 1.3 Calcium 8.6 Urine Color Urine Clarity Urine pH Ur Specific [place] Urine Protein Urine Glucose (UA) Urine Ketones Urine Occult Blood Urine Nitrite Urine Bilirubin Urine Urobilinogen Ur Leukocyte Esterase Urine RBC Urine WBC Ur Squamous Epith Cells Amorphous Sediment Urine Bacteria Urine Mucus 07/18/21 16:30 WBC RBC Hgb Hct MCV MCH MCHC RDW Std Deviation RDW Coeff of [place] Plt Count MPV Immature Gran % (Auto) Neut % (Auto) Lymph % (Auto) [place] % (Auto) Eos % (Auto) Baso % (Auto) Absolute Neuts (auto) Absolute Lymphs (auto) Nucleated RBC % Sodium Potassium Chloride Carbon Dioxide Anion Gap BUN Creatinine Estim Creat Clear Calc Est GFR (MDRD) Af Amer Est GFR (MDRD) Non-Af BUN/Creatinine Ratio Glucose Lactic Acid Calcium Urine Color YELLOW Urine Clarity Sl. Cloudy Urine pH 5.0 Ur Specific [place] 1.025 Urine Protein 15 H Urine Glucose (UA) Normal Urine Ketones Negative Urine Occult Blood Negative Urine Nitrite Negative Urine Bilirubin Negative Urine Urobilinogen 1 H Ur Leukocyte Esterase 100 H Urine RBC 0-5 SEEN Urine WBC 5-10 SEEN Ur Squamous Epith Cells 0-5 SEEN Amorphous Sediment 1+ URATE Urine Bacteria 0 SEEN Urine Mucus 0 SEEN Radiography Diagnostic Testing: Clinical Impression(s) from Imaging Studies Abdomen/Pelvis CT 07/18/21 15:18 IMPRESSION: 1. Nonspecific ventral paraspinous space inflammation without definite source. Consider MR of the lumbar spine with and without contrast for detection of possible early spinal infection. 2. Otherwise no acute abdominal abnormality. 3. Extensive cardiac disease, severe coronary artery disease. 4. Aortic valve stenosis, cardiology referral advised. Electronically Signed: Vy Galvan MD at 16:40 EST Tel , Service support , Lumbar Spine MRI 07/18/21 17:53 IMPRESSION: 1. No spinal infection. 2. Abnormal upper perivascular retroperitoneal soft tissue. Differential diagnosis is early retroperitoneal fibrosis, inflammatory radhames-aortitis, lymphoma, less likely retroperitoneal amyloidosis. Electronically Signed: Vy Galvan MD at 19:38 EST Tel , Service support , Discharge Plan Dx/Rx/DC Orders Clinical Impression: Intractable back pain Disposition Disposition: Acute Care Hospital [facility]
[2021-07-18] MEDS: 0.9% Normal Saline 1,000 ML 125 ML IV (15:30)
[2021-07-18] MEDS: Ondansetron 4 MG/2 ML Vial IV (15:31)
[2021-07-18] MEDS: Morphine 4 MG/ML Syringe IV ×2 (15:31→20:18)
[2021-07-18 15:43] LABS: Absolute Lymphocyte Count 1.21 X10^3/uL (0.83-4.51); Absolute Neutrophil Count 3.6 X10^3/uL (2.0-7.7); Basophil# 0.02 X10^3/uL; Basophil% 0.4 % (0-1); Eosinophils% 3.6 % (0-5); Hematocrit 33.9 % (40-54); Hemoglobin 11.3 g/dL (13.0-16.5); Lymphocyte # 1.21 X10^3/ul (0.83-4.51); Lymphocyte % 21.5 % (19-41); Mean Corp Hgb Conc 33.3 g/dL (32-36); Mean Corpuscular Hgb 34.5 pg (27.0-32.0); Mean Corpuscular Volume 103.4 fL (80-94); Mean Platelet Vol. 11.3 fl (6.2-12.0); Monocyte# 0.59 X10^3/uL; Monocyte% 10.5 % (0-10); NRBC Flagged by Analyzer 0 % (0-5); Neutrophil # 3.58 X10^3/uL (2.7-7.7); Neutrophil % 63.6 % (47-70); Platelet Count 108 K/mm3 (150-450); RBC Distribution Width CV 13.4 % (11.6-14.6); RBC Distribution Width SD 51.7 fl (35.1-43.9); Red Blood Count 3.28 M/mm3 (4.6-6.2); White Blood Count 5.6 K/mm3 (4.4-11.0)
[2021-07-18 15:56] LABS: Anion Gap 3 (5-15); BUN 16 mg/dL (7-18); Calcium,Total 8.6 mg/dL (8.5-10.1); Chloride 108 mmol/L (98-107); EST Glomerular Filtration Rate 77 mL/min (>60); Est Glom Filt Rate - Afr Amer 93 mL/min (>60); Glucose 111 mg/dL (74-106); Potassium 3.8 mmol/L (3.5-5.1); Sodium Level 140 mmol/L (136-145)
[2021-07-18 16:14] LABS: Lactic Acid 1.3 mmol/L (0.4-1.9)
[2021-07-18 16:15] VITALS: BP 118/68; PULSE 57; RESP 16
[2021-07-18 16:42] LABS: Bacteria 0 SEEN /hpf (None Seen); Mucous, Urine 0 SEEN /hpf (<or=2+)
[2021-07-18 16:47] LABS: Glucose, Dipstick Normal (Normal); Ketone-Dipstick Negative (Negative); Leukocyte Esterase-Dipstick 100 /ul (Negative); Nitrite-Dipstick Negative (Negative); Occult Blood-Urine Negative /ul (Negative); Protein-Dipstick 15 mg/dl (Negative); Specific Gravity, Urine 1.025 (1.002-1.030); Urine Bilirubin Dipstick Negative (Negative); Urine Urobilinogen 1 mg/dl (Normal)
[2021-07-18 16:55] LABS: Color, Urine YELLOW (Yellow)
[2021-07-18 16:56] LABS: Urine Clarity Sl. Cloudy (Clear)
[2021-07-18 16:59] LABS: Red Blood Cells-Urine 0-5 SEEN /hpf (0-5); Squamous Epithelial Cells - UA 0-5 SEEN /hpf (0-5); White Blood Cells 5-10 SEEN /hpf (0-5)
[2021-07-18 17:00] LABS: Amorphous Sediment 1+ URATE
--- NOTE | 2021-07-18 17:53 | MRI_ITS ---
STUDY: MRI LUMBAR SPINE WITH AND WITHOUT CONTRAST REASON FOR EXAM: Male, 81 years old. back pain, rule out infection TECHNIQUE: Standardized fat and water weighted pulse sequences were obtained in the sagittal and axial planes. 19ml Dotarem via IV was administered for the contrast portion of the examination. COMPARISON: Same day CT FINDINGS: Lumbar spine is intact and aligned with multilevel ventral osteophytes. There are no destructive lesions or discitis osteomyelitis. Canal is patent with normal conus and cauda equina. There is L4-S1 right and L4-L5 pedicular screw fusion with expected appearance. There is ill-defined soft tissue and enhancement insinuating around the aorta, renal vessels and IVC. This contacts the ventral L1-L2 osteophyte. MRI/Spine Lumbar W/WO Contrast IMPRESSION: 1. No spinal infection. 2. Abnormal upper perivascular retroperitoneal soft tissue. Differential diagnosis is early retroperitoneal fibrosis, inflammatory radhames-aortitis, lymphoma, less likely retroperitoneal amyloidosis. Electronically Signed: Vy Galvan MD at 19:38 EST Tel , Service support ,
[2021-07-18 19:17] VITALS: BP 138/81; PULSE 67; RESP 16
--- NOTE | 2021-07-18 19:57 | HP.PCM.HOS_ITS ---
HPI - General General Date of Admission: 07/18/21 Date of Service: 07/18/21 Chief Complaint: Acute intractable back pain, L flank pain HPI Narrative The patien nancy a 81 y/o M w/ PMHx: Former tobacco use, CAD s/p PCI, Chronic pain syndrome w/ chronic pain pain/DDD, HTN, HLD, GERD, Chronically elevated LFTs, Depression and Anxiety, ALDO, Chronic neuropathy who presents to the [facility] ED on 07/18/21 with history of onset initially right-sided lower back discomfort over the last 3 weeks however on day prior to presentation he had onset of left-sided flank discomfort which radiated towards his left lower abdomen with no recent fevers or chills, nausea or emesis no any change in his bowel movements with worsened pain with activity and certain movements, rating his pain 10 out of 10 in severity with no specific radiculopathy noted or focal weakness nor any urinary symptoms prompting ED evaluation given not improving. He does report his pain is being dull aching with intermittent sharp stabbing to the lumbar back region. He has had recent abdominal constipation and has generalized discomfort. Work-up in the ED included T 96.8, heart rate 64, BP 122/62, respiratory rate 18, 98% on room air, CBC with WC 5.6, hemoglobin 11.3, platelet 108 without marked shift, BMP not marked appearing, lactic acid 1.3, urinalysis with elevated specific [place] 1.025, negative nitrite, leukocyte E[place] 100, urine WBCs 5-10 with 0 urine bacteria, CT abdomen and pelvis with a nonspecific ventral paraspinous space inflammation without definitive source, extensive evidence of cardiac disease with severe coronary disease and aortic valve stenosis, MRI of the lumbar spine with no evidence of any spinal infection however an abnormal upper perivascular retroperitoneal soft tissue of unclear etiology possibly irregularly retroperitoneal fibrosis, inflammatory periaortitis, lymphoma, less likely retroperitoneal amyloidosis. In the ED patient ministered normal saline, morphine, Zofran. [facility] Medical History (Updated 07/18/21 @ 19:[address] Saskia Whitaker, ) Ataxia Atherosclerotic heart disease of [place] coronary artery with other forms of angina pectoris Chronic pain Chronic pain Cystitis DDD (degenerative disc disease), cervical DDD (degenerative disc disease), lumbar Debility Depression Elevated liver enzymes Essential (primary) hypertension GERD (gastroesophageal reflux disease) Hemorrhoids Hemorrhoids that prolapse with straining, but retract spontaneously Hyperlipidemia Insomnia Labile blood pressure Low back pain Neuropathic pain Obstructive sleep apnea Orthostatic hypotension Pain Physical debility Urinary tract infection Home Medications pravastatin 40 mg PO QHS 02/05/14 [History Last Taken 02/05/14 22:50 40 mg] aspirin 81 mg PO DAILY@0800 02/06/14 [History Last Taken 10/17/19] omeprazole 40 mg PO DAILY 05/13/14 [History Last Taken 06/08/19 08:15] gabapentin 300 mg capsule 300 mg PO DAILY 01/30/19 [History Last Taken Unknown] clopidogrel 75 mg PO DAILY 09/20/20 [History Last Taken Unknown] multivitamin 1 tab PO DAILYCM 09/20/20 [History Last Taken Unknown] docusate sodium 100 mg capsule 100 mg PO BID 10/23/20 [History Last Taken Unknown] ascorbate calcium (vitamin C) 500 mg tablet 500 mg PO DAILY 04/23/21 [History Last Taken Unknown] d-mannose 500 mg capsule 2,100 mg PO DAILY 04/23/21 [History Last Taken Unknown] hydrocodone 10 mg-acetaminophen 325 mg tablet 1 tab PO BID PRN 04/23/21 [History Last Taken Unknown] doxazosin 1 mg PO QHS 07/18/21 [History Last Taken Unknown] Allergy/AdvReac Type Severity Reaction Status Date / Time codeine Allergy Unknown Verified 07/18/21 15:06 Family History (Reviewed 04/23/21 @ 13:34 by Judith Rapp CUSTOMER SUCCESS REPRESENTATIVE, CUSTOMER SUCCESS REPRESENTATIVE-C) Father CVA (cerebral vascular accident) Brother Hypertension CVA (cerebral vascular accident) Mother Cancer leukemia Surgical History History of appendectomy History of back surgery History of coronary artery stent placement (02/12/14) History of kyphoplasty History of left heart catheterization (05/13/14) Hx of cholecystectomy S/P tendon repair Social History (Updated 07/18/21 @ 20:[address] India Rosa MD) household members: spouse Smoking Status: Former smoker how long ago did patient quit smokin years ago alcohol intake: former details: quit 50 years ago substance use type: does not use caffeine: Yes Type: carbonated beverages Number of servings: 2 what type of physical activity do you participate in: walking frequency: 3-4 times per week duration: < 15 minutes/day seatbelt use: always do you feel safe at home: Yes ROS ROS Narrative Admission Review of Systems: CONSTITUTIONAL: No weight loss, fever, chills, + weakness or fatigue. HEENT: Eyes: No visual loss, blurred vision, double vision or yellow sclerae. Ears, Nose, Throat: No hearing loss, sneezing, congestion, runny nose or sore throat. SKIN: No rash or itching, lesions, wounds. CARDIOVASCULAR: No chest pain, chest pressure or chest discomfort, palpitations, edema, orthopnea, syncopal events. RESPIRATORY: No shortness of breath, cough or sputum, wheezing, hemoptysis. GASTROINTESTINAL: + Constipation, abdominal discomfort, No anorexia, nausea, vomiting, melena, BRBPR. GENITOURINARY: No dysuria, frequency, urgency or retention. NEUROLOGICAL: + Intractable lumbar back pain, No headache, dizziness, syncope, paralysis, ataxia, numbness or tingling in the extremities, focal weakness, change in bowel or bladder control, seizure. MUSCULOSKELETAL: + muscle, back pain, joint pain or stiffness. HEMATOLOGIC: + anemia, bleeding or bruising. LYMPHATICS: No enlarged nodes. No history of splenectomy. PSYCHIATRIC: No history of depression or anxiety. ENDOCRINOLOGIC: No reports of sweating, cold or heat intolerance. No polyuria or polydipsia. ALLERGIES: No history of asthma, hives, eczema or rhinitis. Vital Signs Vital Signs Vital Signs: 07/18/21 15:06 07/18/21 16:15 07/18/21 19:17 Temperature 96.8 F L Temperature Source Temporal Pulse Rate 64 57 L 67 Respiratory Rate 18 16 16 Blood Pressure 122/62 H 118/68 138/81 H Blood Pressure Mean 82 84 100 Pulse Ox 98 Oxygen Delivery Method Room Air Weight Weight: 210 lb Body Mass Index (BMI) 29.2 Physical Exam Narrative Physical Examination: General: Awake, alert, oriented x 3 and cooperative, laying in the ED bed, significantly uncomfortable appearing. Skin: Normal color, normal turgor, no icterus, no cyanosis. HEENT: AT/NC, EOMI, PERRLA, mildly dry MM, no carotid bruits or JVD noted. Lungs: Diminished, greater bases, appropriate effort, no rales, ronchi or wheezing. Heart: Regular rate and rhythm; no gallop, rub audible. Abdomen: Soft, overweight, diffuse mild generalized discomfort with palpation, mildly distended, distant mildly hyperactive bowel sounds, no obvious HSM. Extremities: No cyanosis, clubbing, or edema. Notable bilateral lower extremity pain with palpation which is consistent with his chronic neuropathic pain he notes. Neurological: Patient awake, alert, oriented as noted, cognitive function intact; pupils equally reactive to light and accommodation, cranial nerves II- XII grossly normal, moving all 4 extremities however very limited given significant lumbar pain elicited with any movements, strength accordingly severely global decreased. Psychiatric: Affect appears extremely uncomfortable, no acute evidence of depressive or anxiety feelings. Results Lab / Micro Data Result Diagrams: 07/18/21 15:30 07/18/21 15:30 Labs: Laboratory Results - last 24 hr 07/18/21 15:30: WBC 5.6, RBC 3.28 L, Hgb 11.3 L, Hct 33.9 L, MCV 103.4 H, MCH 34.5 H, MCHC 33.3, RDW Std Deviation 51.7 H, RDW Coeff of [place] 13.4, Plt Count 108 L, MPV 11.3, Immature Gran % (Auto) 0.400, Neut % (Auto) 63.6, Lymph % (Auto) 21.5, [place] % (Auto) 10.5 H, Eos % (Auto) 3.6, Baso % (Auto) 0.4, Absolute Neuts (auto) 3.6, Absolute Lymphs (auto) 1.21, Nucleated RBC % 0 07/18/21 15:30: Sodium 140, Potassium 3.8, Chloride 108 H, Carbon Dioxide 29.0, Anion Gap 3 L, BUN 16, Creatinine 1.00, Estim Creat Clear Calc 63.80, Est GFR (MDRD) Af Amer 93, Est GFR (MDRD) Non-Af 77, BUN/Creatinine Ratio 16.0, Glucose 111 H, Calcium 8.6 07/18/21 15:30: Lactic Acid 1.3 07/18/21 16:30: Urine Color YELLOW, Urine Clarity Sl. Cloudy, Urine pH 5.0, Ur Specific [place] 1.025, Urine Protein 15 H, Urine Glucose (UA) Normal, Urine Ketones Negative, Urine Occult Blood Negative, Urine Nitrite Negative, Urine Bilirubin Negative, Urine Urobilinogen 1 H, Ur Leukocyte Esterase 100 H, Urine RBC 0-5 SEEN, Urine WBC 5-10 SEEN, Ur Squamous Epith Cells 0-5 SEEN, Amorphous Sediment 1+ URATE, Urine Bacteria 0 SEEN, Urine Mucus 0 SEEN Radiology Impression Abdomen/Pelvis CT 07/18/21 15:18 IMPRESSION: 1. Nonspecific ventral paraspinous space inflammation without definite source. Consider MR of the lumbar spine with and without contrast for detection of possible early spinal infection. 2. Otherwise no acute abdominal abnormality. 3. Extensive cardiac disease, severe coronary artery disease. 4. Aortic valve stenosis, cardiology referral advised. Electronically Signed: Vy Galvan MD at 16:40 EST Tel , Service support , Lumbar Spine MRI 07/18/21 17:53 IMPRESSION: 1. No spinal infection. 2. Abnormal upper perivascular retroperitoneal soft tissue. Differential diagnosis is early retroperitoneal fibrosis, inflammatory radhames-aortitis, lymphoma, less likely retroperitoneal amyloidosis. Electronically Signed: Vy Galvan MD at 19:38 EST Tel , Service support , Assessment & Plan Assessment/Plan (1) Intractable back pain: PLAN: The patien tis a 81 y/o M w/ PMHx: Former tobacco use, CAD s/p PCI, Chronic pain syndrome w/ chronic pain pain/DDD, HTN, HLD, GERD, Chronically elevated LFTs, Depression and Anxiety, ALDO, Chronic neuropathy who presents to the [facility] ED on 07/18/21 with history of onset initially right-sided lower back discomfort over the last 3 weeks however on day prior to presentation he had onset of left-sided flank discomfort which radiated towards his left lower abdomen with no recent fevers or chills, nausea or emesis no any change in his bowel movements with worsened pain with activity and certain movements, rating his pain out of 10 in severity with no specific radiculopathy. 1. Acute Intractable Back Pain, L Flank Pain, unclear etiology: Will admit to [facility], maintain on fall precautions, frequent positioning, initiate lidoacine patches, tizanidine PRN, increase home gabapentin regimen, medrol dose pack, po/IV narcotic pain regimen, anti-emetics, bowel regimen. Will consult PT and OT for evaluation as well as Case management for discharge planning. 2. Incidental abnormal upper perivascular retroperitoneal soft tissue finding: MRI of the lumbar spine with an abnormal upper perivascular retroperitoneal soft tissue finding of unclear etiology, unclear if associated with #1, will continue to treat #1, will obtain CRP, ESR initially and may need further evaluation/work-up. 3. Acute constipation: Patient notes recent acute constipation with abdominal discomfort on examination, will continue bowel regimen, likely worsened by recent decreased activity with intractable back pain. CT abdomen pelvis with no acute intra-abdominal findings. 4. Valvular Heart Disease: Noted on CT imaging, echocardiogram most recently 02/28/20 with normal LV size, normal LV systolic fx, EF 55%, mild TVI, mild SAGE, mild MVI. 5. CAD: Status post PCI, we will continue patient aspirin, Plavix, statin, not per current list on beta-nadine or PARAM inhibitor/ARB with history noted prior orthostatic hypotension. 6. Chronic anemia, macrocytic: Admission hemoglobin 1.3, baseline prior 11-12, stable, vitamin B12 and folic acid pending as not on any regimen per current list. 7. Hypertension: Not specifically on regimen aside from doxazosin, will continue, as needed IV hydralazine. BP normal range in the ED. 8. Hyperlipidemia: Continue home statin regimen. 9. Former tobacco use: Encourage continued tobacco cessation. 10. GERD: We will continue patient on PPI. 11. DVT prophylaxis: SCDs, Lovenox. Charges/Coding Visit Charges OBSV E&M: 28828 Initial observation care L3
[2021-07-18 20:17] VITALS: BP 155/81; PULSE 61; RESP 15; TEMP 36.8
--- NOTE | 2021-07-18 20:24 | ED.RN ---
CALLED AND UPDATED ON PATIENT CONDITION AND STATUS AT THIS TIME
[2021-07-18 21:05] LABS: CRP 9.86 mg/L (0.0-3.0)
[2021-07-18 21:09] LABS: Erythrocyte Sedimentation Rate 8 mm/hr (0-20)
[2021-07-18 21:10] VITALS: BMI 29.4
[2021-07-18 21:11] VITALS: BP 182/84; PULSE 63; RESP 16; TEMP 36.8; O2SAT 98
[2021-07-18 21:39] VITALS: PULSE 63
[2021-07-18] MEDS: hydrALAZINE 20 MG/ML Vial 10 MG IV (21:39)
[2021-07-18] MEDS: 0.9% Normal Saline 1,000 ML 100 ML IV (21:39)
[2021-07-18] MEDS: Lidocaine 5% Patch 2 PATCH TOPICAL (22:23)
[2021-07-18] MEDS: Pravastatin 40 MG Tablet PO (22:27)
[2021-07-18] MEDS: MethylPREDNISolone DosePak 4 MG BOX PO (22:27)
[2021-07-18] MEDS: Docusate Sodium 100 MG Capsule PO (22:27)
[2021-07-18] MEDS: Doxazosin 1 MG Tablet PO (22:27)
[2021-07-18] MEDS: tiZANidine HCl 2 MG Tablet PO (22:30)
--- NOTE | 2021-07-19 01:48 | PCS.PANDOC ---
PANDEMIC DOCUMENTATION INITIATED: Date: 04/13/2021 Time: 190
[2021-07-19] MEDS: Morphine 4 MG/ML Syringe IV (03:03)
[2021-07-19 03:15] VITALS: BP 134/68; PULSE 63; RESP 16; TEMP 36.7; O2SAT 96
[2021-07-19 06:57] LABS: Absolute Neutrophil Count 4.6 X10^3/uL (2.0-7.7); Basophil# 0.02 X10^3/uL; Basophil% 0.4 % (0-1); Eosinophil# 0.02 X10^3/uL; Eosinophils% 0.4 % (0-5); Hematocrit 34.9 % (40-54); Hemoglobin 11.9 g/dL (13.0-16.5); Lymphocyte % 9.1 % (19-41); Mean Corp Hgb Conc 34.1 g/dL (32-36); Mean Corpuscular Hgb 34.9 pg (27.0-32.0); Mean Corpuscular Volume 102.3 fL (80-94); Mean Platelet Vol. 10.3 fl (6.2-12.0); Monocyte# 0.29 X10^3/uL; Monocyte% 5.3 % (0-10); NRBC Flagged by Analyzer 0 % (0-5); Neutrophil # 4.61 X10^3/uL (2.7-7.7); Neutrophil % 84.1 % (47-70); POSITIVE DIFFERENTIAL YES; Platelet Count 101 K/mm3 (150-450); RBC Distribution Width CV 13.3 % (11.6-14.6); Red Blood Count 3.41 M/mm3 (4.6-6.2); White Blood Count 5.5 K/mm3 (4.4-11.0)
[2021-07-19 07:09] LABS: Differential Indicated SCAN CRITERIA MET
[2021-07-19 07:13] LABS: ALB/GLOB Ratio 0.9 RATIO (0.9-2.4); AST(SGOT) 21 U/L (15-37); Alanine Aminotransfer ALT/SGPT 24 U/L (16-61); Albumin, Serum 3.4 g/dL (3.2-5.0); Alkaline Phosphatase 82 U/L (45-117); Anion Gap 2 (5-15); BUN 12 mg/dL (7-18); BUN/Creat Ratio 14.9 RATIO (10-20); Calcium,Total 8.3 mg/dL (8.5-10.1); Chloride 106 mmol/L (98-107); EST Glomerular Filtration Rate 98 mL/min (>60); Est Glom Filt Rate - Afr Amer 119 mL/min (>60); Estimated Creatinine Clearance 79.74 ml/min; Globulin 3.7 g/dL (2.2-4.2); Glucose 104 mg/dL (74-106); Potassium 4.4 mmol/L (3.5-5.1); Protein, Total 7.1 g/dL (6.4-8.2); Sodium Level 137 mmol/L (136-145)
[2021-07-19 07:54] VITALS: O2SAT 95
[2021-07-19 08:07] VITALS: BP 167/90; PULSE 66; RESP 18; TEMP 36.8; O2SAT 94
[2021-07-19] MEDS: MethylPREDNISolone DosePak 4 MG BOX PO ×3 (08:13→18:01)
[2021-07-19] MEDS: Docusate Sodium 100 MG Capsule PO (08:14)
[2021-07-19] MEDS: Gabapentin 300 MG Capsule PO ×3 (08:14→18:02)
[2021-07-19] MEDS: Aspirin E.C. 81 MG Tablet PO (08:14)
[2021-07-19] MEDS: Lidocaine 5% Patch 2 PATCH TOPICAL (08:15)
[2021-07-19] MEDS: Enoxaparin 40 MG/0.4 ML Syringe SC (08:15)
[2021-07-19] MEDS: Clopidogrel Bisulfate 75 MG Tablet PO (08:16)
[2021-07-19] MEDS: Pantoprazole Sodium 40 MG Tablet PO (08:16)
[2021-07-19] MEDS: oxyCODONE 5 MG Tablet 10 MG PO ×2 (08:23→18:02)
[2021-07-19] MEDS: Ondansetron 4 MG/2 ML Vial IV (08:23)
[2021-07-19] MEDS: 0.9% Saline Lock 10 ML Syringe IV (08:23)
--- NOTE | 2021-07-19 11:48 | CPS ---
started by nursing
--- NOTE | 2021-07-19 12:55 | PN.HOSP_ITS ---
Subjective Subjective still with back pain. feeling better. still with back pain. Back pain began after a fall 2 weeks ago when he fell backwards. Objective Data Objective Data Vital Signs: Vital Signs Temp Pulse Resp BP Pulse Ox 36.8 C 66 18 167/90 H 94 07/19/21 08:07 07/19/21 08:07 07/19/21 08:07 07/19/21 08:07 07/19/21 08:07 Oxygen Delivery Method Room Air Weight: 95.7 kg Body Mass Index (BMI) 29.4 Intake & Output: Intake and Output for Last 24 Hours 07/17/21 07/18/21 07/19/21 23:59 23:59 23:59 Intake Total 750 / 750 1000 / 1000 Output Total 0 / 0 Balance 750 / 750 1000 / 1000 Lab / Micro Data Result Diagrams: 07/19/21 06:35 07/19/21 06:35 Labs: Laboratory Results - last 24 hr 07/18/21 15:30: WBC 5.6, RBC 3.28 L, Hgb 11.3 L, Hct 33.9 L, MCV 103.4 H, MCH 34.5 H, MCHC 33.3, RDW Std Deviation 51.7 H, RDW Coeff of [place] 13.4, Plt Count 108 L, MPV 11.3, Immature Gran % (Auto) 0.400, Neut % (Auto) 63.6, Lymph % (Auto) 21.5, [place] % (Auto) 10.5 H, Eos % (Auto) 3.6, Baso % (Auto) 0.4, Absolute Neuts (auto) 3.6, Absolute Lymphs (auto) 1.21, Nucleated RBC % 0 07/18/21 15:30: Sodium 140, Potassium 3.8, Chloride 108 H, Carbon Dioxide 29.0, Anion Gap 3 L, BUN 16, Creatinine 1.00, Estim Creat Clear Calc 63.80, Est GFR (MDRD) Af Amer 93, Est GFR (MDRD) Non-Af 77, BUN/Creatinine Ratio 16.0, Glucose 111 H, Calcium 8.6 07/18/21 15:30: Lactic Acid 1.3 07/18/21 15:30: ESR 8 07/18/21 15:30: C-React Prot Ext Range 9.86 H 07/18/21 16:30: Urine Color YELLOW, Urine Clarity Sl. Cloudy, Urine pH 5.0, Ur Specific [place] 1.025, Urine Protein 15 H, Urine Glucose (UA) Normal, Urine Ketones Negative, Urine Occult Blood Negative, Urine Nitrite Negative, Urine Bilirubin Negative, Urine Urobilinogen 1 H, Ur Leukocyte Esterase 100 H, Urine RBC 0-5 SEEN, Urine WBC 5-10 SEEN, Ur Squamous Epith Cells 0-5 SEEN, Amorphous Sediment 1+ URATE, Urine Bacteria 0 SEEN, Urine Mucus 0 SEEN 07/19/21 06:35: WBC 5.5, RBC 3.41 L, Hgb 11.9 L, Hct 34.9 L, MCV 102.3 H, MCH 34.9 H, MCHC 34.1, RDW Std Deviation 50.0 H, RDW Coeff of [place] 13.3, Plt Count 101 L, MPV 10.3, Immature Gran % (Auto) 0.700, Neut % (Auto) 84.1 H, Lymph % (Auto) 9.1 L, [place] % (Auto) 5.3, Eos % (Auto) 0.4, Baso % (Auto) 0.4, Absolute Neuts (auto) 4.6, Absolute Lymphs (auto) 0.50 L, Nucleated RBC % 0 07/19/21 06:35: Sodium 137, Potassium 4.4, Chloride 106, Carbon Dioxide 29.0, Anion Gap 2 L, BUN 12, Creatinine 0.80, Estim Creat Clear Calc 79.74, Est GFR (MDRD) Af Amer 119, Est GFR (MDRD) Non-Af 98, BUN/Creatinine Ratio 14.9, Glucose 104, Calcium 8.3 L, Total Bilirubin 0.80, AST 21, ALT 24, Alkaline Phosphatase 82, Total Protein 7.1, Albumin 3.4, Globulin 3.7, Albumin/Globulin Ratio 0.9 Radiography Diagnostic Testing: Radiology Impression Abdomen/Pelvis CT 07/18/21 15:18 IMPRESSION: 1. Nonspecific ventral paraspinous space inflammation without definite source. Consider MR of the lumbar spine with and without contrast for detection of possible early spinal infection. 2. Otherwise no acute abdominal abnormality. 3. Extensive cardiac disease, severe coronary artery disease. 4. Aortic valve stenosis, cardiology referral advised. Electronically Signed: Vy Galvan MD at 16:40 EST Tel , Service support , Lumbar Spine MRI 07/18/21 17:53 IMPRESSION: 1. No spinal infection. 2. Abnormal upper perivascular retroperitoneal soft tissue. Differential diagnosis is early retroperitoneal fibrosis, inflammatory radhames-aortitis, lymphoma, less likely retroperitoneal amyloidosis. Electronically Signed: Vy Galvan MD at 19:38 EST Tel , Service support , Physical Exam Const alert and no apparent distress Exam Limitations: no limitations Neck no lymphadenopathy Resp normal respiratory effort, no retractions, no use of accessory muscles and clear to auscultation bilaterally Cardio regular rate, regular rhythm, S1 normal heart sound and S2 normal heart sound GI normal to inspection, nondistended, normoactive bowel sounds, soft to palpation, non-tender and non-distended Extremity Extremity Narrative: bilateral paraspinal tenderness. Assessment & Plan Assessment/Plan (1) Intractable back pain: PLAN: 1. intractable back pain * subjectively improved * likely due to paraspinal muscle spasm * MRI showed no abscess nor cord impingement * continue lidocaine, steroids, oxycodone, tizanidine * change methylpred to prednisone * discharge with cyclobenzaprine. 2. Debility * PT recommends outpt therapy DC home
[2021-07-19 12:57] VITALS: BP 132/73; PULSE 58; RESP 18; TEMP 36.8; O2SAT 94
--- NOTE | 2021-07-19 13:15 | PCM.DC ---
Discharge Instructions Diet Discharge Diet: No restrictions Activity Discharge Activity: Return to Normal Activity (ease back into normal routine. ) Follow Up Care Test Results: Test results from this visit will be discussed in further detail at your follow-up appointment, if applicable. Discharge Plan Admission Admit Date/Time: 07/18/21 20:42 Primary Reason for Your Visit: back pain Attending Provider: Dudley Westfall Primary Care Provider: Josi Moreira Discharge Orders/Prescriptions Prescriptions: New prednisone 10 mg tablet 40 mg PO DAILY 5 Days Qty: 20 RF: 0 cyclobenzaprine 10 mg tablet 10 mg PO TID PRN (Reason: muscle spasm) Qty: 20 RF: 0 Continued gabapentin 300 mg capsule 300 mg PO QHS RF: 0 docusate sodium [Colace] 100 mg capsule 100 mg PO BID RF: 0 ascorbate calcium (vitamin C) 500 mg tablet 500 mg PO DAILY RF: 0 d-mannose 500 mg capsule 2,100 mg PO DAILY RF: 0 hydrocodone-acetaminophen 10-325 mg tablet 1 tab PO BID PRN (Reason: Pain) RF: 0 pravastatin 40 MG tablet 40 mg PO QHS RF: 0 aspirin 81 MG tablet 81 mg PO DAILY@0800 RF: 0 omeprazole 40 MG capsule 40 mg PO DAILY RF: 0 multivitamin 1 TABLET tablet 1 tab PO DAILYCM RF: 0 clopidogrel 75 MG tablet 75 mg PO QHS RF: 0 doxazosin 1 mg Tablet 1 mg PO QHS RF: 0 Other Ambulatory Orders: Physical Therapy Evaluation (Routine) Location: None Selected Ordered By: Dr. Dudley Westfall Referrals / Follow Up: Reji Ross MD [STAFF PHYSICIAN] - Within 2 Weeks Josi Moreira DO [Primary Care Provider] - Within 2 Weeks Disposition Disposition (needs filled in before D/C Order can be placed): Home, Self Care
--- NOTE | 2021-07-19 13:22 | DS.PCM_ITS ---
Providers Date of Admission: 07/18/21 Primary Care Physician: Dr. Josi Moreira DO Reason For Visit: INTRACTABLE BACK PAIN Diagnosis Discharge Diagnosis (1) Intractable back pain: Status: Acute Code(s): M54.9 - Dorsalgia, unspecified Medications at Discharge Home Medications pravastatin 40 mg PO QHS 02/05/14 aspirin 81 mg PO DAILY@0800 02/06/14 omeprazole 40 mg PO DAILY 05/13/14 gabapentin 300 mg capsule 300 mg PO QHS 01/30/19 clopidogrel 75 mg PO QHS 09/20/20 multivitamin 1 tab PO DAILYCM 09/20/20 docusate sodium 100 mg capsule 100 mg PO BID 10/23/20 ascorbate calcium (vitamin C) 500 mg tablet 500 mg PO DAILY 04/23/21 d-mannose 500 mg capsule 2,100 mg PO DAILY 04/23/21 hydrocodone 10 mg-acetaminophen 325 mg tablet 1 tab PO BID PRN 04/23/21 doxazosin 1 mg PO QHS 07/18/21 cyclobenzaprine 10 mg PO TID PRN #20 tab 07/19/21 prednisone 40 mg PO DAILY 5 Days #20 tab 07/19/21 Hospital Course Operations None Procedures None Summary of Care Provided Minutes Spent on Discharge: 28 Hospital Course: This 41-year-old male presents with acute back pain. Patient seen pain management is on [place] and gabapentin. On exam, patient had reproducible paraspinal tenderness. MRI of the lumbar spine showed no cord impingement nor any infectious process. There was abnormal upper perivascular retroperitoneal soft tissue. Etiology could be retroperitoneal fibrosis, and inflammatory periaortic-itis, lymphoma. This will need follow-up as outpatient. Patient was seen by therapy and recommending outpatient therapy.. Weight / BMI Weight Weight: 95.7 kg Body Mass Index (BMI) 29.4 ABG / Lab / Microbiology Data Result Diagrams: 07/19/21 06:35 07/19/21 06:35 Laboratory: Laboratory Results - last 24 hr 07/18/21 15:30: WBC 5.6, RBC 3.28 L, Hgb 11.3 L, Hct 33.9 L, MCV 103.4 H, MCH 34.5 H, MCHC 33.3, RDW Std Deviation 51.7 H, RDW Coeff of [place] 13.4, Plt Count 108 L, MPV 11.3, Immature Gran % (Auto) 0.400, Neut % (Auto) 63.6, Lymph % (Auto) 21.5, [place] % (Auto) 10.5 H, Eos % (Auto) 3.6, Baso % (Auto) 0.4, Absolute Neuts (auto) 3.6, Absolute Lymphs (auto) 1.21, Nucleated RBC % 0 07/18/21 15:30: Sodium 140, Potassium 3.8, Chloride 108 H, Carbon Dioxide 29.0, Anion Gap 3 L, BUN 16, Creatinine 1.00, Estim Creat Clear Calc 63.80, Est GFR (MDRD) Af Amer 93, Est GFR (MDRD) Non-Af 77, BUN/Creatinine Ratio 16.0, Glucose 111 H, Calcium 8.6 07/18/21 15:30: Lactic Acid 1.3 07/18/21 15:30: ESR 8 07/18/21 15:30: C-React Prot Ext Range 9.86 H 07/18/21 16:30: Urine Color YELLOW, Urine Clarity Sl. Cloudy, Urine pH 5.0, Ur Specific [place] 1.025, Urine Protein 15 H, Urine Glucose (UA) Normal, Urine Ketones Negative, Urine Occult Blood Negative, Urine Nitrite Negative, Urine Bilirubin Negative, Urine Urobilinogen 1 H, Ur Leukocyte Esterase 100 H, Urine RBC 0-5 SEEN, Urine WBC 5-10 SEEN, Ur Squamous Epith Cells 0-5 SEEN, Amorphous Sediment 1+ URATE, Urine Bacteria 0 SEEN, Urine Mucus 0 SEEN 07/19/21 06:35: WBC 5.5, RBC 3.41 L, Hgb 11.9 L, Hct 34.9 L, MCV 102.3 H, MCH 34.9 H, MCHC 34.1, RDW Std Deviation 50.0 H, RDW Coeff of [place] 13.3, Plt Count 101 L, MPV 10.3, Immature Gran % (Auto) 0.700, Neut % (Auto) 84.1 H, Lymph % (Auto) 9.1 L, [place] % (Auto) 5.3, Eos % (Auto) 0.4, Baso % (Auto) 0.4, Absolute Neuts (auto) 4.6, Absolute Lymphs (auto) 0.50 L, Nucleated RBC % 0 07/19/21 06:35: Sodium 137, Potassium 4.4, Chloride 106, Carbon Dioxide 29.0, Anion Gap 2 L, BUN 12, Creatinine 0.80, Estim Creat Clear Calc 79.74, Est GFR (MDRD) Af Amer 119, Est GFR (MDRD) Non-Af 98, BUN/Creatinine Ratio 14.9, Glucose 104, Calcium 8.3 L, Total Bilirubin 0.80, AST 21, ALT 24, Alkaline Phosphatase 82, Total Protein 7.1, Albumin 3.4, Globulin 3.7, Albumin/Globulin Ratio 0.9 Radiography Diagnostic Testing: Radiology Impression Abdomen/Pelvis CT 07/18/21 15:18 IMPRESSION: 1. Nonspecific ventral paraspinous space inflammation without definite source. Consider MR of the lumbar spine with and without contrast for detection of possible early spinal infection. 2. Otherwise no acute abdominal abnormality. 3. Extensive cardiac disease, severe coronary artery disease. 4. Aortic valve stenosis, cardiology referral advised. Electronically Signed: Vy Galvan MD at 16:40 EST Tel , Service support , Lumbar Spine MRI 07/18/21 17:53 IMPRESSION: 1. No spinal infection. 2. Abnormal upper perivascular retroperitoneal soft tissue. Differential diagnosis is early retroperitoneal fibrosis, inflammatory radhames-aortitis, lymphoma, less likely retroperitoneal amyloidosis. Electronically Signed: Vy Galvan MD at 19:38 EST Tel , Service support , D/C Instructions Discharge Diet: No restrictions Meaningful Use Info Meaningful Use Diagnoses (Choose all that apply): None applicable Discharge Plan Admission Admit Date/Time: 07/18/21 20:42 Primary Reason for Your Visit: back pain Attending Provider: Dudley Westfall Primary Care Provider: Josi Moreira Discharge Orders/Prescriptions Prescriptions: New prednisone 10 mg tablet 40 mg PO DAILY 5 Days Qty: 20 RF: 0 cyclobenzaprine 10 mg tablet 10 mg PO TID PRN (Reason: muscle spasm) Qty: 20 RF: 0 Continued gabapentin 300 mg capsule 300 mg PO QHS RF: 0 docusate sodium [Colace] 100 mg capsule 100 mg PO BID RF: 0 ascorbate calcium (vitamin C) 500 mg tablet 500 mg PO DAILY RF: 0 d-mannose 500 mg capsule 2,100 mg PO DAILY RF: 0 hydrocodone-acetaminophen 10-325 mg tablet 1 tab PO BID PRN (Reason: Pain) RF: 0 pravastatin 40 MG tablet 40 mg PO QHS RF: 0 aspirin 81 MG tablet 81 mg PO DAILY@0800 RF: 0 omeprazole 40 MG capsule 40 mg PO DAILY RF: 0 multivitamin 1 TABLET tablet 1 tab PO DAILYCM RF: 0 clopidogrel 75 MG tablet 75 mg PO QHS RF: 0 doxazosin 1 mg Tablet 1 mg PO QHS RF: 0 Other Ambulatory Orders: Physical Therapy Evaluation (Routine) Location: None Selected Ordered By: Dr. Dudley Westfall Referrals / Follow Up: Reji Ross MD [STAFF PHYSICIAN] - Within 2 Weeks Josi Moreira DO [Primary Care Provider] - Within 2 Weeks Disposition Disposition (needs filled in before D/C Order can be placed): Home, Self Care Charges/Coding Visit Charges OBSV E&M: 81392 Observation care discharge
[2021-07-19 17:53] VITALS: BP 153/83; PULSE 66; RESP 16; TEMP 36.9; O2SAT 94
== END 2021-07-19 20:00 | disposition home or self-care (01) ==
LOC: ED 19:58 → MS3 21:13
PROVIDERS: Admitting Provider Family Medicine; Emergency Provider Emergency Medicine; PCP Internal Medicine
DX: M54.9 Dorsalgia, unspecified (principal); I25.10 Atherosclerotic heart disease of native coronary artery without angina pectoris; K59.00 Constipation, unspecified; K21.9 Gastro-esophageal reflux disease without esophagitis; I10 Essential (primary) hypertension; E78.5 Hyperlipidemia, unspecified; M51.36 Other intervertebral disc degeneration, lumbar region; G89.4 Chronic pain syndrome; M50.30 Other cervical disc degeneration, unspecified cervical region; G47.33 Obstructive sleep apnea (adult) (pediatric); Z87.891 Personal history of nicotine dependence; Z79.899 Other long term (current) drug therapy; Z79.82 Long term (current) use of aspirin; Z79.02 Long term (current) use of antithrombotics/antiplatelets
CPT/HCPCS: 36415; 72158; 74176; 80048; 80053; 81001; 83605; 85025; 85652; 86140; 96361; 96372; 96374; 96375; 96376; 97162; 97166; 99218; 99251; 99284; A9575; J7030; A4216; G0378; G0463; J2405

== ENCOUNTER 2021-08-03 09:49 | Emergency (ER) | payer MEDICARE, SELFPAY ==
[2021-08-03 09:51] VITALS: BP 133/70; PULSE 63; RESP 16; TEMP 36.3; O2SAT 97; BMI 31.0
--- NOTE | 2021-08-03 10:26 | CT_ITS ---
STUDY: CT BRAIN WITHOUT CONTRAST REASON FOR EXAM: Male, 81 years old. Frequent falls. The patient is on ELIQUIS. RADIATION DOSAGE (If Supplied By Facility): CTDIvol = ( 44.99 ) mGy, DLP = ( 880.47 ) mGycm TECHNIQUE: Transaxial CT imaging of the brain was performed without administration of intravenous contrast material. Individualized dose optimization techniques were used for this CT. COMPARISON: Comparison is made with prior study dated 03/18/2021. FINDINGS: Normal soft tissue structures. Normal calvarium. There is mild cerebral atrophy with widening of the extra-axial spaces and ventricular dilatation. Normal white matter tracts of the cerebral hemispheres. Normal basal ganglia and thalami. Normal brainstem. Normal cerebellum. There is no intracranial hemorrhage. There are no findings of an acute ischemic infarction. Normal visualized paranasal sinuses. CT/Brain/Head without Contrast IMPRESSION: Chronic involutional changes of the brain. Electronically Signed: Rai Scott MD at 11:15 EST , Service support ,
--- NOTE | 2021-08-03 10:26 | RAD_ITS ---
STUDY: X-RAY - THORACIC SPINE REASON FOR EXAM: Male, 81 years old. fall, pain TECHNIQUE: 3 view(s) of the thoracic spine were obtained. COMPARISON: 01/28/2021 FINDINGS: Normal kyphosis of the thoracic spine. There is no substantial scoliosis. Status post vertebroplasty at T7, T9, and T10 which are unchanged. Normal disc space heights. The soft tissue structures are unremarkable. RAD/Thoracic Spine 3 Views IMPRESSION: No acute fracture or subluxation. Electronically Signed: David Roberts MD at 11:31 EST Tel , Service support ,
--- NOTE | 2021-08-03 10:26 | RAD_ITS ---
STUDY: X-RAY - RIGHT SHOULDER REASON FOR EXAM: Male, 81 years old. pain, fall TECHNIQUE: 2 view(s) of the shoulder. COMPARISON: None. FINDINGS: Normal glenohumeral articulation. Normal acromioclavicular joint. Normal acromion. Normal humeral head and visualized proximal humerus. The soft tissue structures are unremarkable. Normal visualized pulmonary apex. Acute fractures the posterior right third, fourth, and fifth ribs. RAD/Shoulder min 2 Views IMPRESSION: Normal x-ray examination of the shoulder. Acute fractures of the posterior right third, fourth, and fifth ribs. Electronically Signed: David Roberts MD at 11:33 EST Tel , Service support ,
--- NOTE | 2021-08-03 10:29 | ED.VIS.FALL ---
HPI HPI - Fall History of Present Illness Chief Complaint: Fall Informant: patient Pain/Injury Location: head, R shoulder, back Quality of Pain: Aching Current Severity: Moderate Maximum Severity: Moderate Worsened by: movement Relieved by: remaining still Associated Symptoms Associated Symptoms: Negative for Parasthesias, Weakness, Loss of function, Inability to ambulate, Loss of consciousness and Amnesia Narrative Narrative: Patient states he was in his house and felt himself walking backward losing his balance without feeling disequilibrium, vertigo, or any other dizziness, and as result fell backward hitting his head on the floor as well as the back of his right shoulder and his upper back. Denies loss of consciousness, no headache, nausea, vomiting, vision changes. He is on Eliquis he states although it is not on his list. It is unknown why he is on Eliquis, and why he was on warfarin in the past. No other injuries. [facility] Medical History (Updated 08/03/21 @ 13:[address] 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 Chronic pain Chronic pain Cystitis DDD (degenerative disc disease), cervical DDD (degenerative disc disease), lumbar Debility Depression Elevated liver enzymes Essential (primary) hypertension GERD (gastroesophageal reflux disease) Hemorrhoids Hemorrhoids that prolapse with straining, but retract spontaneously Hyperlipidemia Insomnia Labile blood pressure Low back pain Neuropathic pain Obstructive sleep apnea Orthostatic hypotension Pain Physical debility Urinary tract infection Home Medications pravastatin 40 mg PO QHS 02/05/14 [History Last Taken 07/17/21] aspirin 81 mg PO DAILY@0800 02/06/14 [History Last Taken 07/18/21] omeprazole 40 mg PO DAILY 05/13/14 [History Last Taken 07/18/21] gabapentin 300 mg capsule 300 mg PO QHS 01/30/19 [History Last Taken 07/17/21] clopidogrel 75 mg PO QHS 09/20/20 [History Last Taken 07/17/21] multivitamin 1 tab PO DAILYCM 09/20/20 [History Last Taken 07/18/21] docusate sodium 100 mg capsule 100 mg PO BID 10/23/20 [History Last Taken 07/18/21] ascorbate calcium (vitamin C) 500 mg tablet 500 mg PO DAILY 04/23/21 [History Last Taken Unknown] d-mannose 500 mg capsule 2,100 mg PO DAILY 04/23/21 [History Last Taken 07/18/21] hydrocodone 10 mg-acetaminophen 325 mg tablet 1 tab PO BID PRN 04/23/21 [History Last Taken 07/18/21] doxazosin 1 mg PO QHS 07/18/21 [History Last Taken 07/17/21] hydrocodone-acetaminophen 0.5 - 1 tab PO Q4H PRN PRN 3 Days #10 tablet 08/03/21 [Rx Last Taken Unknown] nitrofurantoin monohyd/m-cryst 100 mg PO Q12 #14 capsule 08/03/21 [Rx Last Taken Unknown] Allergy/AdvReac Type Severity Reaction Status Date / Time codeine Allergy Unknown Verified 08/03/21 09:56 Family History (Reviewed 04/23/21 @ 13:34 by Judith Rapp SPECIAL SERVICE REPRESENTATIVE, SPECIAL SERVICE REPRESENTATIVE-C) Father CVA (cerebral vascular accident) Brother Hypertension CVA (cerebral vascular accident) Mother Cancer leukemia Surgical History History of appendectomy History of back surgery History of coronary artery stent placement (02/12/14) History of kyphoplasty History of left heart catheterization (05/13/14) Hx of cholecystectomy S/P tendon repair Social History household members: spouse Smoking Status: Former smoker how long ago did patient quit smokin years ago alcohol intake: former details: quit 50 years ago substance use type: does not use caffeine: Yes Type: carbonated beverages Number of servings: 2 what type of physical activity do you participate in: walking frequency: 3-4 times per week duration: < 15 minutes/day seatbelt use: always do you feel safe at home: Yes ROS ROS ED Constitutional Constitutional ED: Denies chills or fever(s) Eyes Eyes: Denies change in vision or diplopia ENT ENT ED: Denies ear pain, epistaxis, facial pain or rhinorrhea Cardiovascular Cardiovascular: Denies chest pain or palpitations Respiratory/Chest Respiratory/Chest: Denies cough or dyspnea Gastrointestinal Gastrointestinal: Denies abdominal pain, diarrhea, melena, nausea or vomiting Genitourinary Genitourinary ED: Denies dysuria or hematuria Musculoskeletal Musculoskeletal: Reports as per HPI, back pain and extremity pain; Denies neck pain Integumentary Denies abscess, Abrasions, laceration or rash Neurologic Neurologic: Denies confusion, headache(s), paresthesias, vertigo or weakness EXAM Physical Exam Const Vital Signs: 08/03/21 09:51 08/03/21 09:55 08/03/21 11:49 Temperature 97.4 F L Temperature Source Oral Pulse Rate 63 66 Respiratory Rate 16 18 Respiratory Effort Normal Non-Labored Respiratory Depth Normal Respiratory Pattern Normal Blood Pressure 133/70 H 130/72 H Blood Pressure Mean 91 91 Pulse Ox 97 94 Oxygen Delivery Method Room Air Room Air 08/03/21 13:00 08/03/21 15:00 Temperature Temperature Source Pulse Rate 63 69 Respiratory Rate 17 14 Respiratory Effort Respiratory Depth Respiratory Pattern Blood Pressure 125/63 H 132/86 H Blood Pressure Mean 83 101 Pulse Ox 93 97 Oxygen Delivery Method Room Air Room Air Positive well nourished and well developed General Appearance ED: well developed and NAD HEENT Reports TM's clear and nasal mucous membranes and turbinates normal atraumatic Face and Sinus: Negative for facial tenderness Tympanic Membrane ED: Yes TM's clear Eyes PERRL and EOMs intact bilaterally Visual Acuity: other Other Details: no entrapment or pain with extraocular movements Neck full ROM and supple General: Negative for tenderness Chest Wall inspection of chest normal and palpation of chest normal Chest: symmetrical chest wall rise; Negative for crepitus or tenderness Resp normal respiratory effort and clear to auscultation bilaterally Percussion: other equal BS bilat Cardio no murmurs Rate: regular rate Rhythm: regular rhythm GI normal to inspection, nondistended, normoactive bowel sounds, soft to palpation and non-tender Back/Spine normal ROM and normal to inspection Back/Spine Narrative: Most of the thoracic tenderness is in the right rhomboids and periscapular musculature which is all normal-appearing without any obvious signs of trauma. Cervical Spine: Negative for cervical spine tenderness Thoracic Spine / Upper Back: thoracic spinal tenderness T2, T3, T4, T5, T6, T7 and T8 (Approximately) other (Normal-appearing. No step-off. Good range of motion.) Lumbar Spine / Lower Back: Negative for lumbar spinal tenderness Extremity normal to inspection Extremity Narrative: Mildly tender to the right acromioclavicular joint which is normal-appearing without deformity or swelling. Patient has full range of motion throughout all joints of all 4 extremities except for the right shoulder, although his range is good. He can abduct up to almost 90 degrees before he starts to have pain, and he can flex up to around 30 or 40 degrees. Internal and external rotation while his elbow was down in neutral position is painless. No deformity. General Extremety ED: Yes tenderness Neuro oriented x3, CN's II-XII intact bilaterally, moves all extremities, no focal motor deficits and no sensory deficits noted Joselin Coma Scale: document GCS findings Spontaneous Obeys Commands Oriented 15 Sensorium / Orientation: awake and alert Psych mental status grossly normal and thought process normal Skin no wounds Lesions: no lesions Rashes: no rashes MDM MDM MDM Narrative Medical decision making narrative: Patient had a mechanical fall from losing his balance, x-ray showed that he broke a couple of ribs on the right side, he is not dyspneic and is breathing well, even when he takes a deep breath. Rest of his imaging is negative. Got him out of bed he was able to walk without difficulty. I offered admission, after given him [place] his pain is better and he declines and wants to go home. We discussed risk and benefits and he is okay with that. Minutes time spirometer with instructions, pain medication, and he did have a UTI to be started treatment with with Rocephin, send a culture, will send him home on nitrofurantoin. Unknown if this is related to his fall and other falls recently or not, he was not seen in this ER due to those other falls which is why did more of a medical work-up. Lab Data Attestation: I reviewed the patient's lab results. Labs: Laboratory Results - last 24 hr 08/03/21 08/03/21 08/03/21 10:45 10:45 11:46 WBC 5.6 RBC 3.12 L Hgb 10.7 L Hct 32.7 L MCV 104.8 H MCH 34.3 H MCHC 32.7 RDW Std Deviation 52.7 H RDW Coeff of [place] 13.9 Plt Count 115 L MPV 11.5 Immature Gran % (Auto) 0.900 Neut % (Auto) 73.0 H Lymph % (Auto) 14.8 L [place] % (Auto) 8.0 Eos % (Auto) 2.9 Baso % (Auto) 0.4 Absolute Neuts (auto) 4.1 Absolute Lymphs (auto) 0.83 Nucleated RBC % 0 Sodium 142 Potassium 4.6 Chloride 108 H Carbon Dioxide 29.0 Anion Gap 5 BUN 15 Creatinine 0.98 Estim Creat Clear Calc 65.10 Est GFR (MDRD) Af Amer 95 Est GFR (MDRD) Non-Af 79 BUN/Creatinine Ratio 15.4 Glucose 98 Calcium 8.7 Urine Color Yellow Urine Clarity Clear Urine pH 5.0 Ur Specific [place] 1.020 Urine Protein 30 H Urine Glucose (UA) Normal Urine Ketones 5 H Urine Occult Blood Negative Urine Nitrite Negative Urine Bilirubin 1 H Urine Urobilinogen 4 H Ur Leukocyte Esterase 100 H Urine RBC 0 SEEN Urine WBC 10-25 SEEN Ur Squamous Epith Cells 0-5 SEEN Urine Bacteria 1+ Hyaline Casts 0-5 SEEN Urine Mucus 0 SEEN Radiography Diagnostic Testing: Clinical Impression(s) from Imaging Studies Brain CT 08/03/21 10:26 IMPRESSION: Chronic involutional changes of the brain. Electronically Signed: Rai Scott MD at 11:15 EST , Service support , Shoulder X-Ray 08/03/21 10:26 IMPRESSION: Normal x-ray examination of the shoulder. Acute fractures of the posterior right third, fourth, and fifth ribs. Electronically Signed: David Roberts MD at 11:33 EST Tel , Service support , Thoracic Spine X-Ray 08/03/21 10:26 IMPRESSION: No acute fracture or subluxation. Electronically Signed: David Roberts MD at 11:31 EST Tel , Service support , Discharge Plan Triage Chief Complaint: Fall ED Provider: Nyemar Becerra Dx/Rx/DC Orders Clinical Impression: Closed fracture of multiple ribs of right side, Closed head injury, Acute UTI Instructions: Using an Incentive Spirometer, Urinary Tract Infections in Men, ED Rib Fracture Prescriptions: New hydrocodone-acetaminophen [hydrocodone-acetaminophen] 1 TABLET tablet 0.5 - 1 tab PO Q4H PRN PRN (Reason: Pain) 3 Days Qty: 10 RF: 0 nitrofurantoin monohyd/m-cryst [nitrofurantoin monohyd/m-cryst] 100 MG capsule 100 mg PO Q12 Qty: 14 RF: 0 No Action gabapentin 300 mg capsule 300 mg PO QHS RF: 0 docusate sodium [Colace] 100 mg capsule 100 mg PO BID RF: 0 ascorbate calcium (vitamin C) 500 mg tablet 500 mg PO DAILY RF: 0 d-mannose 500 mg capsule 2,100 mg PO DAILY RF: 0 hydrocodone-acetaminophen 10-325 mg tablet 1 tab PO BID PRN (Reason: Pain) RF: 0 pravastatin 40 MG tablet 40 mg PO QHS RF: 0 aspirin 81 MG tablet 81 mg PO DAILY@0800 RF: 0 omeprazole 40 MG capsule 40 mg PO DAILY RF: 0 multivitamin 1 TABLET tablet 1 tab PO DAILYCM RF: 0 clopidogrel 75 MG tablet 75 mg PO QHS RF: 0 doxazosin 1 mg Tablet 1 mg PO QHS RF: 0 Primary Care Provider: Josi Moreira Referrals: Josi Moreira DO [Primary Care Provider] - 3-5 Days Disposition Disposition: Home, Self Care
[2021-08-03] MEDS: HYDROcodone Bitartrate/Apap 5/325 Tablet PO (10:41)
[2021-08-03 10:52] LABS: Absolute Lymphocyte Count 0.83 X10^3/uL (0.83-4.51); Absolute Neutrophil Count 4.1 X10^3/uL (2.0-7.7); Basophil# 0.02 X10^3/uL; Basophil% 0.4 % (0-1); Eosinophil# 0.16 X10^3/uL; Eosinophils% 2.9 % (0-5); Hematocrit 32.7 % (40-54); Hemoglobin 10.7 g/dL (13.0-16.5); Lymphocyte # 0.83 X10^3/ul (0.83-4.51); Lymphocyte % 14.8 % (19-41); Mean Corp Hgb Conc 32.7 g/dL (32-36); Mean Corpuscular Hgb 34.3 pg (27.0-32.0); Mean Corpuscular Volume 104.8 fL (80-94); Mean Platelet Vol. 11.5 fl (6.2-12.0); Monocyte# 0.45 X10^3/uL; NRBC Flagged by Analyzer 0 % (0-5); Platelet Count 115 K/mm3 (150-450); RBC Distribution Width CV 13.9 % (11.6-14.6); RBC Distribution Width SD 52.7 fl (35.1-43.9); Red Blood Count 3.12 M/mm3 (4.6-6.2); White Blood Count 5.6 K/mm3 (4.4-11.0)
[2021-08-03 11:16] LABS: Anion Gap 5 (5-15); BUN 15 mg/dL (7-18); BUN/Creat Ratio 15.4 RATIO (10-20); Calcium,Total 8.7 mg/dL (8.5-10.1); Chloride 108 mmol/L (98-107); Creatinine, Serum 0.98 mg/dL (0.70-1.30); EST Glomerular Filtration Rate 79 mL/min (>60); Est Glom Filt Rate - Afr Amer 95 mL/min (>60); Glucose 98 mg/dL (74-106); Potassium 4.6 mmol/L (3.5-5.1); Sodium Level 142 mmol/L (136-145)
[2021-08-03 11:49] VITALS: BP 130/72; PULSE 66; RESP 18; O2SAT 94
[2021-08-03 11:51] LABS: Mucous, Urine 0 SEEN /hpf (<or=2+); Red Blood Cells-Urine 0 SEEN /hpf (0-5)
[2021-08-03 11:53] LABS: Color, Urine Yellow (Yellow); Glucose, Dipstick Normal (Normal); Ketone-Dipstick 5 mg/dl (Negative); Leukocyte Esterase-Dipstick 100 /ul (Negative); Nitrite-Dipstick Negative (Negative); Occult Blood-Urine Negative /ul (Negative); Protein-Dipstick 30 mg/dl (Negative); Urine Clarity Clear (Clear); Urine Urobilinogen 4 mg/dl (Normal)
[2021-08-03 12:04] LABS: Urine Bilirubin Dipstick 1 mg/dL (Negative)
[2021-08-03 12:05] LABS: Bacteria 1+ /hpf (None Seen); Hyaline Cast 0-5 SEEN /lpf (0-5); Squamous Epithelial Cells - UA 0-5 SEEN /hpf (0-5); White Blood Cells 10-25 SEEN /hpf (0-5)
[2021-08-03 13:00] VITALS: BP 125/63; PULSE 63; RESP 17; O2SAT 93
[2021-08-03] MEDS: Ceftriaxone 1 GM/50 ML BAG IV (14:17)
[2021-08-03 15:00] VITALS: BP 132/86; PULSE 69; RESP 14; O2SAT 97
[2021-08-03 15:30] VITALS: BP 125/82; PULSE 61; RESP 18; O2SAT 98
== END 2021-08-03 15:31 | disposition home or self-care (01) ==
PROVIDERS: Emergency Provider Emergency Medicine; PCP Internal Medicine
DX: S22.41XA Multiple fractures of ribs, right side, initial encounter for closed fracture (principal); N39.0 Urinary tract infection, site not specified; I25.10 Atherosclerotic heart disease of native coronary artery without angina pectoris; F32.A Depression, unspecified; I10 Essential (primary) hypertension; K21.9 Gastro-esophageal reflux disease without esophagitis; E78.5 Hyperlipidemia, unspecified; Z79.899 Other long term (current) drug therapy; Z87.891 Personal history of nicotine dependence; W18.30XA Fall on same level, unspecified, initial encounter; Y93.89 Activity, other specified; Y92.009 Unspecified place in unspecified non-institutional (private) residence as the place of occurrence of the external cause; Y99.8 Other external cause status
CPT/HCPCS: 70450; 72072; 73030; 80048; 81001; 85025; 87086; 87088; 96365; 99284; J7050; A4216

== ENCOUNTER 2021-08-21 13:04 | Emergency (ER) | payer MEDICARE, SELFPAY ==
[2021-08-21] VITALS (33 sets, daily range): BP systolic 40–170; BP diastolic 23–138; PULSE 32–141; RESP 14–41; TEMP 35.5–36.8; O2SAT 7–100; BMI 31.1
[2021-08-21] MEDS: Naloxone 0.4 MG/ML Syringe IV (13:05)
[2021-08-21] MEDS: Etomidate 20 MG/10 ML Vial IV (13:12)
[2021-08-21] MEDS: 0.9% Normal Saline 1,000 ML 999 ML IV (13:13)
--- NOTE | 2021-08-21 13:17 | CT_ITS ---
STUDY: CT BRAIN WITHOUT CONTRAST REASON FOR EXAM: Male, 81 years old. unresponsive RADIATION DOSAGE (If Supplied By Facility): CTDIvol = ( 44.99 ) mGy, DLP = ( 931.09 ) mGycm TECHNIQUE: Transaxial CT imaging of the brain was performed without administration of intravenous contrast material. Individualized dose optimization techniques were used for this CT. COMPARISON: 08/03/2021 FINDINGS: Normal soft tissue structures. Normal calvarium. There is moderate cerebral atrophy with widening of the extra-axial spaces and ventricular dilatation. There are areas of decreased attenuation within the white matter tracts of the supratentorial brain, consistent with microvascular disease changes. Normal basal ganglia and thalami. Normal brainstem. Normal cerebellum. There is no intracranial hemorrhage. There are no findings of an acute ischemic infarction. Normal visualized paranasal sinuses. CT/Brain/Head without Contrast IMPRESSION: Chronic involutional changes of the brain. Electronically Signed: David Roberts MD at 14:38 EST Tel , Service support ,
--- NOTE | 2021-08-21 13:17 | EKG12_ITS ---
Test Reason : CODE Blood Pressure : / mmHG Vent. Rate : 158 BPM Atrial Rate : 159 BPM P-R Int : 000 ms QRS Dur : 088 ms QT Int : 272 ms P-R-T Axes : 000 -22 108 degrees QTc Int : 441 ms Atrial fibrillation with premature ventricular or aberrantly conducted complexes Marked ST abnormality, possible inferior subendocardial injury Abnormal ECG Confirmed by TESHA THOMAS, JAYRO ([id number]), development editor ALLEN JIMENEZ ([id number]) on 08/25/2021 9:40:16 AM Referred By: Confirmed By:JAYRO PARKINSON MD
--- NOTE | 2021-08-21 13:19 | EDS_ITS ---
HPI History of Present Illness Chief Complaint: Unresponsive Informant: EMS Onset/Context/Timing Onset: Today (JPTA) Context: Sudden Onset Narrative Narrative: Patient was at home with his . He was walking in the house and suddenly collapsed and became unresponsive. No other history is known except for the accompanying medication list including clopidogrel and no anticoagulant medications. [facility] Medical History (Updated 08/21/21 @ 22:[address] 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 Chronic pain Chronic pain Cystitis DDD (degenerative disc disease), cervical DDD (degenerative disc disease), lumbar Debility Depression Elevated liver enzymes Essential (primary) hypertension GERD (gastroesophageal reflux disease) Hemorrhoids Hemorrhoids that prolapse with straining, but retract spontaneously Hyperlipidemia Insomnia Labile blood pressure Low back pain Neuropathic pain Obstructive sleep apnea Orthostatic hypotension Pain Physical debility Urinary tract infection Home Medications pravastatin 40 mg PO QHS 02/05/14 [History Last Taken 07/17/21] aspirin 81 mg PO DAILY@0800 02/06/14 [History Last Taken 07/18/21] omeprazole 40 mg PO DAILY 05/13/14 [History Last Taken 07/18/21] gabapentin 300 mg capsule 300 mg PO QHS 01/30/19 [History Last Taken 07/17/21] clopidogrel 75 mg PO QHS 09/20/20 [History Last Taken 07/17/21] multivitamin 1 tab PO DAILYCM 09/20/20 [History Last Taken 07/18/21] docusate sodium 100 mg capsule 100 mg PO BID 10/23/20 [History Last Taken 07/18/21] ascorbate calcium (vitamin C) 500 mg tablet 500 mg PO DAILY 04/23/21 [History Last Taken Unknown] d-mannose 500 mg capsule 2,100 mg PO DAILY 04/23/21 [History Last Taken 07/18/21] hydrocodone 10 mg-acetaminophen 325 mg tablet 1 tab PO BID PRN 04/23/21 [History Last Taken 07/18/21] doxazosin 1 mg PO QHS 07/18/21 [History Last Taken 07/17/21] hydrocodone-acetaminophen 0.5 - 1 tab PO Q4H PRN PRN 3 Days #10 tablet 08/03/21 [Rx Last Taken Unknown] nitrofurantoin monohyd/m-cryst 100 mg PO Q12 #14 capsule 08/03/21 [Rx Last Taken Unknown] Allergy/AdvReac Type Severity Reaction Status Date / Time codeine Allergy Unknown Verified 08/21/21 13:33 Family History Father CVA (cerebral vascular accident) Brother Hypertension CVA (cerebral vascular accident) Mother Cancer leukemia Surgical History History of appendectomy History of back surgery History of coronary artery stent placement (02/12/14) History of kyphoplasty History of left heart catheterization (05/13/14) Hx of cholecystectomy S/P tendon repair Social History household members: spouse Smoking Status: Former smoker how long ago did patient quit smokin years ago alcohol intake: former details: quit 50 years ago substance use type: does not use caffeine: Yes Type: carbonated beverages Number of servings: 2 what type of physical activity do you participate in: walking frequency: 3-4 times per week duration: < 15 minutes/day seatbelt use: always do you feel safe at home: Yes ROS ROS ED Review of Systems ROS Unobtainable: due to mental status EXAM Physical Exam Const Vital Signs: 08/21/21 13:05 08/21/21 13:11 08/21/21 13:12 Temperature 97.3 F L Temperature [14] Temperature [18] Temperature Source Temporal Pulse Rate 94 Pulse Rate [13] Pulse Rate [16] Pulse Rate [18] Pulse Rate [19] Pulse Rate [1] Pulse Rate [20] Pulse Rate [2] Pulse Rate [8] Respiratory Rate 18 Respiratory Rate [18] Respiratory Rate [1] Respiratory Rate [20] Blood Pressure 149/138 H 45/23 L Blood Pressure [14] Blood Pressure [19] Blood Pressure [1] Blood Pressure [20] Blood Pressure [7] Blood Pressure [9] Blood Pressure Mean 141 30 Blood Pressure Source Blood Pressure Position Blood Pressure Location Pulse Ox 7 Oxygen Delivery Method Ambu-Bag Oxygen Flow Rate (L/min) Fraction of Inspired Oxygen (FIO2) 08/21/21 13:17 08/21/21 13:30 08/21/21 13:32 Temperature 95.9 F L Temperature [14] Temperature [18] Temperature Source Core Pulse Rate 99 Pulse Rate [13] Pulse Rate [16] Pulse Rate [18] Pulse Rate [19] Pulse Rate [1] 75 Pulse Rate [20] Pulse Rate [2] Pulse Rate [8] Respiratory Rate 32 H Respiratory Rate [18] Respiratory Rate [1] 39 H Respiratory Rate [20] Blood Pressure 111/95 H Blood Pressure [14] Blood Pressure [19] Blood Pressure [1] 84/62 L Blood Pressure [20] Blood Pressure [7] Blood Pressure [9] Blood Pressure Mean 100 Blood Pressure Source Blood Pressure Position Blood Pressure Location Pulse Ox Oxygen Delivery Method Ambu-Bag Ambu-Bag Mechanical Ventilator Oxygen Flow Rate (L/min) 15 Fraction of Inspired Oxygen (FIO2) 08/21/21 13:46 08/21/21 13:47 08/21/21 13:53 Temperature 98.1 F Temperature [14] Temperature [18] Temperature Source Core Pulse Rate 141 H Pulse Rate [13] Pulse Rate [16] Pulse Rate [18] Pulse Rate [19] Pulse Rate [1] Pulse Rate [20] Pulse Rate [2] 32 L Pulse Rate [8] Respiratory Rate 21 H Respiratory Rate [18] Respiratory Rate [1] Respiratory Rate [20] Blood Pressure 74/59 L Blood Pressure [14] Blood Pressure [19] Blood Pressure [1] Blood Pressure [20] Blood Pressure [7] Blood Pressure [9] Blood Pressure Mean 64 Blood Pressure Source Blood Pressure Position Blood Pressure Location Pulse Ox 73 Oxygen Delivery Method Mechanical Ventilator Ambu-Bag Oxygen Flow Rate (L/min) Fraction of Inspired Oxygen (FIO2) 08/21/21 14:01 08/21/21 14:16 08/21/21 14:22 Temperature 98.3 F 98.3 F Temperature [14] Temperature [18] Temperature Source Core Core Pulse Rate 119 H 132 H Pulse Rate [13] Pulse Rate [16] Pulse Rate [18] Pulse Rate [19] Pulse Rate [1] Pulse Rate [20] Pulse Rate [2] Pulse Rate [8] Respiratory Rate 22 H 23 H Respiratory Rate [18] Respiratory Rate [1] Respiratory Rate [20] Blood Pressure 48/42 L 47/36 L Blood Pressure [14] Blood Pressure [19] Blood Pressure [1] Blood Pressure [20] Blood Pressure [7] Blood Pressure [9] Blood Pressure Mean 44 39 Blood Pressure Source Blood Pressure Position Blood Pressure Location Pulse Ox Oxygen Delivery Method Mechanical Ventilator Oxygen Flow Rate (L/min) Fraction of Inspired Oxygen (FIO2) 08/21/21 14:30 08/21/21 14:31 08/21/21 14:33 Temperature 98.3 F Temperature [14] Temperature [18] Temperature Source Core Pulse Rate 108 H 85 Pulse Rate [13] Pulse Rate [16] Pulse Rate [18] Pulse Rate [19] Pulse Rate [1] Pulse Rate [20] Pulse Rate [2] Pulse Rate [8] 110 H Respiratory Rate 19 H Respiratory Rate [18] Respiratory Rate [1] Respiratory Rate [20] Blood Pressure 41/32 L Blood Pressure [14] Blood Pressure [19] Blood Pressure [1] Blood Pressure [20] Blood Pressure [7] 170/103 H Blood Pressure [9] Blood Pressure Mean 35 Blood Pressure Source Blood Pressure Position Blood Pressure Location Pulse Ox Oxygen Delivery Method Oxygen Flow Rate (L/min) Fraction of Inspired Oxygen (FIO2) 08/21/21 14:40 08/21/21 14:46 08/21/21 14:53 Temperature 98.2 F Temperature [14] Temperature [18] Temperature Source Core Pulse Rate 134 H 130 H 108 H Pulse Rate [13] Pulse Rate [16] Pulse Rate [18] Pulse Rate [19] Pulse Rate [1] Pulse Rate [20] Pulse Rate [2] Pulse Rate [8] Respiratory Rate 26 H 26 H 18 Respiratory Rate [18] Respiratory Rate [1] Respiratory Rate [20] Blood Pressure 68/24 L 53/27 L Blood Pressure [14] Blood Pressure [19] Blood Pressure [1] Blood Pressure [20] Blood Pressure [7] Blood Pressure [9] Blood Pressure Mean 38 35 Blood Pressure Source Blood Pressure Position Blood Pressure Location Pulse Ox 98 81 85 Oxygen Delivery Method Ambu-Bag Mechanical Ventilator Ambu-Bag Oxygen Flow Rate (L/min) Fraction of Inspired Oxygen (FIO2) 08/21/21 14:56 08/21/21 14:59 08/21/21 15:05 Temperature 98.1 F 97.9 F Temperature [14] Temperature [18] Temperature Source Core Core Pulse Rate 97 94 Pulse Rate [13] 108 H Pulse Rate [16] Pulse Rate [18] Pulse Rate [19] Pulse Rate [1] Pulse Rate [20] Pulse Rate [2] Pulse Rate [8] Respiratory Rate 14 25 H Respiratory Rate [18] Respiratory Rate [1] Respiratory Rate [20] Blood Pressure 42/23 L 40/30 L Blood Pressure [14] Blood Pressure [19] Blood Pressure [1] Blood Pressure [20] Blood Pressure [7] Blood Pressure [9] 53/27 L Blood Pressure Mean 29 33 Blood Pressure Source Blood Pressure Position Blood Pressure Location Pulse Ox 93 Oxygen Delivery Method Mechanical Ventilator Oxygen Flow Rate (L/min) Fraction of Inspired Oxygen (FIO2) 08/21/21 15:06 08/21/21 15:11 08/21/21 15:12 Temperature 97.9 F 97.7 F L Temperature [14] Temperature [18] Temperature Source Core Core Pulse Rate 89 87 Pulse Rate [13] Pulse Rate [16] Pulse Rate [18] Pulse Rate [19] Pulse Rate [1] Pulse Rate [20] Pulse Rate [2] Pulse Rate [8] Respiratory Rate 16 18 Respiratory Rate [18] Respiratory Rate [1] Respiratory Rate [20] Blood Pressure 40/30 L Blood Pressure [14] Blood Pressure [19] Blood Pressure [1] Blood Pressure [20] Blood Pressure [7] Blood Pressure [9] Blood Pressure Mean 33 Blood Pressure Source Monitor Blood Pressure Position Supine Blood Pressure Location Left Arm Pulse Ox 70 95 Oxygen Delivery Method Mechanical Ventilator Oxygen Flow Rate (L/min) Fraction of Inspired Oxygen (FIO2) 100 08/21/21 15:14 08/21/21 15:24 08/21/21 15:26 Temperature 97.6 F L 97.2 F L Temperature [14] Temperature [18] Temperature Source Core Core Pulse Rate 95 136 H 134 H Pulse Rate [13] Pulse Rate [16] Pulse Rate [18] Pulse Rate [19] Pulse Rate [1] Pulse Rate [20] Pulse Rate [2] Pulse Rate [8] Respiratory Rate 20 H 41 H 29 H Respiratory Rate [18] Respiratory Rate [1] Respiratory Rate [20] Blood Pressure 40/30 L 55/24 L 94/62 Blood Pressure [14] Blood Pressure [19] Blood Pressure [1] Blood Pressure [20] Blood Pressure [7] Blood Pressure [9] Blood Pressure Mean 33 34 72 Blood Pressure Source Blood Pressure Position Blood Pressure Location Pulse Ox 83 66 Oxygen Delivery Method Mechanical Ventilator Mechanical Ventilator Oxygen Flow Rate (L/min) Fraction of Inspired Oxygen (FIO2) 08/21/21 15:29 08/21/21 15:36 08/21/21 15:37 Temperature 96.6 F L Temperature [14] 97.5 F L Temperature [18] 97.4 F L Temperature Source Core Pulse Rate 125 H 106 H Pulse Rate [13] Pulse Rate [16] 114 H Pulse Rate [18] 131 H Pulse Rate [19] 93 Pulse Rate [1] Pulse Rate [20] 137 H Pulse Rate [2] Pulse Rate [8] Respiratory Rate 28 H Respiratory Rate [18] 38 H Respiratory Rate [1] Respiratory Rate [20] 34 H Blood Pressure 67/39 L 82/53 L Blood Pressure [14] 40/26 L Blood Pressure [19] 55/24 L Blood Pressure [1] Blood Pressure [20] 55/24 L Blood Pressure [7] Blood Pressure [9] Blood Pressure Mean 48 62 Blood Pressure Source Blood Pressure Position Blood Pressure Location Pulse Ox 97 100 Oxygen Delivery Method Mechanical Ventilator Mechanical Ventilator Oxygen Flow Rate (L/min) Fraction of Inspired Oxygen (FIO2) 08/21/21 15:39 08/21/21 15:41 08/21/21 15:43 Temperature 96.5 F L Temperature [14] Temperature [18] Temperature Source Core Pulse Rate 116 H 104 H 63 Pulse Rate [13] Pulse Rate [16] Pulse Rate [18] Pulse Rate [19] Pulse Rate [1] Pulse Rate [20] Pulse Rate [2] Pulse Rate [8] Respiratory Rate 21 H Respiratory Rate [18] Respiratory Rate [1] Respiratory Rate [20] Blood Pressure 97/86 H Blood Pressure [14] Blood Pressure [19] Blood Pressure [1] Blood Pressure [20] Blood Pressure [7] Blood Pressure [9] Blood Pressure Mean 89 Blood Pressure Source Blood Pressure Position Blood Pressure Location Pulse Ox 99 79 Oxygen Delivery Method Mechanical Ventilator Mechanical Ventilator Oxygen Flow Rate (L/min) Fraction of Inspired Oxygen (FIO2) 08/21/21 15:47 Temperature 96.4 F L Temperature [14] Temperature [18] Temperature Source Core Pulse Rate 55 L Pulse Rate [13] Pulse Rate [16] Pulse Rate [18] Pulse Rate [19] Pulse Rate [1] Pulse Rate [20] Pulse Rate [2] Pulse Rate [8] Respiratory Rate 18 Respiratory Rate [18] Respiratory Rate [1] Respiratory Rate [20] Blood Pressure Blood Pressure [14] Blood Pressure [19] Blood Pressure [1] Blood Pressure [20] Blood Pressure [7] Blood Pressure [9] Blood Pressure Mean Blood Pressure Source Blood Pressure Position Blood Pressure Location Pulse Ox 84 Oxygen Delivery Method Mechanical Ventilator Oxygen Flow Rate (L/min) Fraction of Inspired Oxygen (FIO2) Positive well nourished and well developed Constitutional Narrative: Obtunded, blinks with confrontation, extremities flaccid General Appearance ED: well developed HEENT Reports moist mucous membranes normocephalic and atraumatic Eyes PERRL Eyes Narrative: 3 mm and sluggishly reactive Neck No nuchal rigidity, no lymphadenopathy and supple Resp clear to auscultation bilaterally Resp Narrative: Very poor respiratory effort, but spontaneously breathing approximately 18 times per minute Cardio regular rate, regular rhythm and no murmurs GI soft to palpation and non-distended Auscultation: normoactive bowel sounds Palpation: soft Back/Spine normal to inspection Extremity normal to inspection Extremity Narrative: Pulses present distally, thready General Extremety ED: Yes pulses abnormal; Negative for edema or tenderness General Extremity: pulses abnormal; Negative for edema Neuro Joselin Coma Scale: document GCS findings Spontaneous None None 6 Motor Exam: strength 5/5 throughout Skin Skin Narrative: Pallorous without cyanosis. Ecchymosis right upper chest wall, just distal to axilla, in order ecchymosis and right upper arm. No deformities. MDM MDM MDM Narrative Medical decision making narrative: Patient initially was unresponsive but barely breathing, with a pulse. During our evaluation, and establishing an airway, the patient lost his pulse and ACLS protocol was followed and CPR was performed. His rhythm was PEA at that time, it appeared that he slowly lost his blood pressure and pulse. After single round of ACLS he regained a pulse and was in sinus rhythm that soon afterwards returned to atrial fibrillation. During work- up, he lost it again, after we got him back after another round including calcium and atropine because of bradycardia/PEA, I placed a central line and we started Levophed in order to stabilize his vital signs/pulses to get him to CT. I reviewed the CT. The central line appears to be in place, and he appears to have a large right pleural effusion. It does not appear to be attention on my interpretation still waiting for CT result. A CT head does not show bleed. The patient had another cardiac arrest. As I discovered from respiratory we are not able to get his sats into the 90s at all with the vent yet, and so although I did not have an interpretation of the CT, I thought it would be most reasonable to put a right thoracostomy tube in which I did at the bedside see the procedure note. At the insertion of the tube, blood came out immediately. Initially the tube was directed to the apex, it was withdrawn partially and applied suction. Immediately the 2 L suction canister filled and another one was placed, with an immediate 500 cc out, for a total of 2.5 L, and continuously bleeding. Family arrives at this point, when the patient then had another PEA arrest. Labs were able to be reviewed at this point, they show a hemoglobin of 9.1, normal electrolytes, his ABG shows basically a metabolic acidosis. I went outside the room to talk with family. It sounds like this was not a medical arrest, he was not unresponsive prior to leaving the home according to family, different from EMS report. EMS did report that he fell, family states that he was simply reaching up to get something out of a cabinet, he lost his balance and fell to his right side, he said ow when he hit the ground, had some trouble getting up due to pain, but he did not specify where to family, they just called EMS to get him to the hospital without knowing anything else. He was awake and talking to them at that point but when he arrived here he was not and he was unresponsive barely breathing. Family states that on July 30, he was seen here after a fall where he was diagnosed with several rib fractures, I confirm this, the patient saw me on August 03 for that. Family states that he had been diagnosed with fractures that we do not have documentation of, hinting at the clavicle and the sternum. This is his only visit since then. Family states that he has not been complaining of any dyspnea when he walks with his walker recently. Given all this, I suspect that this is an acute traumatic hemothorax from his fall that happened just prior to arrival. Therefore to think will be best served at a trauma center. Discussed with family, they choose [facility]. However shortly after that, the patient arrested again, ACLS protocol was pe rformed and we were able to get him back again after epinephrine and CPR. PEA again with bradycardia. Trauma blood ordered in addition to multiple other liters of IV fluids. Accepted by Dr. Christine in the ED at [facility], calling for air EMS. According to prior documentation it appears that the patient is actually on Eliquis, and it is not on his medication list. However family states he is not on Eliquis, they think he is on chest clopidogrel. Patient continued to have several episodes of losing his pulse, each time a CODE BLUE was called, ACLS protocol was followed, see the nursing documentation for details. The patient continued to have episodes of spinal reflexes, including biting on the tube, and decorticate posturing with his arms. We provided no more sedation after intub ating except for an initial 2 g of Ativan. TXA 1 g was given just in case he was anticoagulated. Throughout all of this, we had the family present. A total of 3 L of blood was withdrawn from the thoracostomy, with the patient still bleeding at the time of expiration; as we continue to code the patient, the family decided that although we had a pulse back, the next time he coded they wanted us to keep him comfortable and allow him to peacefully. There were 3 family member present including the , and all were in agreement with this plan. When we got his pulse back that time before they made this decision, his blood pressure was in the 90s and I asked him if they wanted me to proceed with attempting to transfer the patient by air to [place]. They asked us to wait to see how he did. Shortly thereafter, he gradually dropped his pressure despite getting trauma blood and more IV fluids, progressively became bradycardic, lost his pulse, and was declared at 1553 with the family at the bedside. 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 Lab Data Attestation: I reviewed the patient's lab results. Labs: Laboratory Results - last 24 hr 08/21/21 08/21/21 08/21/21 13:15 13:15 13:15 WBC 6.5 RBC 2.63 L Hgb 9.1 L Hct 28.7 L MCV 109.1 H MCH 34.6 H MCHC 31.7 L RDW Std Deviation 55.6 H RDW Coeff of [place] 14.1 Plt Count 182 MPV 11.1 Immature Gran % (Auto) 0.800 Neut % (Auto) 50.7 Lymph % (Auto) 38.0 [place] % (Auto) 6.0 Eos % (Auto) 3.9 Baso % (Auto) 0.6 Absolute Neuts (auto) 3.3 Absolute Lymphs (auto) 2.45 Nucleated RBC % 0.6 PT 15.8 H INR 1.3 APTT 30.5 Sodium 139 Potassium 4.2 Chloride 111 H Carbon Dioxide 21.0 Anion Gap 7 BUN 15 Creatinine 1.05 Estim Creat Clear Calc 62.61 Est GFR (MDRD) Af Amer 88 Est GFR (MDRD) Non-Af 72 BUN/Creatinine Ratio 14.3 Glucose 173 H Lactic Acid Calcium 8.5 Total Bilirubin 0.50 AST 24 ALT 24 Alkaline Phosphatase 119 H Troponin I High Sens 12 Total Protein 5.8 L Albumin 2.6 L Globulin 3.2 Albumin/Globulin Ratio 0.8 L Urine Color Urine Clarity Urine pH Ur Specific [place] Urine Protein Urine Glucose (UA) Urine Ketones Urine Occult Blood Urine Nitrite Urine Bilirubin Urine Urobilinogen Ur Leukocyte Esterase Urine RBC Urine WBC Ur Squamous Epith Cells Urine Bacteria Urine Mucus 08/21/21 08/21/21 08/21/21 13:15 13:20 14:55 WBC RBC Hgb 6.4 L Hct 21.6 L MCV MCH MCHC RDW Std Deviation RDW Coeff of [place] Plt Count MPV Immature Gran % (Auto) Neut % (Auto) Lymph % (Auto) [place] % (Auto) Eos % (Auto) Baso % (Auto) Absolute Neuts (auto) Absolute Lymphs (auto) Nucleated RBC % PT INR APTT Sodium Potassium Chloride Carbon Dioxide Anion Gap BUN Creatinine Estim Creat Clear Calc Est GFR (MDRD) Af Amer Est GFR (MDRD) Non-Af BUN/Creatinine Ratio Glucose Lactic Acid 5.4 H* Calcium Total Bilirubin AST ALT Alkaline Phosphatase Troponin I High Sens Total Protein Albumin Globulin Albumin/Globulin Ratio Urine Color Yellow Urine Clarity Clear Urine pH 5.0 Ur Specific [place] 1.020 Urine Protein 15 H Urine Glucose (UA) Normal Urine Ketones Negative Urine Occult Blood Negative Urine Nitrite Negative Urine Bilirubin Negative Urine Urobilinogen Normal Ur Leukocyte Esterase Negative Urine RBC 0-5 SEEN Urine WBC 0 SEEN Ur Squamous Epith Cells 0-5 SEEN Urine Bacteria 0 SEEN Urine Mucus 0 SEEN ABG Data ABG results: ABG 08/21/21 13:51 Specimen Type ART Sample Site R Brach pH 7.13 L* Bicarbonate Actual 6.9 L Total CO2 8 Base Excess -22 L O2 Saturation 33 L O2 % 100 ABG pCO2 20.8 L ABG pO2 26 L* O2 Delivery Device Bagging Crit Call To/Read Back Yes Blood Gas Notified Whom Dr. Becerra Radiography Diagnostic Testing: Clinical Impression(s) from Imaging Studies Brain CT 08/21/21 13:17 IMPRESSION: Chronic involutional changes of the brain. Electronically Signed: David Roberts MD at 14:38 EST Tel , Service support , Chest CTA 08/21/21 13:25 IMPRESSION: 1. No CT evidence of pulmonary embolism. 2. Multiple acute right rib fractures with a large right hemothorax with extensive right lung collapse. 3. 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 Electronically Signed: David Roberts MD at 14:48 EST Tel , Service support , Chest X-Ray 08/21/21 13:35 IMPRESSION: 1. Interval placement of endotracheal tube with the tip above the jeri. 2. Interval placement of nasogastric tube with the tip below the diaphragm. 3. Large right pleural effusion with right lung atelectasis. Electronically Signed: David Roberts MD at 13:47 EST Tel , Service support , Chest X-Ray 08/21/21 15:30 IMPRESSION: 1. Interval placement of right-sided thoracostomy tube with improvement in the right pleural effusion which still extends over the apex of the right lung but with no pneumothorax and improved aeration the right lung. 2. Interval placement of right subclavian deep venous line with tip the catheter overlying the distal superior vena cava and no pneumothorax. 3. Endotracheal tube and nasogastric tube both which are unchanged. Electronically Signed: David Roberts MD at 16:05 EST Tel , Service support , EKG Initial EKG: Attestation: I personally reviewed and interpreted this EKG as follows: Interpretation: No Acute Injury Pattern, Atrial Fibrillation and Non- Specific ST Changes Procedures Intubations Intubation Method: orotracheal Intubation Verification: Positive color change and Bilateral breath sounds confirmed (RSI performed after succinylcholine 100 mg, etomidate 20 mg. 8.0 ETT passed while visualizing it passing through the cords via glide scope MAC 3. Confirmed by chest x-ray.) Intubation Complications: no complications Other Procedures Procedure(s): Central line right subclavian: Sterile prep and drape, full body drape, no anesthesia given locally due to patient sedated and unresponsive on event. Chlorhexidine prep. Finder needle found dark red nonpulsatile blood, 16 cm triple-lumen catheter placed via modified Seldinger technique, all 3 ports deanna back dark red nonpulsatile blood and flushed easily, sutured in place, dressed with chlorhexidine dressing. Confirmed placement by CT. Right thoracostomy: Sterile prep and drape with Betadine, sterile gown and gloves. Incised over rib approximately 6 with a #10 blade, bluntly probed down over top of rib #5, puncturing into the parietal pleura, blood was immediately expressed, a 28 F thoracostomy tube was inserted into the apex and withdrawn slightly, sutured into place with 3-0 Ethilon, and attached to a pleura seal container via suction. Dressed with Vaseline gauze and appropriate dressing. Confirm placement by chest x-ray, no complications. Critical Care Time Critical Care Time: Yes Critical care time (excluding procedures): 75-104 minutes (80), Including time spent:, Discussing w/Patient &/or Family/[employer]her [employer] Crusher Tender, Discussing w/Consultants, Arranging Admission or Transfer, Performing Direct Patient Care at Bedside and - (Not including procedure time) Discharge Plan Triage Chief Complaint: Unresponsive ED Provider: Neymar Becerra Dx/Rx/DC Orders Clinical Impression: Traumatic hemothorax, Acute blood loss anemia, Hemorrhagic shock, Cardiopulmonary arrest, Accidental fall Prescriptions: No Action gabapentin 300 mg capsule 300 mg PO QHS RF: 0 docusate sodium [Colace] 100 mg capsule 100 mg PO BID RF: 0 ascorbate calcium (vitamin C) 500 mg tablet 500 mg PO DAILY RF: 0 d-mannose 500 mg capsule 2,100 mg PO DAILY RF: 0 hydrocodone-acetaminophen 10-325 mg tablet 1 tab PO BID PRN (Reason: Pain) RF: 0 pravastatin 40 MG tablet 40 mg PO QHS RF: 0 aspirin 81 MG tablet 81 mg PO DAILY@0800 RF: 0 omeprazole 40 MG capsule 40 mg PO DAILY RF: 0 multivitamin 1 TABLET tablet 1 tab PO DAILYCM RF: 0 clopidogrel 75 MG tablet 75 mg PO QHS RF: 0 doxazosin 1 mg Tablet 1 mg PO QHS RF: 0 hydrocodone-acetaminophen [hydrocodone-acetaminophen] 1 TABLET tablet 0.5 - 1 tab PO Q4H PRN PRN (Reason: Pain) 3 Days Qty: 10 RF: 0 nitrofurantoin monohyd/m-cryst [nitrofurantoin monohyd/m-cryst] 100 MG capsule 100 mg PO Q12 Qty: 14 RF: 0 Primary Care Provider: Josi Moreira Referrals: Josi Moreira DO [Primary Care Provider] - Disposition Disposition: Discharge Date/Time: 08/21/21 17:08 Date/Time: 08/21/21 17:08
--- NOTE | 2021-08-21 13:25 | CT_ITS ---
STUDY: CTA CHEST REASON FOR EXAM: Male, 81 years old. unresponsive, PEA cardiac arrest RADIATION DOSAGE (If Supplied By Facility): CTDIvol = ( 16.17 ) mGy, DLP = ( 590.72 ) mGycm TECHNIQUE: The examination was performed with the intravenous administration of IV 100mL Isovue-370. Post-processing of the angiographic images was performed, with multiplanar reformation and 3D reconstruction. Individualized dose optimization techniques were used for this CT. COMPARISON: 04/14/2020, chest x-ray earlier today FINDINGS: Endotracheal tube with the tip above the jeri. Nasogastric tube coiled in the stomach. Right subclavian deep venous line with tip the catheter in the distal superior vena cava. Normal enhancement of the main pulmonary artery and right and left pulmonary arteries. Normal enhancement of the bilateral peripheral pulmonary arteries. There is no demonstrated pulmonary embolism. Normal thoracic aorta and visualized great vessels. There is no demonstrated aortic dissection. Normal heart and pericardium. Normal mediastinum. Normal hilar regions. Normal visualized trachea and bronchi. The lungs are well expanded. Normal pulmonary parenchyma. Large right pleural effusion of increased attenuation worrisome for hemothorax with significant right lung collapse. Normal chest wall structures. Multiple acute right rib fractures status post vertebroplasty at multiple levels in the lower thoracic spine. Innumerable lytic lesions of the thoracic spine with complete destruction of the T8 vertebral body consistent with metastatic disease. Normal visualized upper abdomen. CT/CTA Chest W/WO Contrast IMPRESSION: 1. No CT evidence of pulmonary embolism. 2. Multiple acute right rib fractures with a large right hemothorax with extensive right lung collapse. 3. 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 Electronically Signed: David Roberts MD at 14:48 EST Tel , Service support ,
[2021-08-21 13:27] LABS: Absolute Lymphocyte Count 2.45 X10^3/uL (0.83-4.51); Absolute Neutrophil Count 3.3 X10^3/uL (2.0-7.7); Basophil# 0.04 X10^3/uL; Basophil% 0.6 % (0-1); Eosinophil# 0.25 X10^3/uL; Eosinophils% 3.9 % (0-5); Hematocrit 28.7 % (40-54); Hemoglobin 9.1 g/dL (13.0-16.5); Lymphocyte # 2.45 X10^3/ul (0.83-4.51); Mean Corp Hgb Conc 31.7 g/dL (32-36); Mean Corpuscular Hgb 34.6 pg (27.0-32.0); Mean Corpuscular Volume 109.1 fL (80-94); Mean Platelet Vol. 11.1 fl (6.2-12.0); Monocyte# 0.39 X10^3/uL; NRBC Flagged by Analyzer 0.6 % (0-5); Neutrophil # 3.27 X10^3/uL (2.7-7.7); Neutrophil % 50.7 % (47-70); Platelet Count 182 K/mm3 (150-450); RBC Distribution Width CV 14.1 % (11.6-14.6); RBC Distribution Width SD 55.6 fl (35.1-43.9); Red Blood Count 2.63 M/mm3 (4.6-6.2); White Blood Count 6.5 K/mm3 (4.4-11.0)
[2021-08-21 13:32] LABS: Bacteria 0 SEEN /hpf (None Seen); Mucous, Urine 0 SEEN /hpf (<or=2+); White Blood Cells 0 SEEN /hpf (0-5)
[2021-08-21 13:34] LABS: Color, Urine Yellow (Yellow); Glucose, Dipstick Normal (Normal); Ketone-Dipstick Negative (Negative); Leukocyte Esterase-Dipstick Negative /ul (Negative); Nitrite-Dipstick Negative (Negative); Occult Blood-Urine Negative /ul (Negative); Protein-Dipstick 15 mg/dl (Negative); Urine Bilirubin Dipstick Negative (Negative); Urine Clarity Clear (Clear); Urine Urobilinogen Normal (Normal)
[2021-08-21] MEDS: LORazepam 2 MG/ML Syringe IV (13:35)
--- NOTE | 2021-08-21 13:35 | RAD_ITS ---
STUDY: X-RAY CHEST REASON FOR EXAM: Male, 81 years old. ett placement TECHNIQUE: Single AP portable view of the chest. COMPARISON: 09/18/2020 FINDINGS: Interval placement of endotracheal tube with the tip proximal and a 5 cm above the jeri. Interval placement of nasogastric tube with the tip below the diaphragm. Status post anterior cervical discectomy and fusion lower cervical spine. The lungs are clear and expanded. Large right pleural effusion with right lower lobe atelectasis. Normal size heart. Normal mediastinum and angie. Normal visualized pulmonary arteries. Normal visualized aortic arch and descending thoracic aorta. Normal visualized thoracic spine. Normal visualized ribs, clavicles, and shoulders. There is no demonstrated abnormality of the visualized soft tissue structures of the upper abdomen. RAD/Chest 1 View (Portable) IMPRESSION: 1. Interval placement of endotracheal tube with the tip above the jeri. 2. Interval placement of nasogastric tube with the tip below the diaphragm. 3. Large right pleural effusion with right lung atelectasis. Electronically Signed: David Roberts MD at 13:47 EST Tel , Service support ,
[2021-08-21 13:36] LABS: International Normalized Ratio 1.3; Partial Thromboplast Time 30.5 Seconds (24.1-36.2); Prothrombin Time (Protime)PT. 15.8 SECONDS (11.7-14.9)
[2021-08-21 13:44] LABS: ALB/GLOB Ratio 0.8 RATIO (0.9-2.4); AST(SGOT) 24 U/L (15-37); Alanine Aminotransfer ALT/SGPT 24 U/L (16-61); Albumin, Serum 2.6 g/dL (3.2-5.0); Alkaline Phosphatase 119 U/L (45-117); Anion Gap 7 (5-15); BUN 15 mg/dL (7-18); BUN/Creat Ratio 14.3 RATIO (10-20); Calcium,Total 8.5 mg/dL (8.5-10.1); Chloride 111 mmol/L (98-107); Creatinine, Serum 1.05 mg/dL (0.70-1.30); EST Glomerular Filtration Rate 72 mL/min (>60); Est Glom Filt Rate - Afr Amer 88 mL/min (>60); Estimated Creatinine Clearance 62.61 ml/min; Globulin 3.2 g/dL (2.2-4.2); Glucose 173 mg/dL (74-106); Potassium 4.2 mmol/L (3.5-5.1); Protein, Total 5.8 g/dL (6.4-8.2); Sodium Level 139 mmol/L (136-145); Troponin-I HS 12 pg/mL (3.0-78.0)
[2021-08-21 13:49] LABS: Red Blood Cells-Urine 0-5 SEEN /hpf (0-5); Squamous Epithelial Cells - UA 0-5 SEEN /hpf (0-5)
[2021-08-21 13:52] LABS: Lactic Acid 5.4 mmol/L (0.4-1.9)
[2021-08-21 14:01] LABS: Base Excess -22 mmol/L (-2 to +2); Bicarbonate 6.9 mmol/L (22-26); Blood Gas Specimen Type ART; FI02 100; O2 Delivery Device Bagging; PO2 26 mmHG (75-100); SITE R Brach; SO2 33 % (95-99); Total Carbon Dioxide 8 mmol/L; pCO2 20.8 mmHg (35-45); pH 7.13 (7.35-7.45)
[2021-08-21] MEDS: Norepinephrine 8 mg/250 mL 0.9% NS 9.4 MG CONT INF (14:01)
[2021-08-21] MEDS: Atropine Sulfate 1 MG/10 ML Syringe IV (14:24)
--- NOTE | 2021-08-21 14:48 | NURSING ---
1314 CODE BLUE 1340 CODE BLUE 1421 CODE BLUE, CANCELLED 1433 CODE BLUE 1448 CODE BLUE
--- NOTE | 2021-08-21 14:58 | ED.RN ---
FIRST SUCTION CONTAINER WITH 2000 OUT OF DARK RED OUTPUT.
--- NOTE | 2021-08-21 15:05 | NURSING ---
CALLED [facility] FOR TRANSFER. DR ISAAC IN ER
--- NOTE | 2021-08-21 15:10 | CM.ED ---
SW Note Referral Source: [facility] (x5) Referral Reason: [facility] SW responded to [facility] on 3 occassions. No family was available. SW called family and spoke to Carrie, his and stated 2 times, via phone calls, that it was imperative that they come to Ed immediately as patient has coded numerous times and is in serious condition. and both daughter's were present in the ED. MD provided update. Family said that patient was ready to go when asked about patient's wishes. SW remained present for emotional support. SW remains available for support. Plan: Emotional support provided Chelly MCELROY
[2021-08-21 15:11] LABS: Hematocrit 21.6 % (40-54); Hemoglobin 6.4 g/dL (13.0-16.5); POSITIVE COUNT YES; POSITIVE MORPHOLOGY YES
--- NOTE | 2021-08-21 15:19 | NURSING ---
[facility] CALLED [id number]
--- NOTE | 2021-08-21 15:30 | RAD_ITS ---
STUDY: X-RAY CHEST REASON FOR EXAM: Male, 81 years old. chest tube placement TECHNIQUE: Single AP portable view of the chest. COMPARISON: 08/21/2021 at 1322 FINDINGS: Interval placement of a right-sided thoracostomy tube with improvement in the right-sided pleural effusion which still extends over the apex of the right lung and with no pneumothorax. Interval placement of right subclavian deep venous line with tip the catheter overlying the distal superior vena cava with no pneumothorax. Endotracheal tube and nasogastric tube both which are unchanged. Improved aeration of the right lung. There is no demonstrated pleural abnormality. Normal size heart. Normal mediastinum and angie. Normal visualized pulmonary arteries. Normal visualized aortic arch and descending thoracic aorta. Status post vertebroplasty in the thoracic spine. Normal visualized ribs, clavicles, and shoulders. There is no demonstrated abnormality of the visualized soft tissue structures of the upper abdomen. RAD/Chest 1 View (Portable) IMPRESSION: 1. Interval placement of right-sided thoracostomy tube with improvement in the right pleural effusion which still extends over the apex of the right lung but with no pneumothorax and improved aeration the right lung. 2. Interval placement of right subclavian deep venous line with tip the catheter overlying the distal superior vena cava and no pneumothorax. 3. Endotracheal tube and nasogastric tube both which are unchanged. Electronically Signed: David Roberts MD at 16:05 EST Tel , Service support ,
[2021-08-21 17:21] LABS: Reflex Lactate? Y
== END 2021-08-21 17:08 ==
PROVIDERS: Emergency Provider Emergency Medicine; PCP Internal Medicine
DX: S27.1XXA Traumatic hemothorax, initial encounter (principal); I46.9 Cardiac arrest, cause unspecified; D62 Acute posthemorrhagic anemia; R57.8 Other shock; S22.41XA Multiple fractures of ribs, right side, initial encounter for closed fracture; W19.XXXA Unspecified fall, initial encounter; Y93.01 Activity, walking, marching and hiking; Y92.009 Unspecified place in unspecified non-institutional (private) residence as the place of occurrence of the external cause; I10 Essential (primary) hypertension; E78.5 Hyperlipidemia, unspecified; F32.A Depression, unspecified; G47.33 Obstructive sleep apnea (adult) (pediatric); G89.29 Other chronic pain; M50.30 Other cervical disc degeneration, unspecified cervical region; M51.36 Other intervertebral disc degeneration, lumbar region; I48.91 Unspecified atrial fibrillation; K21.9 Gastro-esophageal reflux disease without esophagitis; I25.10 Atherosclerotic heart disease of native coronary artery without angina pectoris; Z87.440 Personal history of urinary (tract) infections; Z95.5 Presence of coronary angioplasty implant and graft; Z79.82 Long term (current) use of aspirin; Z79.02 Long term (current) use of antithrombotics/antiplatelets; Z79.899 Other long term (current) drug therapy; Z87.891 Personal history of nicotine dependence
CPT/HCPCS: 31500; 31720; 32551; 36430; 36556; 36600; 51702; 70450; 71045; 71275; 80053; 81001; 82803; 83605; 84484; 85014; 85018; 85025; 85610; 85730; 87040; 87086; 92950; 93005; 94002; 96361; 96365; 96366; 96374; 99284; J7030; J7050; P9016; Q9967; A4216; C1751; J2310